=== PATIENT | female | born 1940 | race Caucasian/White ===

== ENCOUNTER 2016-09-01 15:50 | Inpatient (IN) | payer OTHER, BC ==
--- NOTE | 2016-09-01 16:21 | PDOC ---
History of Present Illness - General Stated Complaint: NAUSIA/VOMITING Time Seen by Provider: 09/01/16 16:19 - History of Present Illness Initial Comments: 09/01/16 17:33 patient is a 75 year old female with medical history significant for pancreatic ca diagnosed one year ago presenting with nausea and abdominal pain. Past History - Past Medical History Allergies/Adverse Reactions: Allergies Allergy/AdvReac Type Severity Reaction Status Date / Time shellfish derived Allergy Intermediate Verified 09/01/16 16:29 Home Medications: Ambulatory Orders Amlodipine Besylate [Norvasc -] 10 mg PO HS 11/23/15 Pantoprazole Sodium [Protonix] 40 mg PO DAILY 11/23/15 Tramadol HCl [Ultram] 50 mg PO Q8H #10 tablet MDD 3 tabs 11/24/15 Lipase/Protease/Amylase [Creon Dr 24,000 Units Capsule] 2 each PO TID 09/01/16 Anemia: No Asthma: No Cancer: No Cardiac Disorders: No CVA: No COPD: No CHF: No Dementia: No Diabetes: No GI Disorders: Yes (GERD) Disorders: No HTN: Yes Hypercholesterolemia: Yes Kidney Stones: Yes Liver Disease: No Seizures: No Thyroid Disease: No - Surgical History Abdominal Surgery: Yes (ercp) Appendectomy: No Cardiac Surgery: No Cholecystectomy: No Lung Surgery: No Neurologic Surgery: No Orthopedic Surgery: No - Immunization History Immunization Up to Date: Yes - Psycho/Social/Smoking Cessation Hx Anxiety: No Suicidal Ideation: No Smoking Status: No Smoking History: Never smoked Have you smoked in the past 12 months: No Number of Cigarettes Smoked Daily: 0 Cigars Per Day: 0 Hx Alcohol Use: No Drug/Substance Use Hx: No Hx Substance Use Treatment: No ED Treatment Course - LABORATORY CBC & Chemistry Diagram: 09/01/16 17:40 09/01/16 17:40 - RADIOLOGY Radiograph Interpretation: 09/01/16 21:15 Exam: Noncontrast CT abdomen and pelvis Images: 482 Clinical indication: Abdominal pain. A prior examination performed on November 05, 2011 was reviewed. Findings: Subsegmental dependent atelectatic changes are noted in the lung bases. Hepatic hypodensities are unchanged. There's been interval placement of a CBD stent. Pneumobilia indicates patency of the stent. The gallbladder is edematous with high attenuation material in the gallbladder lumen that may represent sludge or stones. Strandy infiltration is noted in the pericholecystic fat. The spleen and pancreas have a normal unenhanced appearance. The adrenal glands are unremarkable. The kidneys have a normal unenhanced appearance. No calculi are seen. There is no hydronephrosis or hydroureter. The gastrointestinal tract does not appear obstructed. No thickened or dilated bowel is seen. The appendix has a normal appearance. There is no mesenteric infiltration. There is no free fluid. The uterus has a lobulated contour consistent with the presence of fibroids several of which appear partially calcified. No adnexal masses are seen. The urinary bladder is unremarkable. No abdominal or pelvic adenopathy is seen. Impression: Interval placement of a CBD stent which appears patent. Edematous thickening of the gallbladder wall with stranding in the pericholecystic fat. Consider cholecystitis. Medical Decision Making - Medical Decision Making 09/01/16 17:30 patient mainly c/o nausia zofran Patient also c/o smith but concerned about taking PO ofirmir, 1000 09/01/16 18:32 patient has history of contrast induced nephritis from CT contrast. Order CT abdomen w/o contrast 09/01/16 21:09 Spoke with patients GI, Dr. Arik Marte, [phone] about patient and he asked if we could admit her and he can arrange transfer tomorrow. 09/01/16 21:[address] Pugh regarding admitting patient. She will speak with the hospitalist, Dr. Doherty, regarding any recommendations. 09/01/16 22:02 Had a long conversation with the patient and her about the plan. They were initially concerned about staying in the hospital but eventually agreed that would be the best course. 09/01/16 22:04 Patient was accepted to med/surg by Dr. Doherty. Rec Levo and Flagyl *DC/Admit/Observation/Transfer Diagnosis at time of Disposition: Cholecystitis, LFT elevation, Hyperbilirubinemia - Discharge Dispostion Admit: Yes
--- NOTE | 2016-09-01 16:21 | PDOC ---
Attending Attestation - HPI HPI: The patient is a 75 yo F with a PMHx of HTN, GERD, gallstones and recent Dx of pancreatic CA (pancreatic stent placement last September) who presents with severe abdominal pain that is worse on the R side for 1 day. Patient describes the pain was 10/10 and notes that the pain has diminished slightly since taking toradol earlier today. Patient states that she was able to eat oatmeal and coffee this morning, but later today was nauseous. Patient denies vomiting and diarrhea. Patient states her last BM was 2 days ago. Patient states she can pass gas. Patient endorses fever (taken at home to be 100.1) and chills. Patient denies dysuria. Patient notes she had an MRI 1 month ago that showed her pancreatic CA had not changed in size. PCP: Dr. Columba Zheng Oncologist: Cortez Isidro [phone] GI: Estuardo Elise [phone] (cell) [phone] (work) Radiation Claude Guojames [phone] - Physicial Exam PE: GENERAL: Awake, alert, and fully oriented, in no acute distress HEAD: No signs of trauma EYES: PERRLA, EOMI, sclera anicteric, conjunctiva clear ENT: Auricles normal inspection, hearing grossly normal, nares patent, oropharynx clear without exudates. Moist mucosa NECK: Normal ROM, supple, no lymphadenopathy, JVD, or masses LUNGS: Breath sounds equal, clear to auscultation bilaterally. No wheezes, and no crackles HEART: Regular rate and rhythm, normal S1 and S2, no murmurs, rubs or gallops ABDOMEN: Soft, Tender to palpation in epigastric region. Nonsurgical, normoactive bowel sounds. No guarding, no rebound. No masses EXTREMITIES: Normal range of motion, no edema. No clubbing or cyanosis. No cords, erythema, or tenderness NEUROLOGICAL: Cranial nerves II through XII grossly intact. Normal speech, gait not assessed SKIN: Warm, Dry, normal turgor, no rashes or lesions noted - Medical Decision Making Will obtain: Labs Abdomen and Pelvis CT Urine culture Blood cultures Lipase Will reassess Documentation prepared by Geovanna Starr, acting as medical records assistant for Srini Montoya MD/. <Geovanna Starr - Last Filed: 09/01/16 17:38> - ED Attending Attestation I have performed the following: I have examined & evaluated the patient, The case was reviewed & discussed with the resident, I agree w/resident's findings & plan, Exceptions are as noted <Srini Montoya - Last Filed: 09/05/16 16:56>
[2016-09-01 16:29] VITALS: BMI 21.9
[2016-09-01] MEDS ORDERED: SODIUM CHLORIDE 1,000 ML IV STA (17:06)
[2016-09-01] MEDS ORDERED: ONDANSETRON 4 MG/2 ML VIAL IVPB ONE (17:10)
[2016-09-01] MEDS ORDERED: ACETAMINOPHEN 1000 MG/100 ML VIAL (NON FORMULARY) IVPB ONE (17:34)
[2016-09-01 17:48] LABS: BASOPHIL 0.3 % (0-2.0); MCH 27.5 pg (25.7-33.7); MCHC 32.6 g/dl (32.0-36.0); MEAN CELL VOLUME 84.4 fl (80-96); MEAN PLT VOLUME 7.8 fl (7.5-11.1); PLATELET COUNT 186 K/MM3 (134-434); RDW 13.5 % (11.6-15.6); WHITE BLOOD COUNT 7.1 K/mm3 (4.0-10.0)
[2016-09-01] MEDS ORDERED: ONDANSETRON 4 MG/2 ML VIAL ONE (17:49)
[2016-09-01 18:00] LABS: INR 1.12 (0.82-1.09); PROTHROMBIN TIME (PATIENT) 12.3 SEC (9.98-11.88)
[2016-09-01] MEDS ORDERED: ACETAMINOPHEN INJECTION 100 ML IVPB ONE (18:08)
[2016-09-01 18:16] LABS: ALBUMIN 3.7 g/dl (3.4-5.0); ANION GAP 8 (8-16); BILIRUBIN,DIRECT 0.6 mg/dL (0.0-0.2); BILIRUBIN,TOTAL 1.3 mg/dL (0.2-1.0); CALCIUM 8.7 mg/dL (8.5-10.1); CO2 27 mmol/L (21-32); CREATININE 0.6 mg/dL (0.55-1.02); GLUCOSE,RANDOM 148 mg/dL (74-106); SGOT/AST 302 U/L (15-37); SGPT/ALT 244 U/L (12-78); TOT PROT 7.6 g/dl (6.4-8.2)
[2016-09-01 18:17] LABS: ALK PHOS 216 U/L (45-117)
--- NOTE | 2016-09-01 21:42 | HP ---
HISTORY OF PRESENT ILLNESS: Patient is a 75 year old female with a PMHx of HTN, GERD, and Pancreatic cancer (s/p CBD stent 09/2015), Cholelithiasis/Choledocholithiasis s/p ERCP who presented with severe right sided abdominal pain for the last 24 hours. Patient took Toradol with little relief but was unable to tolerate food due to associated symptom of nausea, which prompted this ED visit. Patient otherwise denies chest pain, palpitations, shortness of breath, loss of consciousness, hematuria, dysuria. HOME MEDICATIONS: Home Medications Medication Instructions Recorded Amlodipine Besylate [Norvasc -] 10 mg PO HS 11/23/15 Pantoprazole Sodium [Protonix] 40 mg PO DAILY 11/23/15 Tramadol HCl [Ultram] 50 mg PO Q8H #10 tablet MDD 3 tabs 11/24/15 Lipase/Protease/Amylase [Creon Dr 2 each PO TID 09/01/16 24,000 Units Capsule] PHYSICAL EXAMINATION Vital Signs - 24 hr 09/01/16 09/01/16 15:50 18:53 Temperature 98.8 F 98.6 F Pulse Rate 68 Pulse Rate [ 74 Right Radial] Respiratory 18 22 Rate Blood Pressure 132/60 Blood Pressure 121/56 [Right Arm] O2 Sat by Pulse 100 99 Oximetry (%) GENERAL: Awake, alert, and fully oriented, in no acute distress. EYES: Sclera anicteric, conjunctiva clear. EARS, NOSE, THROAT: Oropharynx clear without exudates. Moist mucous membranes. LUNGS: Breath sounds equal, clear to auscultation bilaterally. No wheezes, and no crackles. No accessory muscle use. HEART: Regular rate and rhythm, normal S1 and S2 without murmur, rub or gallop. ABDOMEN: Soft, nontender, not distended, normoactive bowel sounds, no guarding, no rebound, no masses. LOWER EXTREMITIES: 2+ pulses, warm, well-perfused. No calf tenderness. No peripheral edema. NEUROLOGICAL: Normal speech. No focal deficits Laboratory Results - last 24 hr 09/01/16 09/01/16 09/01/16 17:40 17:40 17:40 WBC 7.1 RBC 4.40 D Hgb 12.1 D Hct 37.1 D MCV 84.4 MCH 27.5 MCHC 32.6 RDW 13.5 Plt Count 186 MPV 7.8 Neutrophils % 91.0 H D Lymphocytes % 3.8 L D Monocytes % 4.9 Eosinophils % 0.0 D Basophils % 0.3 INR 1.12 Sodium 139 Potassium 4.0 Chloride 104 Carbon Dioxide 27 Anion Gap 8 BUN 16 D Creatinine 0.6 D Creat Clearance w eGFR > 60 Random Glucose 148 H D Calcium 8.7 Total Bilirubin 1.3 H D Direct Bilirubin 0.6 H AST 302 H D ALT 244 H D Alkaline Phosphatase 216 H D Total Protein 7.6 D Albumin 3.7 D Lipase 217 Blood Type Antibody Screen 09/01/16 17:40 WBC RBC Hgb Hct MCV MCH MCHC RDW Plt Count MPV Neutrophils % Lymphocytes % Monocytes % Eosinophils % Basophils % INR Sodium Potassium Chloride Carbon Dioxide Anion Gap BUN Creatinine Creat Clearance w eGFR Random Glucose Calcium Total Bilirubin Direct Bilirubin AST ALT Alkaline Phosphatase Total Protein Albumin Lipase Blood Type B POSITIVE Antibody Screen Negative IMAGES Non-contrast CT Abdo/Pelvis: Subsegmental dependent atelectatic changes are noted in the lung bases. Hepatic hypodensities are unchanged. There's been interval placement of a CBD stent. Pneumobilia indicates patency of the stent. The gallbladder is edematous with high attenuation material in the gallbladder lumen that may represent sludge or stones. Strandy infiltration is noted in the pericholecystic fat. The spleen and pancreas have a normal unenhanced appearance. The adrenal glands are unremarkable. The kidneys have a normal unenhanced appearance. No calculi are seen. There is no hydronephrosis or hydroureter. The gastrointestinal tract does not appear obstructed. No thickened or dilated bowel is seen. The appendix has a normal appearance. There is no mesenteric infiltration. There is no free fluid. The uterus has a lobulated contour consistent with the presence of fibroids several of which appear partially calcified. No adnexal masses are seen. The urinary bladder is unremarkable. No abdominal or pelvic adenopathy is seen. Impression: Interval placement of a CBD stent which appears patent. Edematous thickening of the gallbladder wall with stranding in the pericholecystic fat. Consider cholecystitis. ASSESSMENT/PLAN: Patient is a 75 year old female with a PMHx of HTN, GERD, and Pancreatic cancer , Choledocholithiasis s/p CBD stent 09/2015 who presented with severe right sided abdominal associated with Nausea. CT revealed Cholecystitis and admitted for further monitoring and management. Acute on Chronic Cholecystitis -CT revealed gallbladder wall thickening with stranding. -History of CBD stent and pancreatic stent -IV NS @100mls/hr -IV Abx with Levaquin and Flagyl -MRCP/ERCP -Prochlorperazine for nausea -Morphine for pain control -Blood and Urine cultures pending -GI consult -Surgical consult -NPO -Type and screen, Coagulations -PT HTN -Continue current home medications GERD -Continue home medications Pancreatic Cancer -Diagnosed February 2016 -Continue home medication Lipase/Protease/Amylase 2 each PO TID -Follow up with Dr. Cortez Isidro as outpatient -Follow up Dr. Marte as outpatient Prophylaxis -Due to history of malignancy, will give one time dose of Lovenox for DVT and hold after that for possible procedure Disposition -Full code -Admit to med/surg. GI and surgical consult placed Visit type - Emergency Visit Emergency Visit: Yes ED Registration Date: 09/01/16 Care time: The patient presented to the Emergency Department on the above date and was hospitalized for further evaluation of their emergent condition. - New Patient This patient is new to me today: Yes Date on this admission: 09/02/16 - Critical Care Critical Care patient: No
[2016-09-01 21:44] LABS: URINE APPEARANCE CLEAR; URINE BILIRUBIN NEGATIVE (NEGATIVE); URINE COLOR LTYELLOW; URINE GLUCOSE (UA) 1+ (NEGATIVE); URINE KETONE 1+ (NEGATIVE); URINE LEUK ESTERASE NEGATIVE (NEGATIVE); URINE NITRITE NEGATIVE (NEGATIVE); URINE PROTEIN NEGATIVE (NEGATIVE); URINE UROBILINOGEN NEGATIVE E.U./dl (0.2-1.0)
[2016-09-01 21:45] LABS: URINE BLOOD 1+ (NEGATIVE)
[2016-09-01 22:02] LABS: URINE MUCUS RARE; URINE RBC 1 /hpf (0-3); URINE WBC 1 /hpf (3-5)
[2016-09-01] MEDS ORDERED: METRONIDAZOLE 500 MG PREMIXED 100 ML IVPB ONE (22:10)
[2016-09-01] MEDS ORDERED: LEVOFLOXACIN 500 MG IVPB 100 ML IVPB ONE ×2 (22:10→22:23)
--- NOTE | 2016-09-01 22:15 | PN ---
Teaching Attending Note Name of Resident: Luann Yan ATTENDING PHYSICIAN STATEMENT I saw and evaluated the patient. I reviewed the resident's note and discussed the case with the resident. I agree with the resident's findings and plan as documented. SUBJECTIVE: 75 yo F with Pmhx of HTN, GERD, Gallstones, nephrolithiasis, cholelithiasis s/ p ERCP, Pancreatic CA (s/p stent CBD 10/09) who presents with abdominal pain. Pain located on right side. States she was febrile to 101. States pancreatic Ca , recently evaluated by PET with no mets. She had refused a whipple. States she follows with at [place]. No current abdominal pain, N/V/D. No fevers or chills. No chest pain or pressur. OBJECTIVE: Physical: VS: Vital Signs Period Temp Pulse Resp BP Sys/[place] Pulse Ox Last 24 Hr 98.6 F-98.8 F 68-74 18-22 121-132/56-60 99-100 GEN: NAD, Resting in bed HEENT: NCAT, PERRL, Throat without erythema or exudates CARD: RRR S1, S2 RESP: CTAB ABD: BS X4, NTD to palpation, No RuQ pain EXT: - C/C/E CBCD WBC 7.1 K/mm3 (4.0-10.0) 09/01/16 17:40 RBC 4.40 M/mm3 (3.60-5.2) D 09/01/16 17:40 Hgb 12.1 GM/dL (10.7-15.3) D 09/01/16 17:40 Hct 37.1 % (32.4-45.2) D 09/01/16 17:40 MCV 84.4 fl (80-96) 09/01/16 17:40 MCHC 32.6 g/dl (32.0-36.0) 09/01/16 17:40 RDW 13.5 % (11.6-15.6) 09/01/16 17:40 Plt Count 186 K/MM3 (134-434) 09/01/16 17:40 MPV 7.8 fl (7.5-11.1) 09/01/16 17:40 CMP Sodium 139 mmol/L (136-145) 07/09/17 17:40 Potassium 4.0 mmol/L (3.5-5.1) 09/01/16 17:40 Chloride 104 mmol/L (98-107) 09/01/16 17:40 Carbon Dioxide 27 mmol/L (21-32) 09/01/16 17:40 Anion Gap 8 (8-16) 09/01/16 17:40 BUN 16 mg/dL (7-18) D 09/01/16 17:40 Creatinine 0.6 mg/dL (0.55-1.02) D 09/01/16 17:40 Creat Clearance w eGFR > 60 (>60) 09/01/16 17:40 Random Glucose 148 mg/dL (74-106) H D 09/01/16 17:40 Calcium 8.7 mg/dL (8.5-10.1) 09/01/16 17:40 Total Bilirubin 1.3 mg/dL (0.2-1.0) H D 09/01/16 17:40 AST 302 U/L (15-37) H D 09/01/16 17:40 ALT 244 U/L (12-78) H D 09/01/16 17:40 Alkaline Phosphatase 216 U/L (45-117) H D 09/01/16 17:40 Total Protein 7.6 g/dl (6.4-8.2) D 09/01/16 17:40 Albumin 3.7 g/dl (3.4-5.0) D 09/01/16 17:40 CT ABDOMEN/PELVIS: Non-contrast CT Abdo/Pelvis: Subsegmental dependent atelectatic changes are noted in the lung bases. Hepatic hypodensities are unchanged. There's been interval placement of a CBD stent. Pneumobilia indicates patency of the stent. The gallbladder is edematous with high attenuation material in the gallbladder lumen that may represent sludge or stones. Strandy infiltration is noted in the pericholecystic fat. The spleen and pancreas have a normal unenhanced appearance. The adrenal glands are unremarkable. The kidneys have a normal unenhanced appearance. No calculi are seen. There is no hydronephrosis or hydroureter. The gastrointestinal tract does not appear obstructed. No thickened or dilated bowel is seen. The appendix has a normal appearance. There is no mesenteric infiltration. There is no free fluid. The uterus has a lobulated contour consistent with the presence of fibroids several of which appear partially calcified. No adnexal masses are seen. The urinary bladder is unremarkable. No abdominal or pelvic adenopathy is seen. Impression: Interval placement of a CBD stent which appears patent. Edematous thickening of the gallbladder wall with stranding in the pericholecystic fat. Consider cholecystitis. ASSESSMENT AND PLAN: 75 F with pmhx of HTN, GERD, Nephrolithiasis, choleycysititis s/p ERCP with CBD stent placement, pancreatic ca ( not on any tx), who presents with abdominal pain found to have acute choleycystitis. 1.) Acute Choleycystitis - NPO - IVF - GI consult - Abd us - HIDA - Coags/Type and screen - CBC - Sx. Consult 2.) HTN - C/w Home meds 3.) GERD - C/w home meds 4.) Pancreatic ca - FU outpt Oncologist 5.) Dvt Ppx - Mod-High risk - Lovenox 40 Sq daily - Stop prior to procedure Rest as per resident note Place in Med-Sx
--- NOTE | 2016-09-02 00:14 | HP ---
CHIEF COMPLAINT: abdominal pain/nausea PCP: Dr. Columba Zheng GI: Dr. Arik Marte Onco: Dr. Cortez Isidro HISTORY OF PRESENT ILLNESS: 75yo woman with a PMH of pancreatic cancer (dx Feb 2016, not on treatment, no mets), chronic cholecystitis s/p ERCP and stent (09/2015), GERD, and HTN who presents with 1day of increasing severe upper abdominal pain and nausea. In September 2015, a CBD stent was placed for stricture. A month later following the ERCP/stent placement she was hospitalized here for acute cholecystitis that was treated with Zosyn. The etiology of the CBD stricture was unknown at the time, however, in February of this year, she was found to have pancreatic cancer confirmed by biopsy. At this time, she does not want a Whipple and has opted to proceed with radiation therapy and systemic chemotherapy, which has not yet begun. She was at her baseline state health when for the past 1xweek she noticed pale colored stools. Approximately 24h ago she had stabbing non-radiating epigastric pain that has migrated to her RUQ. She stated the pain has been increasing, and was most severe this morning with a 10/10 severity. She took 1xdose Ultram at home, which she states helped relieve her pain. She had a fever , which was measured to 100.1 at home. After taking the Ultram she felt acute onset nausea, but without emesis. At baseline she reports constipation for which she takes Colace PRN. Her last BM was on . She denies melena or hematochezia. She denies any diaphoresis, SOB, chest pain, palpitation and dizziness. In the ED her VS were 98.8F oral, HR 74, 121/56, 18, 99% on RA. She received 1x Metronidazole 500mg IVPB 23:00, 1x Levofloxacin 500mg IVPB 23:00, and 1x Zofran 4mg IVPB. She was admitted to Med/Surg for acute cholecystitis. 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 with no children. Smoking: never Alcohol: none Drugs: none Family History: mother - "GB problems", had cholecystectomy in s Allergies: shellfish --> Hives HOME MEDICATIONS: Home Medications Medication Instructions Recorded Amlodipine Besylate [Norvasc -] 10 mg PO HS 11/23/15 Pantoprazole Sodium [Protonix] 40 mg PO DAILY 11/23/15 Tramadol HCl [Ultram] 50 mg PO Q8H #10 tablet MDD 3 tabs 11/24/15 Lipase/Protease/Amylase [Creon Dr 2 each PO TID 09/01/16 24,000 Units Capsule] Colace PRN REVIEW OF SYSTEMS CONSTITUTIONAL: +fever, night sweats (last several months, requires a change of clothes) Absent: diaphoresis, generalized weakness, malaise, loss of appetite, weight change HEENT: Absent: rhinorrhea, nasal congestion, throat pain, throat swelling, difficulty swallowing, mouth swelling, ear pain, eye pain, visual changes CARDIOVASCULAR: Absent: chest pain, syncope, palpitations, irregular heart rate , lightheadedness, peripheral edema RESPIRATORY: Absent: cough, shortness of breath, dyspnea with exertion, orthopnea, wheezing, stridor, hemoptysis GASTROINTESTINAL: +abdominal pain, nausea, constipation Absent: abdominal distension, vomiting, diarrhea, constipation, melena, hematochezia GENITOURINARY: Absent: dysuria, frequency, urgency, hesitancy, hematuria, flank pain, genital pain MUSCULOSKELETAL: Absent: myalgia, arthralgia, joint swelling, back pain, neck pain SKIN: Absent: rash, itching, pallor HEMATOLOGIC/IMMUNOLOGIC: Absent: easy bleeding, easy bruising, lymphadenopathy, frequent infections ENDOCRINE: Absent: unexplained weight gain, unexplained weight loss, heat intolerance, cold intolerance NEUROLOGIC: Absent: headache, focal weakness or paresthesias, dizziness, unsteady gait, seizure, mental status changes, bladder or bowel incontinence PHYSICAL EXAMINATION Vital Signs - 24 hr 09/01/16 09/01/16 23:19 23:32 Temperature 98.3 F Pulse Rate 85 Respiratory 16 Rate Blood Pressure 143/73 O2 Sat by Pulse 100 Oximetry (%) GENERAL: Awake, alert, and fully oriented, in no acute distress. HEAD: Normal with no signs of trauma. EYES: Sclera anicteric, conjunctiva clear. EARS, NOSE, THROAT: Oropharynx clear without exudates. Moist mucous membranes. No sublingual jaundice. NECK: Supple without lymphadenopathy LUNGS: Breath sounds equal, clear to auscultation bilaterally. No wheezes, and no crackles. No accessory muscle use. HEART: Regular rate and rhythm, normal S1 and S2 without murmur, rub or gallop. ABDOMEN: Soft, nontender, not distended, normoactive bowel sounds, no guarding, no rebound, no masses. No hepatomegaly or splenomegaly. Negative Villeda's sign. : no suprapubic tenderness, no CVA tenderness. LOWER EXTREMITIES: 2+ pulses, warm, well-perfused. No peripheral edema. NEUROLOGICAL: Grossly intact, not formally tested. PSYCHIATRIC: Cooperative. Good eye contact. Appropriate mood and affect. SKIN: Warm, dry, normal turgor, no rashes or lesions noted. CBC, BMP 09/01/16 17:40 09/01/16 17:40 Laboratory Tests Hepatic Panel Total Bilirubin 1.3 mg/dL (0.2-1.0) H D 09/01/16 17:40 Direct Bilirubin 0.6 mg/dL (0.0-0.2) H 09/01/16 17:40 AST 302 U/L (15-37) H D 09/01/16 17:40 ALT 244 U/L (12-78) H D 09/01/16 17:40 Alkaline Phosphatase 216 U/L (45-117) H D 09/01/16 17:40 Albumin 3.7 g/dl (3.4-5.0) D 09/01/16 17:40 Laboratory Results - last 24 hr 09/01/16 09/01/16 09/01/16 17:40 17:40 17:40 WBC 7.1 RBC 4.40 D Hgb 12.1 D Hct 37.1 D MCV 84.4 MCH 27.5 MCHC 32.6 RDW 13.5 Plt Count 186 MPV 7.8 Neutrophils % 91.0 H D Lymphocytes % 3.8 L D Monocytes % 4.9 Eosinophils % 0.0 D Basophils % 0.3 INR 1.12 Sodium 139 Potassium 4.0 Chloride 104 Carbon Dioxide 27 Anion Gap 8 BUN 16 D Creatinine 0.6 D Creat Clearance w eGFR > 60 Random Glucose 148 H D Calcium 8.7 Total Bilirubin 1.3 H D Direct Bilirubin 0.6 H AST 302 H D ALT 244 H D Alkaline Phosphatase 216 H D Total Protein 7.6 D Albumin 3.7 D Lipase 217 Urine Color Urine Appearance Urine pH Urine Protein Urine Glucose (UA) Urine Ketones Urine Blood Urine Nitrite Urine Bilirubin Urine Urobilinogen Ur Leukocyte Esterase Urine RBC Urine WBC Urine Mucus Blood Type Antibody Screen 09/01/16 09/01/16 17:40 20:35 WBC RBC Hgb Hct MCV MCH MCHC RDW Plt Count MPV Neutrophils % Lymphocytes % Monocytes % Eosinophils % Basophils % INR Sodium Potassium Chloride Carbon Dioxide Anion Gap BUN Creatinine Creat Clearance w eGFR Random Glucose Calcium Total Bilirubin Direct Bilirubin AST ALT Alkaline Phosphatase Total Protein Albumin Lipase Urine Color Ltyellow Urine Appearance Clear Urine pH 6.0 Urine Protein Negative Urine Glucose (UA) 1+ H Urine Ketones 1+ H Urine Blood 1+ H Urine Nitrite Negative Urine Bilirubin Negative Urine Urobilinogen Negative Ur Leukocyte Esterase Negative Urine RBC 1 Urine WBC 1 Urine Mucus Rare Blood Type B POSITIVE Antibody Screen Negative EKG: normal sinus rhythm, QTc 471 CT Abd/Pelvis w/o contrast (09/01/16): "Bulky soft tissue density about the head and uncinate process of the pancrease and proximal duodenum which is increased from prior CT with associated soft tissue stranding possibly representing progression of neoplasm with superimposed pancreatitis. Dilation of the pancreatic duct is stable to slightly increased from prior with a few calcifications in the pancreatic body again noted. There is a stable metallic biliary stent with pneumobilia again noted. Hepatic cysts are again noted. Thickening of the gallbladder wall with heterogenous low attentuation contents is concerning for cholecystitis although appearance is improved from prior CT. The unenhanced upper abdominal visceral organs are otherwise unremarkable." ASSESSMENT/PLAN: 75yo woman with PMH of pancreatic Ca (dx 7mo ago, treatment not initiated), chronic cholecystitis s/p ERCP and CBD stent (Sep 2015), GERD, and HTN who is here for RUQ pain likely due to acute cholecystitis. Possible cholelithiasis was detected on abdominal CT (hetergenous hypoattenuating GB contents), however , bedside RUQ U/S is still pending, which has higher sensitivity for detection of stones. Lab results are c/w with biliary obstruction, which could be 2/2 to progression of disease or obstruction of the CBD stent. #acute cholecystitis 2/2 cholelithiasis vs POD vs CBD stent obstruction -Metronidazole 500mg IVPB Q8H for anaerobic coverage -Levofloxacin 500mg IVPB Q24h for GN coverage (baseline QTc 471) -Repeat EKG for AM to monitor QTc -Prochlorperazine 2.5mg IVBP Q4H PRN for nausea -Morphine 1mg IVPB Q4H PRN for pain control -MCRP with contrast to assess biliary tree (coag studies, T&S for routine AM) -Blood Cx pending -Urine Cx pending -GI consult (Dr. Ortiz): appreciate recommendations -Surgery consult (Dr. Shell): appreciate recommendations -Bowel rest - NPO #Pancreatic Cancer -Continue home Lipase/Protease/Amylase [Rosa Sanches 24K Units Capsule] 2 each PO TID #GERD -Continue home pantoprazole 40mg PO daily #HTN -Continue home Amlodipine 10mg PO daily #F/E/N -NS @ 100cc/hr -Electrolytes wnl -NPO #DVT prophylaxis: moderate risk due to neoplasm -Enoxaparin 40mg SQ ONCE - resume if no procedure is planned -OOB as tolerated #Dispo -Admit to Med/Surg -FULL Code Visit type - Emergency Visit Emergency Visit: Yes ED Registration Date: 09/01/16 Care time: The patient presented to the Emergency Department on the above date and was hospitalized for further evaluation of their emergent condition. - New Patient This patient is new to me today: Yes Date on this admission: 09/02/16 - Critical Care Critical Care patient: No
[2016-09-02] MEDS ORDERED: ENOXAPARIN NA (PORCINE) 40 MG/0.4 ML DISP.SYRIN SQ ONE (00:29)
[2016-09-02] MEDS ORDERED: morphine CARPU-JECT 2 MG/1 ML DISP.SYRIN IVPUSH PRN (00:32)
[2016-09-02] MEDS ORDERED: PROCHLORPERAZINE INJECTION 10 MG/2 ML VIAL IVPB PRN (00:42)
[2016-09-02] MEDS: SODIUM CHLORIDE 1,000 ML IV SCH ×2 (01:27→20:00)
[2016-09-02] MEDS ORDERED: ACETAMINOPHEN 325 MG TABLET (FP) PO ONE ×2 (02:28→17:29)
[2016-09-02] MEDS ORDERED: ACETAMINOPHEN 650 MG SUPP.RECT PR ONE (04:45)
[2016-09-02] MEDS: METRONIDAZOLE 500 MG PREMIXED 100 ML IVPB SCH ×3 (05:27→18:12)
--- NOTE | 2016-09-02 08:22 | PN ---
Progress Note (short form) - Note Progress Note: surgery pt well known to me. will get HIDA to evaluate for acute cholecystitis. May have false positive with history of stent. If gb fills then not the source of fever. Billiary stent unlikely blocked without jaundice. HIDA would confirm that as well. May require perc drainage of gb if fevers dont improve on abx and hida positive.
--- NOTE | 2016-09-02 08:40 | PN ---
Physical Exam: SUBJECTIVE: Patient seen and examined at bedside. Pt complains of nausea (for which she had already received zofran), mild abdominal pain, and mild headache. Her temp went to 100.3 overnight and resolved immediately. No other complaints at this time. Pt denies CP, SOB, vomiting, diarrhea, dysuria. OBJECTIVE: Vital Signs Period Temp Pulse Resp BP Sys/Cop[place] Pulse Ox Last 24 Hr 97.5 F-100.3 F 61-85 16-18 103-143/51-73 100 GENERAL: The patient is awake, alert, and fully oriented, in no acute distress. HEAD: Normal with no signs of trauma. EYES: PERRL, extraocular movements intact, sclera anicteric, conjunctiva clear. No ptosis. ENT: Ears normal, nares patent, oropharynx clear without exudates, moist mucous membranes. NECK: Trachea midline, full range of motion, supple. LUNGS: Breath sounds equal, clear to auscultation bilaterally, no wheezes, no crackles, no accessory muscle use. HEART: Regular rate and rhythm, S1, S2 3/6 systolic murmur in the right sternal border, no rub or gallop. ABDOMEN: Soft, nontender, nondistended, normoactive bowel sounds, no guarding, no rebound, no hepatosplenomegaly, no masses. EXTREMITIES: 2+ pulses, warm, well-perfused, no edema. NEUROLOGICAL: Cranial nerves II through XII grossly intact. Normal speech, gait not observed. Sensation to touch intact in 4 limbs. Strength 5/5 in director of digital technology, shoulder abduction, elbow flexion/extension, hip flexion, plantar flexion. Reflexes 2+ b/ l at biceps, brachialis, and quadriceps. PSYCH: Normal mood, normal affect. SKIN: Warm, dry, normal turgor, no rashes or lesions noted Active Medications Generic Name Dose Route Start Last Admin Trade Name Freq PRN Reason Stop Dose Admin Amlodipine Besylate 10 mg 09/02/16 22:00 Norvasc - PO HS ALVIN Sodium Chloride 1,000 mls @ 100 mls/hr 09/02/16 00:15 09/02/16 01:27 Normal Saline - IV 100 mls/hr ASDIR ALVIN Administration Metronidazole 100 mls @ 100 mls/hr 09/02/16 06:00 09/02/16 05:27 Flagyl 500mg Premixed Ivpb - IVPB 100 mls/hr Q8H-IV ALVIN Administration Ceftriaxone Sodium 1 gm/ 50 mls @ 100 mls/hr 09/02/16 10:00 Dextrose IVPB DAILY ALVIN Morphine Sulfate 1 mg 09/02/16 00:32 Morphine Injection - IVPUSH Q4H PRN PAIN Non-Formulary Medication 2 each 09/02/16 06:00 Lipase/Protease/Amylase [Rosa Sanches 24,000 Units Capsule] PO TID ALVIN Pantoprazole Sodium 40 mg 09/02/16 10:00 Protonix - PO DAILY ALVIN ASSESSMENT/PLAN: 75yo woman with PMH of pancreatic Ca (dx 7mo ago, treatment not initiated), chronic cholecystitis s/p ERCP and CBD stent (Sep 2015), GERD, and HTN who is here for RUQ pain likely due to acute cholecystitis. #Acute cholecystitis 2/2 cholelithiasis -Zosyn 3.375gm IVPB Q8H -Metronidazole 500mg IVPB Q8H for anaerobic coverage -Blood Cx shows gram neg bacilli in anaerobic bottle. pending final report -HIDA scan today suggestive of cystic duct obstruction -Surgery consult (Dr. Shell): will f/u recommendations -GI consult (Dr. Ortiz): appreciate recommendations -Urine Cx pending -Morphine 1mg IVPB Q4H PRN for pain control #hypokalemia 2.9 -10meq KCl IVPB #GERD -Continue home pantoprazole 40mg PO daily #Pancreatic Cancer -Continue home Lipase/Protease/Amylase [Rosa Sanches 24K Units Capsule] 2 each PO TID -r/o DM: f/u A1c #HTN -Continue home Amlodipine 10mg PO daily #F/E/N -NS @ 100cc/hr -Electrolytes wnl -NPO #DVT prophylaxis: moderate risk due to neoplasm -OOB as tolerated -SCDs applied. No heparin given in anticipation of possible surgery tomorrow. #Dispo -Admit to Med/Surg -FULL Code Pharmacy was called. -Pantoparazole 40mg/Daily -Creon 24,000 units, 2 each TID -Z-pack on July 19 -Amlodipine 90mg -Nitroglycerine 0.4 -Diflanac gel 4g 4x daily -alrex eye drops 0.2% Visit type - Emergency Visit Emergency Visit: No - New Patient This patient is new to me today: No - Critical Care Critical Care patient: No
[2016-09-02] MEDS ORDERED: CEFTRIAXONE 50 ML IVPB SCH (10:00)
--- NOTE | 2016-09-02 10:29 | EKG ---
Test Reason : Blood Pressure : / mmHG Vent. Rate : 061 BPM Atrial Rate : 061 BPM P-R Int : 246 ms QRS Dur : 084 ms QT Int : 488 ms P-R-T Axes : 037 018 025 degrees QTc Int : 491 ms SINUS RHYTHM WITH 1ST DEGREE A-V BLOCK PROLONGED QT ABNORMAL ECG WHEN COMPARED WITH ECG OF 23-NOV-2015 01:10, NO SIGNIFICANT CHANGE WAS FOUND Confirmed by JESSIKA CAGLE MD ([id number]) on 09/02/2016 10:29:28 AM Referred By: TRU RILEY Confirmed By:JESSIKA CAGLE MD
[2016-09-02] MEDS ORDERED: ONDANSETRON 4 MG/2 ML VIAL IVPB ONE (11:45)
--- NOTE | 2016-09-02 13:48 | EKG ---
Test Reason : Blood Pressure : / mmHG Vent. Rate : 090 BPM Atrial Rate : 090 BPM P-R Int : 252 ms QRS Dur : 076 ms QT Int : 394 ms P-R-T Axes : 052 027 032 degrees QTc Int : 481 ms SINUS RHYTHM WITH 1ST DEGREE A-V BLOCK OTHERWISE NORMAL ECG WHEN COMPARED WITH ECG OF 23-NOV-2015 01:10, NO SIGNIFICANT CHANGE WAS FOUND Confirmed by ROSENDO ROSALES MD ([id number]) on 09/02/2016 1:48:05 PM Referred By: NIDIA Confirmed By:ROSENDO ROSALES MD
[2016-09-02] MEDS: PANTOPRAZOLE 40 MG TABLET (FP) PO SCH (14:30)
[2016-09-02] MEDS ORDERED: PIPERACILLIN/TAZOB 3.375 GM/50 ML PRE-DOCKED IVPB ONE (15:50)
[2016-09-02] MEDS ORDERED: GLYCERIN 1 RECTAL SUPPOSITORY, ADULT PR ONE (16:54)
--- NOTE | 2016-09-02 17:03 | PN ---
Progress Note (short form) - Note Progress Note: ID consult imp/reccd 75 year old female with pancreatic cancer and biliary stent admitted yesterday with acute onset of RUQ pain and nausea she was given levaquin and flagyl in the ED and rocephin and flagyl today she reports continued nausea that she attributes to the flagyl +blood culture with GNR bacteremia biliary sepsis ?acute cholycystitis zosyn/flagyl f/u HIDA surgical f/u Problem List - Problems (1) Gram-negative bacteremia Code(s): R78.81 - BACTEREMIA (2) Biliary sepsis Code(s): K83.0 - CHOLANGITIS
[2016-09-02] MEDS: PATIENT'S OWN MEDICATION (NON-FORMULARY) (Lipase/Protease/Amylase [Creon Dr 24,000 Units C PO SCH ×2 (17:16→18:12)
[2016-09-02] MEDS: amLODIPine BESYLATE 10 MG TABLET (FP) PO SCH (17:17)
[2016-09-02] MEDS: PIPERACILLIN/TAZOB 3.375 GM/50 ML PRE-DOCKED IVPB SCH (18:12)
--- NOTE | 2016-09-02 19:18 | PN ---
Teaching Attending Note Name of Resident: Marco Lopez ATTENDING PHYSICIAN STATEMENT I saw and evaluated the patient. I reviewed the resident's note and discussed the case with the resident. I agree with the resident's findings and plan as documented. SUBJECTIVE: Patient is a 75yo female presented with nausea with RUQ pain. Positive for mild fever OBJECTIVE: Vital Signs Temperature 100.5 F H 09/02/16 18:00 Pulse Rate 66 09/02/16 18:00 Respiratory Rate 18 09/02/16 18:00 Blood Pressure 144/73 09/02/16 18:00 O2 Sat by Pulse Oximetry (%) 99 09/02/16 09:00 CBCD WBC 7.1 K/mm3 (4.0-10.0) 09/01/16 17:40 RBC 4.40 M/mm3 (3.60-5.2) D 09/01/16 17:40 Hgb 12.1 GM/dL (10.7-15.3) D 09/01/16 17:40 Hct 37.1 % (32.4-45.2) D 09/01/16 17:40 MCV 84.4 fl (80-96) 09/01/16 17:40 MCHC 32.6 g/dl (32.0-36.0) 09/01/16 17:40 RDW 13.5 % (11.6-15.6) 09/01/16 17:40 Plt Count 186 K/MM3 (134-434) 09/01/16 17:40 MPV 7.8 fl (7.5-11.1) 09/01/16 17:40 CMP Sodium 139 mmol/L (136-145) 09/01/16 17:40 Potassium 4.0 mmol/L (3.5-5.1) 09/01/16 17:40 Chloride 104 mmol/L (98-107) 09/01/16 17:40 Carbon Dioxide 27 mmol/L (21-32) 09/01/16 17:40 Anion Gap 8 (8-16) 09/01/16 17:40 BUN 16 mg/dL (7-18) D 09/01/16 17:40 Creatinine 0.6 mg/dL (0.55-1.02) D 09/01/16 17:40 Creat Clearance w eGFR > 60 (>60) 09/01/16 17:40 Random Glucose 148 mg/dL (74-106) H D 09/01/16 17:40 Calcium 8.7 mg/dL (8.5-10.1) 09/01/16 17:40 Total Bilirubin 1.3 mg/dL (0.2-1.0) H D 09/01/16 17:40 AST 302 U/L (15-37) H D 09/01/16 17:40 ALT 244 U/L (12-78) H D 09/01/16 17:40 Alkaline Phosphatase 216 U/L (45-117) H D 09/01/16 17:40 Total Protein 7.6 g/dl (6.4-8.2) D 09/01/16 17:40 Albumin 3.7 g/dl (3.4-5.0) D 09/01/16 17:40 Current Medications Generic Name Dose Route Start Last Admin Trade Name Freq PRN Reason Stop Dose Admin Amlodipine Besylate 10 mg 09/02/16 17:00 09/02/16 17:17 Norvasc - PO 10 mg DAILY@1700 ALVIN Administration Sodium Chloride 1,000 mls @ 100 mls/hr 09/02/16 00:15 09/02/16 01:27 Normal Saline - IV 100 mls/hr ASDIR ALVIN Administration Metronidazole 100 mls @ 100 mls/hr 09/02/16 18:00 09/02/16 18:12 Flagyl 500mg Premixed Ivpb - IVPB Not Given Q8H-IV ALVIN Morphine Sulfate 1 mg 09/02/16 00:32 Morphine Injection - IVPUSH Q4H PRN PAIN Non-Formulary Medication 2 each 09/02/16 17:30 09/02/16 18:12 Lipase/Protease/Amylase [Rosa Sanches 24,000 Units Capsule] PO Not Given TIDCM ALVIN Pantoprazole Sodium 40 mg 09/02/16 10:00 09/02/16 14:30 Protonix - PO Not Given DAILY ALVIN Piperacillin Sod/Tazobactam Sod 3.375 gm 09/02/16 18:00 09/02/16 18:12 Zosyn 3.375gm Ivpb (Pre-Docked) IVPB Not Given Q8H-IV ALVIN Protocol Home Medications Medication Instructions Recorded Amlodipine Besylate [Norvasc -] 10 mg PO HS 11/23/15 Pantoprazole Sodium [Protonix] 40 mg PO DAILY 11/23/15 Tramadol HCl [Ultram] 50 mg PO Q8H #10 tablet MDD 3 tabs 11/24/15 Lipase/Protease/Amylase [Rosa Sanches 2 each PO TID 09/01/16 24,000 Units Capsule] PE: per resident's notes ASSESSMENT AND PLAN: Patient is a 75 year old female with a PMHx of HTN, GERD, and Pancreatic cancer , Choledocholithiasis s/p CBD stent 09/2015 who presented with severe right sided abdominal associated with Nausea. CT revealed Cholecystitis and admitted for further monitoring and management. # Acute on Chronic Cholecystitis , IVF, Hida scan ordered, Dr. Fonseca surgeon appreciated. # Hx of Pancreatic Cancer Diagnosed February 2016 # HTN Continue current home medications # GERD Continue home medications DVT px: SCds
--- NOTE | 2016-09-02 19:45 | CON.GI ---
Consult Consult Specialty:: gastroenterology Referred by:: hospitalist Reason for Consultation:: acute cholecystitis - History of Present Illness History of Present Illness: 75 /o female with PMH of pancreatic ca,s/p biliary stent insertion [address] Marte wasaditted because of worsenning epigastric pain for the past [address] Marte 3 days ago. SHe was given Creon and Nexium. Catscan was done in the ER, which revealed thickenned gallbladder wall. HIDA scan done today revealed cholecytitis and good tracer flow to the small bowel. The epigastric pain this evening is less She was offered a whipple procedure [address] Gonzalez but went for a conservative management. SHe was offered chemotherapy and radiation treatment but has not received it because she is afraid of the morbidity and being undecided. - Past Medical History ...: No - Alcohol/Substance Use Hx Alcohol Use: No - Smoking History Smoking history: Never smoked Have you smoked in the past 12 months: No Aproximately how many cigarettes per day: 0 Home Medications - Allergies Allergies/Adverse Reactions: Allergies Allergy/AdvReac Type Severity Reaction Status Date / Time shellfish derived Allergy Intermediate Verified 09/01/16 16:29 - Home Medications Home Medications: Ambulatory Orders Amlodipine Besylate [Norvasc -] 10 mg PO HS 11/23/15 Pantoprazole Sodium [Protonix] 40 mg PO DAILY 11/23/15 Tramadol HCl [Ultram] 50 mg PO Q8H #10 tablet MDD 3 tabs 11/24/15 Lipase/Protease/Amylase [Rosa Sanches 24,000 Units Capsule] 2 each PO TID 09/01/16 Review of Systems - Review of Systems Constitutional: reports: Fever Eyes: reports: No Symptoms. denies: Blurred Vision HENT: denies: Difficult Swallowing Neck: denies: Decreased ROM Cardiovascular: denies: Chest Pain Respiratory: denies: Cough Gastrointestinal: reports: Abdominal Pain. denies: Bloating, Constipation, Diarrhea, Indigestion, Melena, Nausea, Rectal Bleeding Physical Exam-GI Vital Signs: Vital Signs Temperature 100.5 F H 09/02/16 18:00 Pulse Rate 66 09/02/16 18:00 Respiratory Rate 18 09/02/16 18:00 Blood Pressure 144/73 09/02/16 18:00 O2 Sat by Pulse Oximetry (%) 99 09/02/16 09:00 Constitutional: Yes: Well Nourished Eyes: Yes: Conjunctiva Clear HENT: Yes: Atraumatic Neck: Yes: Trachea Midline Cardiovascular: Yes: Regular Rate and Rhythm Respiratory: Yes: CTA Bilaterally ...Palpate: Yes: Soft, Tenderness (-mild ruq). No: Firm/Rigid, Guarding, Hepatomegaly, Mass, Pulsatile Mass, Splenomegaly Labs: INR, PTT INR 1.12 (0.82-1.09) 09/01/16 17:40 CBCD WBC 7.1 K/mm3 (4.0-10.0) 09/01/16 17:40 RBC 4.40 M/mm3 (3.60-5.2) D 09/01/16 17:40 Hgb 12.1 GM/dL (10.7-15.3) D 09/01/16 17:40 Hct 37.1 % (32.4-45.2) D 09/01/16 17:40 MCV 84.4 fl (80-96) 09/01/16 17:40 MCHC 32.6 g/dl (32.0-36.0) 09/01/16 17:40 RDW 13.5 % (11.6-15.6) 09/01/16 17:40 Plt Count 186 K/MM3 (134-434) 09/01/16 17:40 MPV 7.8 fl (7.5-11.1) 09/01/16 17:40 CMP Sodium 139 mmol/L (136-145) 09/01/16 17:40 Potassium 4.0 mmol/L (3.5-5.1) 09/01/16 17:40 Chloride 104 mmol/L (98-107) 09/01/16 17:40 Carbon Dioxide 27 mmol/L (21-32) 09/01/16 17:40 Anion Gap 8 (8-16) 09/01/16 17:40 BUN 16 mg/dL (7-18) D 09/01/16 17:40 Creatinine 0.6 mg/dL (0.55-1.02) D 09/01/16 17:40 Creat Clearance w eGFR > 60 (>60) 09/01/16 17:40 Calcium 8.7 mg/dL (8.5-10.1) 09/01/16 17:40 Total Bilirubin 1.3 mg/dL (0.2-1.0) H D 09/01/16 17:40 AST 302 U/L (15-37) H D 09/01/16 17:40 ALT 244 U/L (12-78) H D 09/01/16 17:40 Alkaline Phosphatase 216 U/L (45-117) H D 09/01/16 17:40 Total Protein 7.6 g/dl (6.4-8.2) D 09/01/16 17:40 Albumin 3.7 g/dl (3.4-5.0) D 09/01/16 17:40 Problem List - Problems (1) Cholecystitis Assessment/Plan: doubt cholangitis as there was good flow of the tracer in the small bowel by Hida scan. This is difficult case as patient has pancreatic cancer and will be a poor surgical candidate. Shw was offered cholecystostomy but is undecided at this time R> continue IV hydraton continue antibiotics continue conservative management at this time Code(s): K81.9 - CHOLECYSTITIS, UNSPECIFIED
--- NOTE | 2016-09-02 21:11 | CONS ---
DATE OF CONSULTATION: 09/02/2016 REASON FOR CONSULTATION: Acute cholecystitis, pancreatitis. This is a consultation at the request of Dr. Dory Doherty. BRIEF HISTORY: This is a 75-year-old female, well known to me, who was previously seen for cholecystitis and biliary stricture. Since that time, she has been diagnosed with pancreatic cancer. She was offered exploratory surgery and Whipple and refused, and instead has opted for palliative chemotherapy and radiation therapy. She presents to [facility] with abdominal pain and nausea for the past 2 days. Her CAT scan showed a thickened abnormal gallbladder, and she had mildly elevated liver function tests. She denies diarrhea. Admits to weight loss. Her pain is in the right upper quadrant and epigastric area. Her past medical history is as in HPI. In addition, she has a biliary stent that was placed for obstruction. This is a metallic stent placed by Dr. Andino . She has gastroesophageal reflux disease, hypertension, left ventricular hypertrophy. She has diastolic heart dysfunction. She has reversible cardiac ischemia. She has diabetes and arthritis. Her past surgical history includes a stent placement and ERCP. Home medications include Norvasc, Protonix, Ultram, Colace, and pancreatic enzymes. Her social history is negative for alcohol, negative for tobacco. Family history is noncontributory. REVIEW OF SYSTEMS: General: Denies fatigue or malaise. Cardiac: Denies chest pain or palpitations. Respiratory: Denies shortness of breath or wheeze. Gastrointestinal: As in HPI. Genitourinary: Denies dysuria. Musculoskeletal: Denies joint pain, joint swelling. Psychiatric: Denies anxiety, depression, or hearing voices. PHYSICAL EXAMINATION: General: This is a thin 75-year-old female in no distress. Vital Signs: She has a low-grade fever of 100.3. Her vital signs are otherwise stable. HEENT: Her head is normocephalic. Her sclerae are not anicteric. Neck: Supple. Chest: Clear. Abdomen: Soft. She has a palpable mass in the right upper quadrant that is irregular in shape. She has no obvious surgical scars. She is not tender. Extremities: Her extremities have trace edema. On review of her laboratory, her white blood cell count is normal at 7.1. She has a 91% shift. Her chemistries show a mildly elevated total bilirubin of 1.3. Her direct bilirubin is mildly elevated at 0.6. Her AST is 302, which is elevated, her ALT is also elevated at 244, and her alkaline phosphatase is elevated at 216. Her lipase is normal. On review of her imaging, she has a CAT scan of her abdomen and pelvis, which shows a large mass at the pancreas and the proximal duodenum, which is increased in size, with inflammatory changes and progression. The pancreatic duct is noted to be dilated. The biliary stent is in place. Pneumobilia is expected and noted. There are cysts noted in the liver. The gallbladder is thickened with concern for cholecystitis, although the appearance is now improved compared to previous CAT scan. ASSESSMENT: This is a 75-year-old female with low-grade fever, worsening abdominal pain and nausea. She has clear progression of her pancreatic cancer on CAT scan, and she has chosen palliative treatment only. At this point, will get a HIDA scan to evaluate for acute cholecystitis. Unfortunately, this will have a high false-positive rate since her biliary stent may exclude visualization of the gallbladder. If her gallbladder fills, then obviously she does not have acute cholecystitis; however, if it does not, then she can be treated for acute cholecystitis. If she does not respond to medical management, can consider percutaneous drainage but currently she looks well and does not appear toxic, and since her concern is for palliative care, may wish to treat this problem with pain medication and antibiotics. There is no indication for exploratory surgery in a patient with pancreatic cancer at a [facility] for possible cholecystitis. She either has conservative management or percutaneous drainage. Will make further recommendations based on HIDA findings. The patient may also be a candidate for palliative care. DO MARIBETH [id number]
[2016-09-02] MEDS ORDERED: LEVOFLOXACIN 500 MG IVPB 100 ML IVPB SCH (22:00)
[2016-09-02] MEDS ORDERED: amLODIPine BESYLATE 10 MG TABLET (FP) PO SCH (22:00)
--- NOTE | 2016-09-02 22:34 | CONS ---
DATE OF CONSULTATION: DATE OF DICTATION: 09/02/2016 REQUESTED BY: Hospitalist service. This is a 75-year-old woman with a history of pancreatic cancer diagnosed in February of 2016. A year ago she had a biliary stent placed. She presents with a 1-day history of severe right upper quadrant pain and nausea. She had subjective fever at home, which was 100.1. She continued to have nausea at home, despite taking an Ultram, and she presented to the emergency room. In the ER, she had no fever. She was noted to have abnormal LFTs and she had cultures drawn and was given a dose of Levaquin and Flagyl. I am asked to see her today because 1 blood culture bottle was growing gram-negative bacilli. She is awake and alert. She reports less pain and continued nausea. She has been evaluated by Surgery and is awaiting the results of the HIDA scan. She is being followed by Dr. Shell. She is resting more comfortably. She had some fever overnight, as high as 100.3. Currently she is afebrile. Her past medical history is notable for pancreatic cancer diagnosed in 2017 after biopsy. Plans are for RT and chemotherapy. Number 2, she has a history of prior cholecystitis that was managed medically a year ago. Number 3, she has a history of hypertension. Number 4, history of GERD. She is status post ERCP with stent placement roughly 1 year ago. Surgical history is notable for stent placement for CBD stricture approximately a year ago. Family history is unremarkable. She is allergic to SHELLFISH, which gives her hives. Her medications at home include Norvasc, Protonix, Ultram, Creon, and Colace. SOCIAL HISTORY: She is retired. She is originally from the [facility]. She worked in the [employer]. 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 There is no history of cigarettes, alcohol, or substance use. She is and has no children. Review of systems is notable for subjective fever at home and the low-grade fever here. She has no cough. She has no dysuria. Abdominal pain is improved. She continues to have some nausea. PHYSICAL EXAMINATION: Vital Signs: A T-max is 100.3, current temperature is 98. Pulse of 74. Blood pressure 146/77. Respiratory rate is 18. She is saturating 99% on room air. HEENT: She is normocephalic. Eyes are anicteric. Neck: Supple. Lungs: Clear to auscultation. Heart: Regular rate and rhythm. Abdomen: Soft. She has some mild right upper quadrant discomfort to palpation. There is no distention. Extremities: Without edema. White count is 7.1, hemoglobin 12.1, platelets 186, INR is 1.1. BUN 16, creatinine 0.6, AST 302, ALT 244, alkaline phosphatase 216, with a total bilirubin of 1.3. Urinalysis is negative for leukocyte esterase. Blood culture, 1 of 4 bottles, is growing a gram-negative bacillus: ID and sensitivities are pending. She had a CAT scan of her abdomen and pelvis done in the emergency room that was notable for bulky soft tissue density around the head and uncinate process of the pancreas and proximal duodenum, which is increased from prior CT. She has dilatation of the pancreatic duct. She has a stable metallic biliary stent and she has thickening of the gallbladder wall with heterogeneous contents. She has a HIDA scan, the results of which are pending. In summary, this is a 75-year-old woman with bacteremia, gram-negative, most likely on the bases of biliary sepsis, possible acute cholecystitis. We will treat her with Zosyn and Flagyl, follow up her HIDA scan, and with surgical followup. Further recommendations to follow based on her clinical course. JENI JOSEPH M.D. [id number]
[2016-09-03] MEDS: METRONIDAZOLE 500 MG PREMIXED 100 ML IVPB SCH ×3 (01:14→17:19)
[2016-09-03] MEDS: SODIUM CHLORIDE 1,000 ML IV SCH ×3 (01:15→23:21)
[2016-09-03] MEDS: PIPERACILLIN/TAZOB 3.375 GM/50 ML PRE-DOCKED IVPB SCH ×3 (02:50→17:26)
[2016-09-03 06:47] LABS: MCH 27.9 pg (25.7-33.7); MCHC 33.1 g/dl (32.0-36.0); MEAN CELL VOLUME 84.4 fl (80-96); MEAN PLT VOLUME 7.3 fl (7.5-11.1); PLATELET COUNT 152 K/MM3 (134-434); RDW 13.7 % (11.6-15.6); WHITE BLOOD COUNT 4.8 K/mm3 (4.0-10.0)
[2016-09-03 07:00] LABS: INR 1.2 (0.82-1.09); PROTHROMBIN TIME (PATIENT) 13.2 SEC (9.98-11.88)
[2016-09-03 07:37] LABS: ALBUMIN 2.9 g/dl (3.4-5.0); ANION GAP 10 (8-16); CALCIUM 7.9 mg/dL (8.5-10.1); CO2 25 mmol/L (21-32); CREATININE 0.5 mg/dL (0.55-1.02); GLUCOSE,RANDOM 110 mg/dL (74-106); SGOT/AST 44 U/L (15-37); SGPT/ALT 96 U/L (12-78)
[2016-09-03 07:39] LABS: ALK PHOS 139 U/L (45-117); BILIRUBIN,TOTAL 0.5 mg/dL (0.2-1.0); TOT PROT 6.1 g/dl (6.4-8.2)
[2016-09-03] MEDS: PANTOPRAZOLE 40 MG TABLET (FP) PO SCH ×2 (09:06→12:39)
[2016-09-03] MEDS: PATIENT'S OWN MEDICATION (NON-FORMULARY) (Lipase/Protease/Amylase [Creon Dr 24,000 Units C PO SCH ×3 (09:06→17:19)
[2016-09-03] MEDS ORDERED: CEFTRIAXONE 100 ML IVPB SCH (10:00)
[2016-09-03 11:14] LABS: MAGNESIUM 2.1 mg/dL (1.8-2.4); PHOSPHOROUS 1.8 mg/dL (2.5-4.9)
[2016-09-03] MEDS: KCL 10 MEQ IVPB 100 ML IVPB SCH ×2 (12:39→14:24)
[2016-09-03] MEDS ORDERED: POTASSIUM CHLORIDE TABS 20 MEQ TABLET.ER (FP) PO ONE (13:00)
--- NOTE | 2016-09-03 14:37 | PN ---
Progress Note (short form) - Note Progress Note: awake and alert less abdominal pain having fever Vital Signs Period Temp Pulse Resp BP Sys/Copeland Pulse Ox Last 24 Hr 98.2 F-101.2 F 66-79 18-18 136-144/66-73 99 cor-rrr lungs clear abd soft,mild RUQ discomfort ext no edema CBC, BMP 09/03/16 05:50 09/03/16 05:50 lfts improved HIDA scan-acute cholyeystitis a/p gram negative bacteremia acute cholecystitis pancreatic cancer zosyn/flagyl f/u blood cultures d/w hospitalist service, they will speak with surgery Problem List - Problems (1) Gram-negative bacteremia Code(s): R78.81 - BACTEREMIA (2) Biliary sepsis Code(s): K83.0 - CHOLANGITIS
[2016-09-03] MEDS ORDERED: POTASSIUM CHLORIDE ORAL LIQUID 20 MEQ/15 ML PO ONE (14:44)
--- NOTE | 2016-09-03 15:19 | PN ---
Physical Exam: SUBJECTIVE: Patient seen and examined at bedside. Pt was febrile overnight. No complaints at this time. Pt denies headache, cp, sob, abd pain, nausea, vomiting , diarrhea, dysuria, fever. OBJECTIVE: Vital Signs Period Temp Pulse Resp BP Sys/Copeland Pulse Ox Last 24 Hr 98.2 F-101.2 F 66-79 18-18 136-144/66-73 99 GENERAL: The patient is awake, alert, and fully oriented, in no acute distress. HEAD: Normal with no signs of trauma. EYES: PERRL, extraocular movements intact, sclera anicteric, conjunctiva clear. No ptosis. ENT: Ears normal, nares patent, oropharynx clear without exudates, moist mucous membranes. NECK: Trachea midline, full range of motion, supple. LUNGS: Breath sounds equal, clear to auscultation bilaterally, no wheezes, no crackles, no accessory muscle use. HEART: Regular rate and rhythm, S1, S2 without murmur, rub or gallop. ABDOMEN: Soft, nontender, nondistended, normoactive bowel sounds, no guarding, no rebound, firm RUQ mass detected on deep palpation. EXTREMITIES: 2+ pulses, warm, well-perfused, no edema. NEUROLOGICAL: Cranial nerves II through XII grossly intact. Normal speech, gait not observed. PSYCH: Normal mood, normal affect. SKIN: Warm, dry, normal turgor, no rashes or lesions noted Laboratory Results - last 24 hr 09/03/16 09/03/16 09/03/16 05:50 05:50 05:50 WBC 4.8 D RBC 4.09 Hgb 11.4 Hct 34.5 MCV 84.4 MCH 27.9 MCHC 33.1 RDW 13.7 Plt Count 152 MPV 7.3 L INR 1.20 H Sodium 140 Potassium 2.9 L* D Chloride 105 Carbon Dioxide 25 Anion Gap 10 BUN 9 D Creatinine 0.5 L Creat Clearance w eGFR > 60 Random Glucose 110 H D Hemoglobin A1c % Calcium 7.9 L Phosphorus 1.8 L Magnesium 2.1 Total Bilirubin 0.5 D AST 44 H D ALT 96 H D Alkaline Phosphatase 139 H D Total Protein 6.1 L Albumin 2.9 L D 09/03/16 09/03/16 05:50 05:50 WBC RBC Hgb Hct MCV MCH MCHC RDW Plt Count MPV INR Sodium Potassium Chloride Carbon Dioxide Anion Gap BUN Creatinine Creat Clearance w eGFR Random Glucose Hemoglobin A1c % 6.9 H Calcium Phosphorus Cancelled Magnesium Cancelled Total Bilirubin AST ALT Alkaline Phosphatase Total Protein Albumin Active Medications Generic Name Dose Route Start Last Admin Trade Name Freq PRN Reason Stop Dose Admin Amlodipine Besylate 10 mg 09/02/16 17:00 09/02/16 17:17 Norvasc - PO 10 mg DAILY@1700 ALVIN Administration Sodium Chloride 1,000 mls @ 100 mls/hr 09/02/16 00:15 09/03/16 06:21 Normal Saline - IV 100 mls/hr ASDIR ALVIN Administration Metronidazole 100 mls @ 100 mls/hr 09/02/16 18:00 09/03/16 09:06 Flagyl 500mg Premixed Ivpb - IVPB 100 mls/hr Q8H-IV ALVIN Administration Morphine Sulfate 1 mg 09/02/16 00:32 Morphine Injection - IVPUSH Q4H PRN PAIN Non-Formulary Medication 2 each 09/02/16 17:30 09/03/16 12:41 Lipase/Protease/Amylase [Rosa Sanches 24,000 Units Capsule] PO 2 each TIDCM ALVIN Administration Pantoprazole Sodium 40 mg 09/02/16 10:00 09/03/16 12:39 Protonix - PO 40 mg DAILY ALVIN Administration Piperacillin Sod/Tazobactam Sod 3.375 gm 09/02/16 18:00 09/03/16 09:04 Zosyn 3.375gm Ivpb (Pre-Docked) IVPB 3.375 gm Q8H-IV ALVIN Administration Protocol Potassium Chloride 40 meq 09/03/16 14:44 Potassium Chloride Oral Liquid PO 09/03/16 14:45 ONCE ONE ASSESSMENT/PLAN: 75yo woman with PMH of pancreatic Ca (dx 7mo ago, treatment not initiated), chronic cholecystitis s/p ERCP and CBD stent (Sep 2015), GERD, and HTN who is here for RUQ pain likely due to acute cholecystitis. #Acute cholecystitis 2/2 cholelithiasis -Blood Cx shows E. coli in anaerobic bottle -Urine Cx pending -HIDA scan today suggestive of cystic duct obstruction -Surgery consult (Dr. Shell): will f/u recommendations -GI consult (Dr. Ortiz): appreciate recommendations -Zosyn 3.375gm IVPB Q8H -Metronidazole 500mg IVPB Q8H for anaerobic coverage -Morphine 1mg IVPB Q4H PRN for pain control #hypokalemia: resolved -Dur PO 20meq BID x 2 days. -was 2.9, now 3.4 #GERD -Continue home pantoprazole 40mg PO daily #Pancreatic Cancer -Continue home Lipase/Protease/Amylase [Creon Dr 24K Units Capsule] 2 each PO TID #DM -A1c 6.9% -Pt on soft foods #HTN -Continue home Amlodipine 10mg PO daily #F/E/N -NS @ 100cc/hr -Electrolytes wnl #DVT prophylaxis: moderate risk due to neoplasm -OOB as tolerated -SCDs applied. No heparin given in anticipation of possible surgery #Dispo -Admit to Med/Surg -FULL Code Pharmacy was called. -Pantoparazole 40mg/Daily -Creon 24,000 units, 2 each TID -Z-pack on July 19 -Amlodipine 90mg -Nitroglycerine 0.4 -Diflanac gel 4g 4x daily -alrex eye drops 0.2% Visit type - Emergency Visit Emergency Visit: No - New Patient This patient is new to me today: No - Critical Care Critical Care patient: No
[2016-09-03] MEDS: amLODIPine BESYLATE 10 MG TABLET (FP) PO SCH (17:19)
--- NOTE | 2016-09-03 20:05 | PN ---
Teaching Attending Note Name of Resident: Marco Lopez ATTENDING PHYSICIAN STATEMENT I saw and evaluated the patient. I reviewed the resident's note and discussed the case with the resident. I agree with the resident's findings and plan as documented. SUBJECTIVE: patient is feeling better, no longer nauseas OBJECTIVE: Vital Signs Temperature 98.5 F 09/03/16 19:32 Pulse Rate 69 09/03/16 19:32 Respiratory Rate 20 09/03/16 19:32 Blood Pressure 136/65 09/03/16 19:32 O2 Sat by Pulse Oximetry (%) 99 09/02/16 21:00 CBCD WBC 4.8 K/mm3 (4.0-10.0) D 09/03/16 05:50 RBC 4.09 M/mm3 (3.60-5.2) 09/03/16 05:50 Hgb 11.4 GM/dL (10.7-15.3) 09/03/16 05:50 Hct 34.5 % (32.4-45.2) 09/03/16 05:50 MCV 84.4 fl (80-96) 09/03/16 05:50 MCHC 33.1 g/dl (32.0-36.0) 09/03/16 05:50 RDW 13.7 % (11.6-15.6) 09/03/16 05:50 Plt Count 152 K/MM3 (134-434) 09/03/16 05:50 MPV 7.3 fl (7.5-11.1) L 09/03/16 05:50 CMP Sodium 140 mmol/L (136-145) 09/03/16 05:50 Potassium 2.9 mmol/L (3.5-5.1) L* D 09/03/16 05:50 Chloride 105 mmol/L (98-107) 09/03/16 05:50 Carbon Dioxide 25 mmol/L (21-32) 09/03/16 05:50 Anion Gap 10 (8-16) 09/03/16 05:50 BUN 9 mg/dL (7-18) D 09/03/16 05:50 Creatinine 0.5 mg/dL (0.55-1.02) L 09/03/16 05:50 Creat Clearance w eGFR > 60 (>60) 09/03/16 05:50 Random Glucose 110 mg/dL (74-106) H D 09/03/16 05:50 Calcium 7.9 mg/dL (8.5-10.1) L 09/03/16 05:50 Total Bilirubin 0.5 mg/dL (0.2-1.0) D 09/03/16 05:50 AST 44 U/L (15-37) H D 09/03/16 05:50 ALT 96 U/L (12-78) H D 09/03/16 05:50 Alkaline Phosphatase 139 U/L (45-117) H D 09/03/16 05:50 Total Protein 6.1 g/dl (6.4-8.2) L 09/03/16 05:50 Albumin 2.9 g/dl (3.4-5.0) L D 09/03/16 05:50 Current Medications Generic Name Dose Route Start Last Admin Trade Name Freq PRN Reason Stop Dose Admin Amlodipine Besylate 10 mg 09/02/16 17:00 09/03/16 17:19 Norvasc - PO 10 mg DAILY@1700 ALVIN Administration Sodium Chloride 1,000 mls @ 100 mls/hr 09/02/16 00:15 09/03/16 06:21 Normal Saline - IV 100 mls/hr ASDIR ALVIN Administration Metronidazole 100 mls @ 100 mls/hr 09/02/16 18:00 09/03/16 17:19 Flagyl 500mg Premixed Ivpb - IVPB 100 mls/hr Q8H-IV ALVIN Administration Morphine Sulfate 1 mg 09/02/16 00:32 Morphine Injection - IVPUSH Q4H PRN PAIN Non-Formulary Medication 2 each 09/02/16 17:30 09/03/16 17:19 Lipase/Protease/Amylase [Rosa Sanches 24,000 Units Capsule] PO 2 each TIDCM ALVIN Administration Pantoprazole Sodium 40 mg 09/02/16 10:00 09/03/16 12:39 Protonix - PO 40 mg DAILY ALVIN Administration Piperacillin Sod/Tazobactam Sod 3.375 gm 09/02/16 18:00 09/03/16 17:26 Zosyn 3.375gm Ivpb (Pre-Docked) IVPB 3.375 gm Q8H-IV ALVIN Administration Protocol Potassium Chloride 20 meq 09/03/16 22:00 K-Dur - PO 09/04/16 22:00 BID [facility] Home Medications Medication Instructions Recorded Amlodipine Besylate [Norvasc -] 10 mg PO HS 11/23/15 Pantoprazole Sodium [Protonix] 40 mg PO DAILY 11/23/15 Tramadol HCl [Ultram] 50 mg PO Q8H #10 tablet MDD 3 tabs 11/24/15 Lipase/Protease/Amylase [Rosa Sanches 2 each PO TID 09/01/16 24,000 Units Capsule] PE: per resident's note ASSESSMENT AND PLAN: Patient is a 75 year old female with a PMHx of HTN, GERD, and Pancreatic cancer , Choledocholithiasis s/p CBD stent 09/2015 who presented with severe right sided upper quadrant pain associated with Nausea. CT revealed Cholecystitis and admitted for further monitoring and management. #Acute on Chronic Cholecystitis seen By GI and by Surgeon Hida scan was ordered , positive for cholecystitic with open stent, patient was offered surgery but wants to think for now. Getting IV Zosyn and was added Flagyl as per ID As per surgeon Dr. Fonseca may require perc drainage of gb if fevers do not improve on abx. As per , she was offered cholecystostomy but is undecided at this time # Acute hypokalemia repleted, will repeat the level. #Pancreatic Cancer Diagnosed February 2016 #HTN Continue current home medications #GERD Continue home medications DVT Px: SCds
[2016-09-03] MEDS: POTASSIUM CHLORIDE TABS 20 MEQ TABLET.ER (FP) PO SCH (21:15)
[2016-09-04] MEDS: METRONIDAZOLE 500 MG PREMIXED 100 ML IVPB SCH ×3 (01:12→17:34)
[2016-09-04] MEDS: PIPERACILLIN/TAZOB 3.375 GM/50 ML PRE-DOCKED IVPB SCH ×2 (02:50→09:27)
[2016-09-04 07:29] LABS: BASOPHIL 0.3 % (0-2.0); EOSINOPHIL 1.1 % (0-4.5); MCH 28.2 pg (25.7-33.7); MCHC 33.5 g/dl (32.0-36.0); MEAN CELL VOLUME 84.2 fl (80-96); MEAN PLT VOLUME 7.7 fl (7.5-11.1); NEUTROPHILS 68.2 % (42.8-82.8); PLATELET COUNT 179 K/MM3 (134-434); RDW 13.6 % (11.6-15.6); WHITE BLOOD COUNT 4.4 K/mm3 (4.0-10.0)
[2016-09-04 08:11] LABS: ANION GAP 10 (8-16); CALCIUM 7.9 mg/dL (8.5-10.1); CO2 28 mmol/L (21-32); CREATININE 0.5 mg/dL (0.55-1.02); GLUCOSE,RANDOM 113 mg/dL (74-106)
[2016-09-04] MEDS ORDERED: GLYCERIN 1 RECTAL SUPPOSITORY, ADULT RC ONE (08:45)
[2016-09-04] MEDS: PATIENT'S OWN MEDICATION (NON-FORMULARY) (Lipase/Protease/Amylase [Creon Dr 24,000 Units C PO SCH ×3 (09:16→16:31)
[2016-09-04] MEDS: SODIUM CHLORIDE 1,000 ML IV SCH (09:24)
[2016-09-04] MEDS: POTASSIUM CHLORIDE TABS 20 MEQ TABLET.ER (FP) PO SCH ×2 (09:25→22:12)
[2016-09-04] MEDS: HEPARIN NA (PORCINE) 5,000 UNITS/ML 1ML VIAL SQ SCH ×2 (09:26→22:11)
[2016-09-04 09:41] LABS: ALBUMIN 2.9 g/dl (3.4-5.0); ALK PHOS 122 U/L (45-117); ANION GAP 11 (8-16); BILIRUBIN,TOTAL 0.7 mg/dL (0.2-1.0); CALCIUM 7.9 mg/dL (8.5-10.1); CO2 26 mmol/L (21-32); CREATININE 0.5 mg/dL (0.55-1.02); GLUCOSE,RANDOM 110 mg/dL (74-106); SGOT/AST 26 U/L (15-37); SGPT/ALT 69 U/L (12-78); TOT PROT 6.2 g/dl (6.4-8.2)
[2016-09-04] MEDS ORDERED: PANTOPRAZOLE SODIUM 100 ML IVPB SCH (10:00)
[2016-09-04] MEDS ORDERED: POTASSIUM CHLORIDE TABS 20 MEQ TABLET.ER (FP) PO SCH (10:00)
--- NOTE | 2016-09-04 12:01 | EKG ---
Test Reason : Blood Pressure : / mmHG Vent. Rate : 067 BPM Atrial Rate : 067 BPM P-R Int : 230 ms QRS Dur : 076 ms QT Int : 544 ms P-R-T Axes : 039 016 028 degrees QTc Int : 574 ms SINUS RHYTHM WITH 1ST DEGREE A-V BLOCK NONSPECIFIC T WAVE ABNORMALITY ABNORMAL ECG WHEN COMPARED WITH ECG OF 23-NOV-2015 01:10, NONSPECIFIC T WAVE ABNORMALITY, WORSE IN INFERIOR LEADS NONSPECIFIC T WAVE ABNORMALITY, WORSE IN ANTEROLATERAL LEADS QT HAS LENGTHENED Confirmed by EDGARDO HATCH, SHIRLEY ([id number]) on 09/04/2016 12:01:39 PM Referred By: Confirmed By:SHIRLEY REYNOSO MD
[2016-09-04] MEDS: DOCUSATE SODIUM 100 MG CAPSULE (FP) PO SCH ×2 (13:46→22:12)
--- NOTE | 2016-09-04 14:03 | PN ---
Progress Note (short form) - Note Progress Note: awake and alert no abdominal pain hungry and wants to eat! she is upset about her diet lfts improved HIDA scan-acute cholyeystitis Vital Signs Period Temp Pulse Resp BP Sys/Copeland Pulse Ox Last 24 Hr 98.5 F-99.5 F 69-97 20-20 120-136/64-67 99-99 cor-rrr lungs clear abd soft,nt ext no edema CBC, BMP 09/04/16 06:20 09/04/16 06:20 lfts improved Microbiology 09/01/16 17:40 Blood - Peripheral Venous Blood Culture - Final Escherichia Coli 09/01/16 17:40 Blood - Peripheral Venous Blood Culture - Preliminary NO GROWTH OBTAINED AFTER 48 HOURS, INCUBATION TO CONTINUE FOR 3 DAYS. 09/01/16 20:35 Urine - Urine Clean Catch Urine Culture - Final NO GROWTH OBTAINED Current Medications Amlodipine Besylate (Norvasc -) 10 mg PO DAILY@1700 [facility] Last Admin: 09/03/16 17:19 Dose: 10 mg Docusate Sodium (Colace -) 100 mg PO BID [facility] Last Admin: 09/04/16 13:46 Dose: 100 mg Heparin Sodium (Porcine) (Heparin -) 5,000 unit SQ BID [facility] Last Admin: 09/04/16 09:26 Dose: Not Given Sodium Chloride (Normal Saline -) 1,000 mls @ 100 mls/hr IV ASDIR [facility] Last Admin: 09/04/16 09:24 Dose: 100 mls/hr Metronidazole (Flagyl 500mg Premixed Ivpb -) 100 mls @ 100 mls/hr IVPB Q8H-IV [facility] Last Admin: 09/04/16 10:59 Dose: 100 mls/hr Pantoprazole Sodium (Protonix 40mg Ivpb (Pre-Docked)) 100 mls @ 200 mls/hr IVPB DAILY [facility] Last Admin: 09/04/16 11:47 Dose: 200 mls/hr Morphine Sulfate (Morphine Injection -) 1 mg IVPUSH Q4H PRN PRN Reason: PAIN Non-Formulary Medication (Lipase/Protease/Amylase [Rosa Dr 24,000 Units Capsule ]) 2 each PO TIDCM [facility] Last Admin: 09/04/16 11:48 Dose: Not Given Piperacillin Sod/Tazobactam Sod (Zosyn 3.375gm Ivpb (Pre-Docked)) 3.375 gm IVPB Q8H-IV ALVIN PRN Reason: Protocol Last Admin: 09/04/16 09:27 Dose: 3.375 gm Potassium Chloride (K-Dur -) 40 meq PO BID ALVIN a/p E coli bacteremia acute cholecystitis pancreatic cancer will de-escalate antibiotics to rocephin/flagyl needs surgical f/u Problem List - Problems (1) Gram-negative bacteremia Code(s): R78.81 - BACTEREMIA (2) Biliary sepsis Code(s): K83.0 - CHOLANGITIS
[2016-09-04] MEDS ORDERED: CEFTRIAXONE 1 GM in DEXTROSE 5%-WATER - 100 ML IVPB SCH (14:15)
--- NOTE | 2016-09-04 16:05 | MSN ---
Progress Note (short form) - Note Progress Note: Subjective: Patient was seen by me at the bedside. patient was alert and oriented and able to answer questions. when question patient complained of new onset of pain that started last night. the pain is described as sharp dias that comes and goes. the pain is located in the right upper quadrant lateral to the region of gallbladder. The patient describes the pain as 10/10 over night but the pain is currently a 3/10. the patient believes the pain started after ingesting "acidic" fluids the previous day. The patient also complains of constipation and has not had a bowel moment in the last two days. The patient denies any other chest pain, SOB, nausea, vomiting, fever chills, or headache. Vital Signs Period Temp Pulse Resp BP Sys/Copeland Pulse Ox Last 24 Hr 97.9 F-99.5 F 67-97 20-20 120-136/64-67 99-99 Exam: Gen- alert and oriented in no acute distress Eyes- PEARLA, EOM intact, sclera anicteric and conjunctiva clear Neck- supple, no JVD, lymphadenopathy, or tracheal deviation Heart- RRR normal S1 and S1 with no murmurs rubs or gallops Lungs- clear to auscultation bilaterally in all lung bang with no wheezes, rales, or rhonchi Abdomen- no guarding, distention, or rebounding, nomroactive bowel sounds with tenderness to palpation only in the RUQ lateral to the gallbladder. Patient has a negative Villeda sign. SKin- [place] warm and dry with no jaundice Laboratory Results - last 24 hr 09/04/16 09/04/16 09/04/16 06:20 06:20 06:20 WBC 4.4 RBC 4.14 Hgb 11.7 Hct 34.8 MCV 84.2 MCH 28.2 MCHC 33.5 RDW 13.6 Plt Count 179 MPV 7.7 Neutrophils % 68.2 D Lymphocytes % 14.0 D Monocytes % 16.4 H D Eosinophils % 1.1 D Basophils % 0.3 Sodium 142 141 Potassium 3.0 L 2.9 L* Chloride 104 104 Carbon Dioxide 28 26 Anion Gap 10 11 BUN 8 7 Creatinine 0.5 L 0.5 L Creat Clearance w eGFR > 60 Random Glucose 113 H 110 H Calcium 7.9 L 7.9 L Total Bilirubin 0.7 D AST 26 D ALT 69 D Alkaline Phosphatase 122 H Total Protein 6.2 L Albumin 2.9 L 09/04/16 14:00 WBC RBC Hgb Hct MCV MCH MCHC RDW Plt Count MPV Neutrophils % Lymphocytes % Monocytes % Eosinophils % Basophils % Sodium Potassium 3.4 L Chloride Carbon Dioxide Anion Gap BUN Creatinine Creat Clearance w eGFR Random Glucose Calcium Total Bilirubin AST ALT Alkaline Phosphatase Total Protein Albumin Home Medications Medication Instructions Recorded Amlodipine Besylate [Norvasc -] 10 mg PO HS 11/23/15 Pantoprazole Sodium [Protonix] 40 mg PO DAILY 11/23/15 Tramadol HCl [Ultram] 50 mg PO Q8H #10 tablet MDD 3 tabs 11/24/15 Lipase/Protease/Amylase [Rosa Dr 2 each PO TID 09/01/16 24,000 Units Capsule] Imaging: Abdominal and Pelvic CT (09/02/16)- showed bulky soft tissue denstiy around pancreas and thickening of the gallbladder wall HIDA scan (09/03/16) - decreased perfusion to gallbladder consistanct with cystic duct obstruction Assessment and Plan: Patient is a 75 year old female with a past medical history of pancreatic cnacer , chronic cholecystitis, GERD, HTN who present to the ER with RUQ who was found to have an obstruction of the cystic duct. # cholecystitis secondary to cystic duct obstruction - blood cultures show growth of gram negative lactose fermenting alexandra. - as per DR. Hanna, antibiotics switched to ceftriaxone 1gm 50 mls @ 200 mls /hr IVB after 2 days of zosyn. Day 3 total of antibiotics. -will continue flagyl 500 mg at 100mls @ 100 mls/hr IVPB q8hr for anaerobic coverage. - conitue morphine 1mg IVPB q4hr PRN for pain - GI consulted, thought not to be candidate for surgery, will continue with cholecystostomy if patient desires. #Hypokalemia - improving - patient will not tolerate IV or fluid KCl - will increase K-Dur pills to 40 meq BID. Current value of 3.4 #GERD - continue protonix 40 mg PO daily #HTN - conitnue amlodipine 10mg PO daily F/E/N -Started on soft diet - NS @ 100 cc/hr DVT prophylaxis -SCD's applied
[2016-09-04] MEDS ORDERED: MAGNESIUM HYDROX 2400MG/30ML ORAL SUSPENSION 30 ML CUP PO PRN (16:55)
[2016-09-04] MEDS: amLODIPine BESYLATE 10 MG TABLET (FP) PO SCH (17:28)
[2016-09-04] MEDS ORDERED: MAG HYDROX/AL HYDROX/SIMETH 30 ML UNIT-DOSE CUP PO ONE ×2 (19:53→20:15)
--- NOTE | 2016-09-04 21:02 | PN ---
Teaching Attending Note Name of Resident: Marco Lopez ATTENDING PHYSICIAN STATEMENT I saw and evaluated the patient. I reviewed the resident's note and discussed the case with the resident. I agree with the resident's findings and plan as documented. SUBJECTIVE: abd pain has imporved , wants regular diet OBJECTIVE: NAD CV : RRR Lungs : CTAB ext : no edcema ABd: soft, minimal TTP in RUQ . edge of liver palpated in RUQ under costal margin. no rebound tenderness or guarding A/P 75 y/o lady with h/o pancreatic cancer , HTN , GERD , Choledocholithiasis s/p CBD stent 09/2015 who presneted with abd pain, was found to have acute cholecytitis 1- acute cholecystits with bacteremia : clinically improved . - repeat blood cx - cont Abx ( CTX and flagyl) - d/w her , declined percutaneous drainage - knows her prognosis and only wants Abx for this issue - advance diet , and decreae IVF iun AM 2-Hypokalemia , replete aggressively today. repeat tomorrow 3- pancreatic cancer , withincreased size of tumor on CT scan . f/u with her Oncologist 4- HTN , cont meds 5- GERD : PPI , switch to po
[2016-09-04] MEDS: SENNOSIDES 8.6MG TABLET (FP) PO SCH (22:13)
[2016-09-05] MEDS: METRONIDAZOLE 500 MG PREMIXED 100 ML IVPB SCH ×3 (01:12→17:44)
[2016-09-05] MEDS: SODIUM CHLORIDE 1,000 ML IV SCH (01:17)
--- NOTE | 2016-09-05 06:30 | PN ---
Physical Exam: SUBJECTIVE: Patient seen and examined at bedside. no acute events overnight. Pt has no complaints at this time. Pt denies headache, cp, sob, abd pain, nausea, vomiting, diarrhea, dysuria, fever. OBJECTIVE: Vital Signs Period Temp Pulse Resp BP Sys/Copeland Pulse Ox Last 24 Hr 97.9 F-99.1 F 67-97 20-20 109-128/55-67 99-99 GENERAL: The patient is awake, alert, and fully oriented, in no acute distress. HEAD: Normal with no signs of trauma. EYES: PERRL, extraocular movements intact, sclera anicteric, conjunctiva clear. No ptosis. ENT: Ears normal, nares patent, oropharynx clear without exudates, moist mucous membranes. NECK: Trachea midline, full range of motion, supple. LUNGS: Breath sounds equal, clear to auscultation bilaterally, no wheezes, no crackles, no accessory muscle use. HEART: Regular rate and rhythm, S1, S2 without murmur, rub or gallop. ABDOMEN: Soft, nontender, nondistended, normoactive bowel sounds, no guarding, no rebound, hepatomegally, no masses. EXTREMITIES: 2+ pulses, warm, well-perfused, no edema. NEUROLOGICAL: Cranial nerves II through XII grossly intact. Normal speech, gait not observed. PSYCH: Normal mood, normal affect. SKIN: Warm, dry, normal turgor, no rashes or lesions noted Laboratory Results - last 24 hr 09/04/16 09/04/16 09/04/16 06:20 06:20 06:20 WBC 4.4 RBC 4.14 Hgb 11.7 Hct 34.8 MCV 84.2 MCH 28.2 MCHC 33.5 RDW 13.6 Plt Count 179 MPV 7.7 Neutrophils % 68.2 D Lymphocytes % 14.0 D Monocytes % 16.4 H D Eosinophils % 1.1 D Basophils % 0.3 Sodium 142 141 Potassium 3.0 L 2.9 L* Chloride 104 104 Carbon Dioxide 28 26 Anion Gap 10 11 BUN 8 7 Creatinine 0.5 L 0.5 L Creat Clearance w eGFR > 60 Random Glucose 113 H 110 H Calcium 7.9 L 7.9 L Total Bilirubin 0.7 D AST 26 D ALT 69 D Alkaline Phosphatase 122 H Total Protein 6.2 L Albumin 2.9 L 09/04/16 14:00 WBC RBC Hgb Hct MCV MCH MCHC RDW Plt Count MPV Neutrophils % Lymphocytes % Monocytes % Eosinophils % Basophils % Sodium Potassium 3.4 L Chloride Carbon Dioxide Anion Gap BUN Creatinine Creat Clearance w eGFR Random Glucose Calcium Total Bilirubin AST ALT Alkaline Phosphatase Total Protein Albumin Active Medications Generic Name Dose Route Start Last Admin Trade Name Freq PRN Reason Stop Dose Admin Amlodipine Besylate 10 mg 09/02/16 17:00 09/04/16 17:28 Norvasc - PO 10 mg DAILY@1700 ALVIN Administration Docusate Sodium 100 mg 09/04/16 12:45 09/04/16 22:12 Colace - PO Not Given BID ALVIN Heparin Sodium (Porcine) 5,000 unit 09/04/16 10:00 09/04/16 22:11 Heparin - SQ Not Given BID ALVIN Sodium Chloride 1,000 mls @ 100 mls/hr 09/02/16 00:15 09/05/16 01:17 Normal Saline - IV 100 mls/hr ASDIR ALVIN Administration Metronidazole 100 mls @ 100 mls/hr 09/02/16 18:00 09/05/16 01:12 Flagyl 500mg Premixed Ivpb - IVPB 100 mls/hr Q8H-IV ALVIN Administration Ceftriaxone Sodium 50 mls @ 200 mls/hr 09/04/16 14:15 Rocephin 1gm Ivpb (Pre-Docked) IVPB DAILY ALVIN Magnesium Hydroxide 30 ml 09/04/16 16:55 09/04/16 17:27 Milk Of Magnesia - PO 30 ml DAILY PRN Administration CONSTIPATION Morphine Sulfate 1 mg 09/02/16 00:32 Morphine Injection - IVPUSH Q4H PRN PAIN Non-Formulary Medication 2 each 09/02/16 17:30 09/04/16 16:31 Lipase/Protease/Amylase [Creon Dr 24,000 Units Capsule] PO Not Given TIDCM ALVIN Pantoprazole Sodium 40 mg 09/05/16 10:00 Protonix - PO DAILY ALVIN Potassium Chloride 40 meq 09/04/16 22:00 09/04/16 22:12 K-Dur - PO 09/05/16 23:59 40 meq BID ALVIN Administration Senna 2 tab 09/04/16 22:00 09/04/16 22:13 Senna - PO Not Given HS ALVIN ASSESSMENT/PLAN: 75yo woman with PMH of pancreatic Ca (dx 7mo ago, treatment not initiated), chronic cholecystitis s/p ERCP and CBD stent (Sep 2015), GERD, and HTN who is here for RUQ pain likely due to acute cholecystitis. #Acute cholecystitis 2/2 cholelithiasis -Blood Cx shows E. coli in anaerobic bottle -Urine Cx shows no growth. -Repeat Blood Cx show no growth day 4 -HIDA scan today suggestive of cystic duct obstruction -Surgery consult (Dr. Shell): will f/u recommendations -GI consult (Dr. Ortiz): appreciate recommendations -patient refused to have any procedure done -decreased IVF -ID on board (Dr. Hanna), will likely switch to PO abx -Zosyn 3.375gm IVPB Q8H -Metronidazole 500mg IVPB Q8H for anaerobic coverage -Morphine 1mg IVPB Q4H PRN for pain control #hypokalemia -K-dur 40meq PO #GERD -Continue home pantoprazole 40mg PO daily #Pancreatic Cancer -pt refusing pancreatic enzymes #DM -A1c 6.9% -Pt on soft foods #HTN -Continue home Amlodipine 10mg PO daily #F/E/N -NS @ 100cc/hr -Electrolytes wnl #DVT prophylaxis: moderate risk due to neoplasm -OOB as tolerated -SCDs applied. No heparin given in anticipation of possible surgery #Dispo -Admit to Med/Surg -FULL Code Visit type - Emergency Visit Emergency Visit: No - New Patient This patient is new to me today: No - Critical Care Critical Care patient: No
[2016-09-05 07:28] LABS: BASOPHIL 0.3 % (0-2.0); EOSINOPHIL 2.5 % (0-4.5); MCH 28.1 pg (25.7-33.7); MCHC 33.7 g/dl (32.0-36.0); MEAN CELL VOLUME 83.3 fl (80-96); MEAN PLT VOLUME 7.7 fl (7.5-11.1); NEUTROPHILS 69.1 % (42.8-82.8); PLATELET COUNT 189 K/MM3 (134-434); RDW 13.6 % (11.6-15.6); WHITE BLOOD COUNT 4.1 K/mm3 (4.0-10.0)
[2016-09-05 07:47] LABS: ANION GAP 8 (8-16); CALCIUM 8.2 mg/dL (8.5-10.1); CO2 27 mmol/L (21-32); CREATININE 0.5 mg/dL (0.55-1.02); GLUCOSE,RANDOM 127 mg/dL (74-106)
[2016-09-05] MEDS: PATIENT'S OWN MEDICATION (NON-FORMULARY) (Lipase/Protease/Amylase [Creon Dr 24,000 Units C PO SCH ×3 (08:21→16:46)
[2016-09-05] MEDS: PANTOPRAZOLE 40 MG TABLET (FP) PO SCH ×2 (08:36→10:07)
[2016-09-05] MEDS: DOCUSATE SODIUM 100 MG CAPSULE (FP) PO SCH ×2 (10:02→21:03)
[2016-09-05] MEDS: HEPARIN NA (PORCINE) 5,000 UNITS/ML 1ML VIAL SQ SCH ×2 (10:07→21:03)
[2016-09-05] MEDS: CEFTRIAXONE 50 ML IVPB SCH (10:16)
[2016-09-05] MEDS: POTASSIUM CHLORIDE TABS 20 MEQ TABLET.ER (FP) PO SCH (10:17)
[2016-09-05 11:06] LABS: ALK PHOS 110 U/L (45-117); BILIRUBIN,DIRECT 0.1 mg/dL (0.0-0.2); BILIRUBIN,TOTAL 0.7 mg/dL (0.2-1.0); SGOT/AST 31 U/L (15-37); SGPT/ALT 59 U/L (12-78); TOT PROT 6.1 g/dl (6.4-8.2)
[2016-09-05] MEDS ORDERED: POTASSIUM CHLORIDE TABS 20 MEQ TABLET.ER (FP) PO STA (14:50)
--- NOTE | 2016-09-05 15:27 | MSN ---
Progress Note (short form) - Note Progress Note: Subjective: Patient was seen by me at the bedside. Patient stated feeling "much better" today. Patient feels as though she is having complete resolution of of her previous RUQ pain. Patient stated that she had a firm bowel moment earlier in the day and that she is no longer feeling constipated. Patient is also urinating regularly. Patient also denies any chest pain, SOB, fever, chills, headache, numbness, tingling, weakness, dizziness, abdominal pain, or diarrhea. Vital Signs Period Temp Pulse Resp BP Sys/Copeland Pulse Ox Last 24 Hr 98.3 F-98.9 F 70-81 18-20 109-128/55-71 98-99 Exam: General: Patient is a middle aged female sitting comfortable in the bed, she is alert and oriented in no distress, appears stated age. Eyes: PEARLA, EOM intact, sclera anecteric, and conjunctiva clear Heart: RRR, normal S1 and S2, no murmurs, rubs, or gallops Lungs: Clear to auscultation bilaterally in all lung bang with no wheezes , rales or rhonchi Abdomen: no guarding, distention, or rebounding, hard liver mass palpated in the RUQ that is not painful, normoactive bowel sounds, and no tenderness to palpation in any of the four quadrants. Extremities: 5/5 muscle strength and 2/4 pulses with intact sensation in all extremities with no swelling noted in the lower extremities Skin- Warm, [place], and dry Laboratory Results - last 24 hr 09/05/16 09/05/16 09/05/16 06:20 06:20 08:29 WBC 4.1 RBC 4.09 Hgb 11.5 Hct 34.0 MCV 83.3 MCH 28.1 MCHC 33.7 RDW 13.6 Plt Count 189 MPV 7.7 Neutrophils % 69.1 Lymphocytes % 13.4 Monocytes % 14.7 H Eosinophils % 2.5 D Basophils % 0.3 Sodium 143 Potassium 3.4 L Chloride 108 H Carbon Dioxide 27 Anion Gap 8 BUN 8 Creatinine 0.5 L Random Glucose 127 H Calcium 8.2 L Total Bilirubin 0.7 Cancelled Direct Bilirubin 0.1 D Cancelled AST 31 Cancelled ALT 59 Cancelled Alkaline Phosphatase 110 Cancelled Total Protein 6.1 L Cancelled Albumin 3.0 L Cancelled Current Medications Generic Name Dose Route Start Last Admin Trade Name Freq PRN Reason Stop Dose Admin Amlodipine Besylate 10 mg 09/02/16 17:00 09/04/16 17:28 Norvasc - PO 10 mg DAILY@1700 ALVIN Administration Docusate Sodium 100 mg 09/04/16 12:45 09/05/16 10:02 Colace - PO Not Given BID ALVIN Heparin Sodium (Porcine) 5,000 unit 09/04/16 10:00 09/05/16 10:07 Heparin - SQ Not Given BID ALVIN Sodium Chloride 1,000 mls @ 100 mls/hr 09/02/16 00:15 09/05/16 01:17 Normal Saline - IV 100 mls/hr ASDIR ALVIN Administration Metronidazole 100 mls @ 100 mls/hr 09/02/16 18:00 09/05/16 11:47 Flagyl 500mg Premixed Ivpb - IVPB 100 mls/hr Q8H-IV ALVIN Administration Ceftriaxone Sodium 50 mls @ 200 mls/hr 09/04/16 14:15 09/05/16 10:16 Rocephin 1gm Ivpb (Pre-Docked) IVPB 200 mls/hr DAILY ALVIN Administration Magnesium Hydroxide 30 ml 09/04/16 16:55 09/04/16 17:27 Milk Of Magnesia - PO 30 ml DAILY PRN Administration CONSTIPATION Morphine Sulfate 1 mg 09/02/16 00:32 Morphine Injection - IVPUSH Q4H PRN PAIN Non-Formulary Medication 2 each 09/02/16 17:30 09/05/16 11:47 Lipase/Protease/Amylase [Rosa Sanches 24,000 Units Capsule] PO Not Given TIDCM ALVIN Pantoprazole Sodium 40 mg 09/05/16 10:00 09/05/16 10:07 Protonix - PO Not Given DAILY ALVIN Potassium Chloride 40 meq 09/05/16 14:50 K-Dur - PO 09/05/16 14:51 ONCE STA Senna 2 tab 09/04/16 22:00 09/04/16 22:13 Senna - PO Not Given HS ALVIN Imaging: Abdominal and Pelvic CT (09/02/16)- showed bulky soft tissue density around pancreas and thickening of the gallbladder wall HIDA scan (09/03/16) - decreased perfusion to gallbladder consistent with cystic duct obstruction Assessment and Plan: Patient is a 75 year old female with a past medical history of pancreatic cancer , chronic cholecystitis, GERD, HTN who present to the ER with RUQ who was found to have an obstruction of the cystic duct. # cholecystitis secondary to cystic duct obstruction - blood cultures show growth of gram negative lactose fermenting alexandra second blood culture still pending - awaiting blood culture result to adjust antibiotic accordingly for D/C - as per DR. Hanna, antibiotics switched to ceftriaxone 1gm 50 mls @ 200 mls /hr IVB after 2 days of zosyn. Day 4 of total of antibiotics. - will continue flagyl 500 mg at 100mls @ 100 mls/hr IVPB q8hr for anaerobic coverage. - continue morphine 1mg IVPB q4hr PRN for pain - GI consulted, thought not to be candidate for surgery, will not continue with cholecystostomy. #Hypokalemia - improving at a level of 3.4 - patient will not tolerate IV or fluid KCl - will give K-Dur pill 40 meq one time today and then discontinue. - will continue to monitor tomorrow #GERD - continue protonix 40 mg PO daily #HTN - continue amlodipine 10mg PO daily F/E/N -Started on soft diet - NS @ 100 cc/hr DVT prophylaxis -SCD's applied Disp: -Discharge on oral antibiotics once results of second blood culture comeback
--- NOTE | 2016-09-05 17:09 | PN ---
Progress Note (short form) - Note Progress Note: awake and alert Vital Signs Period Temp Pulse Resp BP Sys/Copeland Pulse Ox Last 24 Hr 98.3 F-98.9 F 70-81 18-20 109-128/55-71 98-99 cor-rrr lungs clear abd soft,mild RUQ discomfort on deep palpation ext no edema \ CBC, BMP 09/05/16 06:20 09/05/16 06:20 Microbiology 09/04/16 13:40 Blood - Peripheral Venous Blood Culture - Preliminary NO GROWTH OBTAINED AFTER 24 HOURS, INCUBATION TO CONTINUE FOR 4 DAYS. 09/04/16 13:40 Blood - Peripheral Venous Blood Culture - Preliminary NO GROWTH OBTAINED AFTER 24 HOURS, INCUBATION TO CONTINUE FOR 4 DAYS. 09/01/16 17:40 Blood - Peripheral Venous Blood Culture - Preliminary NO GROWTH OBTAINED AFTER 72 HOURS, INCUBATION TO CONTINUE FOR 2 DAYS. 09/01/16 17:40 Blood - Peripheral Venous Blood Culture - Final Escherichia Coli 09/01/16 20:35 Urine - Urine Clean Catch Urine Culture - Final NO GROWTH OBTAINED Current Medications Amlodipine Besylate (Norvasc -) 10 mg PO DAILY@1700 [facility] Last Admin: 09/04/16 17:28 Dose: 10 mg Docusate Sodium (Colace -) 100 mg PO BID [facility] Last Admin: 09/05/16 10:02 Dose: Not Given Heparin Sodium (Porcine) (Heparin -) 5,000 unit SQ BID [facility] Last Admin: 09/05/16 10:07 Dose: Not Given Sodium Chloride (Normal Saline -) 1,000 mls @ 100 mls/hr IV ASDIR [facility] Last Admin: 09/05/16 01:17 Dose: 100 mls/hr Metronidazole (Flagyl 500mg Premixed Ivpb -) 100 mls @ 100 mls/hr IVPB Q8H-IV [facility] Last Admin: 09/05/16 11:47 Dose: 100 mls/hr Ceftriaxone Sodium (Rocephin 1gm Ivpb (Pre-Docked)) 50 mls @ 200 mls/hr IVPB DAILY [facility] Last Admin: 09/05/16 10:16 Dose: 200 mls/hr Magnesium Hydroxide (Milk Of Magnesia -) 30 ml PO DAILY PRN PRN Reason: CONSTIPATION Last Admin: 09/04/16 17:27 Dose: 30 ml Morphine Sulfate (Morphine Injection -) 1 mg IVPUSH Q4H PRN PRN Reason: PAIN Non-Formulary Medication (Lipase/Protease/Amylase [Rosa Sanches 24,000 Units Capsule ]) 2 each PO TIDCM [facility] Last Admin: 09/05/16 16:46 Dose: Not Given Pantoprazole Sodium (Protonix -) 40 mg PO DAILY [facility] Last Admin: 09/05/16 10:07 Dose: Not Given Senna (Senna -) 2 tab PO HS [facility] Last Admin: 09/04/16 22:13 Dose: Not Given a/p E coli bacteremia acute cholecystitis pancreatic cancer refusing surgery and cholycystotomy tube at this time d/w patient and risk for recurrent sepsis as the source of infection has not been removed or drained she wishes to discuss further management with her doctors at [facility] would treat for total 14 days from 09/04- can switch to po levaquin/flagyl at discharge d/w Dr Richards at length- the medical team will speak with her community arts worker at [place] please call back if needed Problem List - Problems (1) Gram-negative bacteremia Code(s): R78.81 - BACTEREMIA (2) Biliary sepsis Code(s): K83.0 - CHOLANGITIS
[2016-09-05] MEDS: amLODIPine BESYLATE 10 MG TABLET (FP) PO SCH (17:44)
--- NOTE | 2016-09-05 18:14 | PN ---
Teaching Attending Note Name of Resident: Marco Lopez ATTENDING PHYSICIAN STATEMENT I saw and evaluated the patient. I reviewed the resident's note and discussed the case with the resident. I agree with the resident's findings and plan as documented. SUBJECTIVE: no fever or chills. has no abd pain . has no diarrhea . denies any N/V OBJECTIVE: AD CV : RRR Lungs : CTAB ext : no edcema ABd: soft, No TTP in RUQ . edge of liver palpated in RUQ under costal margin. no rebound tenderness or guarding A/P 75 y/o lady with h/o pancreatic cancer , HTN , GERD , Choledocholithiasis s/p CBD stent 09/2015 who presneted with abd pain, was found to have acute cholecytitis 1- Acute cholecystits with bacteremia : clinically much improved. discussed with her again that without treating the source of infection ( CCY or percutaneous drainage ) , she will be at risk of recurrent sepsis. She understands that , and only wants abx and to follow with her GI at [facility] - cont CTX and flagyl - d/W Dr. Hanna, will probably do oral abx tomorrow for a total of 14 days form last fever ( 09/03 ) - will try to reach out to her GI tomorrow for update on her case - decrease IVF . can stop tomorrow 2-Hypokalemia , replete 3- pancreatic cancer , with increased size of tumor on CT scan . f/u with her Oncologist poor prognosis declines pancreatic enzymes 4- HTN , cont meds 5- GERD : PPI possible dc tomorrow
--- NOTE | 2016-09-05 19:30 | PN ---
GI Progress Note Subjective: patient clinically improved. Patient with pancreatic cancer who opted for conservative management resulting in biliary stent insertion. LFTS near normal - Objective Vital Signs: Vital Signs Temperature 98.3 F 09/05/16 14:27 Pulse Rate 78 09/05/16 14:27 Respiratory Rate 18 09/05/16 14:27 Blood Pressure 126/71 09/05/16 14:27 O2 Sat by Pulse Oximetry (%) 98 09/05/16 09:00 Constitutional: Well Nourished Eyes: Yes: Conjunctiva Clear HENT: Yes: Atraumatic Neck: Yes: Supple Cardiovascular: Yes: Regular Rate and Rhythm Respiratory: Yes: CTA Bilaterally ...Palpate: Yes: Soft, Tenderness (--mild markedly improved since admission). No: Firm/Rigid, Guarding, Hepatomegaly, Mass, Pulsatile Mass, Splenomegaly Labs: CBC, BMP 09/05/16 06:20 09/05/16 06:20 INR, PTT INR 1.20 (0.82-1.09) H 09/03/16 05:50 Problem List - Problems (1) Cholecystitis Assessment/Plan: Acute cholecystitis is resolving as evidenced by continued clinical improvement , being afebrile and near normal labs. Patient has poor prognosis because of pancreartic cancer that has not undergone resection nor palliative treatment. Because of this conservative management might be her best option. I agree with oral antibiotics as an outpaient. If same symptoms recurs then she would consider percutaneous drainage. Code(s): K81.9 - CHOLECYSTITIS, UNSPECIFIED
[2016-09-05] MEDS ORDERED: POTASSIUM CHLORIDE TABS 20 MEQ TABLET.ER (FP) PO ONE (20:16)
[2016-09-05] MEDS: SENNOSIDES 8.6MG TABLET (FP) PO SCH (21:04)
[2016-09-06] MEDS: METRONIDAZOLE 500 MG PREMIXED 100 ML IVPB SCH ×2 (01:57→09:42)
[2016-09-06] MEDS ORDERED: PANTOPRAZOLE 40 MG TABLET (FP) PO SCH (07:00)
[2016-09-06] MEDS: PATIENT'S OWN MEDICATION (NON-FORMULARY) (Lipase/Protease/Amylase [Creon Dr 24,000 Units C PO SCH ×2 (08:00→11:32)
[2016-09-06 08:03] LABS: BASOPHIL 0.3 % (0-2.0); EOSINOPHIL 1.6 % (0-4.5); MCH 28.3 pg (25.7-33.7); MCHC 33.6 g/dl (32.0-36.0); MEAN CELL VOLUME 84.1 fl (80-96); MEAN PLT VOLUME 7.8 fl (7.5-11.1); NEUTROPHILS 74.9 % (42.8-82.8); PLATELET COUNT 225 K/MM3 (134-434); RDW 13.8 % (11.6-15.6); WHITE BLOOD COUNT 4.6 K/mm3 (4.0-10.0)
[2016-09-06 08:35] LABS: ANION GAP 6 (8-16); CALCIUM 8.8 mg/dL (8.5-10.1); CO2 28 mmol/L (21-32); CREATININE 0.6 mg/dL (0.55-1.02); GLUCOSE,RANDOM 137 mg/dL (74-106)
[2016-09-06] MEDS: DOCUSATE SODIUM 100 MG CAPSULE (FP) PO SCH (09:41)
[2016-09-06] MEDS: HEPARIN NA (PORCINE) 5,000 UNITS/ML 1ML VIAL SQ SCH (09:41)
[2016-09-06] MEDS: CEFTRIAXONE 50 ML IVPB SCH (09:42)
[2016-09-06] MEDS: amLODIPine BESYLATE 10 MG TABLET (FP) PO SCH (13:17)
[2016-09-06 14:43] VITALS: BP 143/87; PULSE 90; TEMP 98.2
--- NOTE | 2016-09-06 15:34 | DS ---
Physical Exam: SUBJECTIVE: Patient seen and examined at bedside. No acute events overnight. Pt has no new complaints at this time. Pt denies headache, chest pain, sob, abd pain, nausea, vomiting, dysuria, fever, chills. OBJECTIVE: Vital Signs Period Temp Pulse Resp BP Sys/Copeland Pulse Ox Last 24 Hr 98.1 F-99.9 F 75-90 18-20 134-150/66-96 96-97 PHYSICAL EXAM GENERAL: The patient is awake, alert, and fully oriented, in no acute distress. HEAD: Normal with no signs of trauma. EYES: extraocular movements intact, sclera anicteric, conjunctiva clear. ENT: oropharynx clear without exudates, moist mucous membranes. NECK: Trachea midline, full range of motion, supple. LUNGS: Breath sounds equal, clear to auscultation bilaterally, no wheezes, no crackles, no accessory muscle use. HEART: Regular rate and rhythm, normal S1, S2 without murmur, rub or gallop. ABDOMEN: hepatomegally. Soft, nontender, nondistended, normoactive bowel sounds , no guarding, no rebound, no masses. EXTREMITIES: 2+ pulses, warm, well-perfused, no edema. NEUROLOGICAL: Cranial nerves II through XII grossly intact. Normal speech, gait not observed. PSYCH: Normal mood, normal affect. SKIN: Warm, dry, normal turgor, no rashes or lesions noted. LABS Laboratory Results - last 24 hr 09/06/16 09/06/16 06:38 06:38 WBC 4.6 RBC 4.30 Hgb 12.1 Hct 36.2 MCV 84.1 MCH 28.3 MCHC 33.6 RDW 13.8 Plt Count 225 MPV 7.8 Neutrophils % 74.9 Lymphocytes % 11.0 Monocytes % 12.2 H Eosinophils % 1.6 Basophils % 0.3 Sodium 137 Potassium 3.7 Chloride 103 Carbon Dioxide 28 Anion Gap 6 L BUN 10 D Creatinine 0.6 Random Glucose 137 H Calcium 8.8 HOSPITAL COURSE: Date of Admission:09/01/16 Date of Discharge: 09/06/16 75yo woman with PMH of pancreatic Ca (dx 7mo ago, treatment not initiated), chronic cholecystitis s/p ERCP and CBD stent (Sep 2015), GERD, and HTN who is here for RUQ pain likely due to acute cholecystitis. The patient was admitted and treated for acute cholecystitis secondary to cholelithiasis. Blood cultures were positive for E. coli, initially. Infectious diseases was consulted, and the patient was given IV antibiotics (Zosyn, Metronidazole). Repeat cultures revealed no growth. Urine cultures were negative. Surgery and GI were consulted. A HIDA scan was performed, which suggested cystic duct obstruction, though there was a possibility of false positive (per surgery note). The patient refused cholecystectomy and cholecystostomy. During her stay, the patient developed hypokalemia, which was corrected with K-dur. Her GERD was treated with pantoprazole. A new diagnosis of diabetes mellitus was made by a HbA1c of 6.9%. The patient's diabetes was controlled with diet. Her hypertention was managed with home medications (Amlodipine). At this time the patient is stable for discharge home. Minutes to complete discharge: 45 Discharge Summary Reason For Visit: CHOLECYSTITIS/ELEVATED LIVER FUNCTION/HYPERBILIRUB Current Active Problems Biliary sepsis (Acute) Cholecystitis (Acute) Gram-negative bacteremia (Acute) Hyperbilirubinemia (Acute) LFT elevation (Acute) - Instructions Referrals: Tisha Hanna MD [Staff Physician] - Jeb Shell MD [Staff Physician] - - Home Medications Comprehensive Discharge Medication List: Ambulatory Orders Amlodipine Besylate [Norvasc -] 10 mg PO HS 11/23/15 Pantoprazole Sodium [Protonix] 40 mg PO DAILY 11/23/15 Tramadol HCl [Ultram] 50 mg PO Q8H #10 tablet MDD 3 tabs 11/24/15 Lipase/Protease/Amylase [Rosa Sanches 24,000 Units Capsule] 2 each PO TID 09/01/16
--- NOTE | 2016-09-06 16:09 | DS ---
Physical Exam: SUBJECTIVE: Patient seen and examined at bedside. No acute events overnight. Pt has no new complaints at this time. Pt denies headache, chest pain, sob, abd pain, nausea, vomiting, dysuria, fever, chills. OBJECTIVE: Vital Signs Period Temp Pulse Resp BP Sys/[place] Pulse Ox Last 24 Hr 98.1 F-99.9 F 75-90 18-20 134-150/66-96 96-97 PHYSICAL EXAM GENERAL: The patient is awake, alert, and fully oriented, in no acute distress. HEAD: Normal with no signs of trauma. EYES: extraocular movements intact, sclera anicteric, conjunctiva clear. ENT: oropharynx clear without exudates, moist mucous membranes. NECK: Trachea midline, full range of motion, supple. LUNGS: Breath sounds equal, clear to auscultation bilaterally, no wheezes, no crackles, no accessory muscle use. HEART: Regular rate and rhythm, normal S1, S2 without murmur, rub or gallop. ABDOMEN: hepatomegally. Soft, nontender, nondistended, normoactive bowel sounds , no guarding, no rebound, no masses. EXTREMITIES: 2+ pulses, warm, well-perfused, no edema. NEUROLOGICAL: Cranial nerves II through XII grossly intact. Normal speech, gait not observed. PSYCH: Normal mood, normal affect. SKIN: Warm, dry, normal turgor, no rashes or lesions noted. LABS Laboratory Results - last 24 hr 09/06/16 09/06/16 06:38 06:38 WBC 4.6 RBC 4.30 Hgb 12.1 Hct 36.2 MCV 84.1 MCH 28.3 MCHC 33.6 RDW 13.8 Plt Count 225 MPV 7.8 Neutrophils % 74.9 Lymphocytes % 11.0 Monocytes % 12.2 H Eosinophils % 1.6 Basophils % 0.3 Sodium 137 Potassium 3.7 Chloride 103 Carbon Dioxide 28 Anion Gap 6 L BUN 10 D Creatinine 0.6 Random Glucose 137 H Calcium 8.8 Microbiology 09/04/16 13:40 Blood - Peripheral Venous Blood Culture - Preliminary NO GROWTH OBTAINED AFTER 48 HOURS, INCUBATION TO CONTINUE FOR 3 DAYS. 09/04/16 13:40 Blood - Peripheral Venous Blood Culture - Preliminary NO GROWTH OBTAINED AFTER 48 HOURS, INCUBATION TO CONTINUE FOR 3 DAYS. 09/01/16 17:40 Blood - Peripheral Venous Blood Culture - Preliminary NO GROWTH OBTAINED AFTER 96 HOURS, INCUBATION TO CONTINUE FOR 1 DAYS. 09/01/16 17:40 Blood - Peripheral Venous Blood Culture - Final Escherichia Coli 09/01/16 20:35 Urine - Urine Clean Catch Urine Culture - Final NO GROWTH OBTAINED HOSPITAL COURSE: Date of Admission:09/01/16 Date of Discharge: 09/06/16 75yo woman with PMH of pancreatic Ca (dx 7mo ago, treatment not initiated), chronic cholecystitis s/p ERCP and CBD stent (Sep 2015), GERD, and HTN who is here for RUQ pain due to acute cholecystitis. The patient was admitted and treated for acute cholecystitis secondary to cholelithiasis. Blood cultures were positive for E. coli, initially. Infectious diseases was consulted, and the patient was given IV antibiotics (Zosyn, Metronidazole). Repeat cultures revealed no growth. Urine cultures were negative. Surgery and GI were consulted. A HIDA scan was performed, which suggested cystic duct obstruction, though there was a possibility of false positive (per surgery note). The patient refused cholecystectomy and cholecystostomy. During her stay, the patient developed hypokalemia, which was corrected with K-dur. Her GERD was treated with pantoprazole. A new diagnosis of diabetes mellitus was made by a HbA1c of 6.9%. The patient's diabetes was controlled with diet. Her hypertention was managed with home medications (Amlodipine). At this time the patient is stable for discharge home. Amlodipine Besylate [Norvasc -] 10 mg PO HS 11/23/15 Pantoprazole Sodium [Protonix] 40 mg PO DAILY 11/23/15 Tramadol HCl [Ultram] 50 mg PO Q8H #10 tablet MDD 3 tabs 11/24/15 Lipase/Protease/Amylase [Creon Dr 24,000 Units Capsule] 2 each PO TID 09/01/16 Levofloxacin [Levaquin] 500 mg PO DAILY #12 tablet 09/06/16 Metronidazole [Flagyl -] 500 mg PO TID #36 tablet 09/06/16 Minutes to complete discharge: 45 Discharge Summary Reason For Visit: CHOLECYSTITIS/ELEVATED LIVER FUNCTION/HYPERBILIRUB Current Active Problems Biliary sepsis (Acute) Cholecystitis (Acute) Gram-negative bacteremia (Acute) Hyperbilirubinemia (Acute) LFT elevation (Acute) Condition: Good - Instructions Diet, Activity, Other Instructions: You were admitted to the hospital for the treatment of acute cholecystits, which is the inflammation of the gall bladder. You were seen be the infectious diseases team, the surgical team, and the GI team, in addition to your internal medicine doctors. You had a HIDA scan, which is a nuclear gall bladder scan. It showed that you may have an obstruction of the gall bladder. This may be a source for infection. You stated that you were not interested in pursuing surgical treatment options. You were treated with antibiotics and fluids, and your current infection improved greatly. There is a possibility that you will develop another similar infection since your gallbladder was not removed. You are being sent home with: Levaquin 500mg by mouth every day Flagyl 500mg by mouth in the morning, at noon, and at night Your prescriptions were sent to [facility]. You have an appointment with Dr. Hanna in 1 week You have an appointment with Dr. Shell in 1 week It is very important that you take your medications as directed and that you follow up with your outpatient doctors. Please return to the Emergency Department if your symptoms worsen or if you experience new symptoms. Referrals: Tisha Hanna MD [Staff Physician] - 1 Week Jeb Shell MD [Staff Physician] - 1 Week Disposition: HOME - Home Medications Comprehensive Discharge Medication List: Ambulatory Orders Amlodipine Besylate [Norvasc -] 10 mg PO HS 11/23/15 Pantoprazole Sodium [Protonix] 40 mg PO DAILY 11/23/15 Tramadol HCl [Ultram] 50 mg PO Q8H #10 tablet MDD 3 tabs 11/24/15 Lipase/Protease/Amylase [Rosa Sanches 24,000 Units Capsule] 2 each PO TID 09/01/16 Levofloxacin [Levaquin] 500 mg PO DAILY #12 tablet 09/06/16 Metronidazole [Flagyl -] 500 mg PO TID #36 tablet 09/06/16 This patient is new to me today: No Emergency Visit: No Critical Care patient: No - Discharge Referral Referred to [facility] No
--- NOTE | 2016-09-06 19:03 | PN ---
Teaching Attending Note Name of Resident: Marco Lopez ATTENDING PHYSICIAN STATEMENT I saw and evaluated the patient. I reviewed the resident's note and discussed the case with the resident. I agree with the resident's findings and plan as documented. SUBJECTIVE: no pain, no fever or chills, no abd pain. OBJECtive NAD CV : RRR Lungs : CTAB ext : no edcema ABd: soft, No TTP in RUQ . edge of liver palpated in RUQ under costal margin. no rebound tenderness or guarding A/P 75 y/o lady with h/o pancreatic cancer , HTN , GERD , Choledocholithiasis s/p CBD stent 09/2015 who presneted with abd pain, was found to have acute cholecytitis 1- Acute cholecystits with bacteremia : clinically much improved. repeat cx neg to date ( 48 hrs ) change Abx to levaquin and flagyl for total of 14 days form last fever 09/03 f/u with her GI ,f/u with Sx she understand the risk of recurrent sepsis without surgical intervention 2- pancreatic cancer , with increased size of tumor on CT scan . f/u with her Oncologist poor prognosis 3- HTN , cont meds dc home today
== END 2016-09-06 16:34 | disposition home or self-care (01) | DRG 445 ==
LOC: JER 15:50 → JERBED 21:43 → UNDOADMIN 21:58 → J6S 23:38
PROVIDERS: ADMIT Internal Medicine; ATTEND Internal Medicine
DX: K80.12 Calculus of gallbladder with acute and chronic cholecystitis without obstruction (principal); C25.9 Malignant neoplasm of pancreas, unspecified; R78.81 Bacteremia; K21.9 Gastro-esophageal reflux disease without esophagitis; I10 Essential (primary) hypertension; E87.6 Hypokalemia; B96.20 Unspecified Escherichia coli [E. coli] as the cause of diseases classified elsewhere; E11.9 Type 2 diabetes mellitus without complications
CPT/HCPCS: 36415; 72192-TC; 74150-TC; 78226-TC; 80048; 80053; 80076; 81003; 81015; 83036; 83690; 83735; 84100; 84132; 85025; 85027; 85610; 86850; 86900; 86901; 87040; 87086; 87186; 93005; 93010; 97116-GP; 97161-GP; 99282-25; A9537

== ENCOUNTER 2017-04-22 15:03 | Observation (INO) | payer OTHER, BC ==
--- NOTE | 2017-04-22 15:59 | PDOC ---
History of Present Illness - General History Source: Patient Exam Limitations: No Limitations - History of Present Illness Initial Comments: 04/22/17 17:38 The patient is a 76-year-old female with a significant past medical history of HTN, GERD, choledocholithiasis, recent Dx of pancreatic CA (s/p ERCP x2 and CBD stent placement; s/p radiation and chemo), who presents to the emergency department with fever, weakness, abdominal pain, nausea, and vomiting for 2 days. She states she had a Tmax of 102 F. She reports 2 episodes of bilious non- bloody vomiting today, although there is not a lot of vomit. She states she usually has mild intermittent right abdominal pain, but complains of worsening right abdominal pain for the last two days especially when she is lying on her right side althought she notes she has this frequently. She states eating does not worsen the pain. She states she called her PCP who prescribed Tamiflu and a Z-pack a few days ago. The patient denies chest pain, shortness of breath, headache and dizziness. The patient denies chills, cough, and diarrhea. The patient denies dysuria, frequency, urgency and hematuria. PCP: Dr. Columba Zheng GI: [facility] El[facility] ([place]) <Polly Faulkner - Last Filed: 04/22/17 17:40> <Wilbert Paulson - Last Filed: 04/22/17 19:28> - General Chief Complaint: SIRS, Suspected/Possible Stated Complaint: FEVER Time Seen by Provider: 04/22/17 15:37 Past History <Polly Faulkner - Last Filed: 04/22/17 17:40> - Past Medical History Anemia: No Asthma: No Cancer: No Cardiac Disorders: No CVA: No COPD: No CHF: No Dementia: No Diabetes: No GI Disorders: Yes (GERD) Disorders: No HTN: Yes Hypercholesterolemia: Yes Kidney Stones: Yes Liver Disease: No Seizures: No Thyroid Disease: No - Surgical History Abdominal Surgery: Yes (ercp) Appendectomy: No Cardiac Surgery: No Cholecystectomy: No Lung Surgery: No Neurologic Surgery: No Orthopedic Surgery: No - Immunization History Immunization Up to Date: Yes - Suicide/Smoking/Psychosocial Hx Smoking Status: No Smoking History: Unknown if ever smoked Have you smoked in the past 12 months: No Number of Cigarettes Smoked Daily: 0 Cigars Per Day: 0 Information on smoking cessation initiated: No Hx Alcohol Use: No Drug/Substance Use Hx: No Substance Use Type: None Hx Substance Use Treatment: No <Wilbert Paulson - Last Filed: 04/22/17 19:28> - Past Medical History Allergies/Adverse Reactions: Allergies Allergy/AdvReac Type Severity Reaction Status Date / Time shellfish derived Allergy Intermediate Verified 09/01/16 16:29 Home Medications: Ambulatory Orders Amlodipine Besylate [Norvasc -] 10 mg PO HS 11/23/15 Pantoprazole Sodium [Protonix] 40 mg PO DAILY 11/23/15 traMADol HCL [Ultram] 50 mg PO Q8H #10 tablet MDD 3 tabs 11/24/15 Lipase/Protease/Amylase [Rosa Sanches 24,000 Units Capsule] 2 each PO TID 09/01/16 Levofloxacin [Levaquin] 500 mg PO DAILY #12 tablet 09/06/16 metroNIDAZOLE [Flagyl -] 500 mg PO TID #36 tablet 09/06/16 Review of Systems - Review of Systems Able to Perform ROS?: Yes Comments:: 04/22/17 17:39 All other systems reviewed and are negative except noted in HPI <KaushikPolly - Last Filed: 04/22/17 17:40> *Physical Exam - Vital Signs Last Vital Signs Temp Pulse Resp BP Pulse Ox 103.4 F H 92 H 16 145/74 95 04/22/17 15:03 04/22/17 15:03 04/22/17 15:03 04/22/17 15:03 04/22/17 15:03 - Physical Exam Comments: 04/22/17 17:39 GENERAL: The patient is awake, alert, and fully oriented, Nontoxic - in no acute distress. HEAD: Normocephalic, atraumatic. EYES: extraocular movements intact, sclera anicteric, conjunctiva clear. ENT: Normal voice, Moist mucous membranes. NECK: Normal range of motion, supple LUNGS: Breath sounds equal, clear to auscultation bilaterally. No wheezes, no rhonchi, (+) rales at left base. HEART: Regular rate and rhythm, without murmur, rub or gallop. ABDOMEN: Soft, (+) Mild RUQ ttp, normoactive bowel sounds. No guarding, no rebound.No CVA tenderness EXTREMITIES: Normal range of motion, no edema. No clubbing or cyanosis. No cords, erythema, or tenderness. NEUROLOGICAL: No facial assymetry, Normal speech, PSYCH: Normal mood, normal affect. SKIN: Warm, Dry, normal turgor <Polly Faulkner - Last Filed: 04/22/17 17:40> - Vital Signs Last Vital Signs Temp Pulse Resp BP Pulse Ox 103.4 F H 92 H 16 145/74 95 04/22/17 15:03 04/22/17 15:03 04/22/17 15:03 04/22/17 15:03 04/22/17 15:03 <Wilbert Paulson - Last Filed: 04/22/17 19:28> Heart Score/ECG Review - ECG Impressions Comment:: 04/22/17 17:01 Twelve-lead EKG was performed and reviewed by me. There is normal sinus rhythm with a normal rate. Rate of 91 The axis is normal. First degree AV block <Wilbert Paulson - Last Filed: 04/22/17 19:28> ED Treatment Course - LABORATORY CBC & Chemistry Diagram: 04/22/17 16:31 04/22/17 16:31 - ADDITIONAL ORDERS Additional order review: Laboratory Results 04/22/17 04/22/17 04/22/17 16:31 16:31 16:31 PT with INR INR PTT (Actin FS) VBG pH 7.48 H POC VBG pCO2 33.1 L POC VBG pO2 70.2 H Mixed VBG HCO3 24.9 Sodium Cancelled Potassium Cancelled Chloride Cancelled Carbon Dioxide Cancelled Anion Gap Cancelled BUN Cancelled Creatinine Cancelled Creat Clearance w eGFR Cancelled Random Glucose Cancelled Lactic Acid Calcium Cancelled Total Bilirubin Cancelled AST Cancelled ALT Cancelled Alkaline Phosphatase Cancelled Creatine Kinase Cancelled Troponin I Cancelled Total Protein Cancelled Albumin Cancelled Blood Type Cancelled Antibody Screen Cancelled 04/22/17 04/22/17 16:31 16:14 PT with INR 12.50 H INR 1.11 PTT (Actin FS) 28.1 VBG pH POC VBG pCO2 POC VBG pO2 Mixed VBG HCO3 Sodium Potassium Chloride Carbon Dioxide Anion Gap BUN Creatinine Creat Clearance w eGFR Random Glucose Lactic Acid 0.9 Calcium Total Bilirubin AST ALT Alkaline Phosphatase Creatine Kinase Troponin I Total Protein Albumin Blood Type Antibody Screen 04/22/17 16:31 RBC 3.46 L MCV 87.0 MCHC 33.2 RDW 17.9 H D MPV 8.0 Neutrophils % 91.0 H D Lymphocytes % 2.6 L D Monocytes % 6.1 Eosinophils % 0.1 D Basophils % 0.2 - Medications Given in the ED: ED Medications Discontinued Medications Generic Name Dose Route Start Last Admin Trade Name Larry PRN Reason Stop Dose Admin Acetaminophen 1,000 mg 04/22/17 16:01 04/22/17 16:36 Ofirmev Injection - IVPB 04/22/17 16:02 1,000 mg ONCE ONE Administration <Polly Faulkner - Last Filed: 04/22/17 17:40> - LABORATORY CBC & Chemistry Diagram: 04/22/17 16:31 04/22/17 17:18 <Wilbert Paulson - Last Filed: 04/22/17 19:28> Medical Decision Making - Medical Decision Making 04/22/17 15:57 76y F hx of pancreatic ca last chemo late february, htn, choledocholithiariss sp ERCP x 2 (sp CBD stent, last was in late 2016), had fever to 103, started on tamiflu and zpack by PMD. Pt endorses n/v associated with the fever, vomiting was bilious, but notes not much vomit. Pt endoress R sided abodminal pain worse when she lies on that side. No worsening of pain with eating. Pt endorses feeling generalized weakness denies urinary symptoms, diarrhea, pale stools, cp, sob. on exam the pt has mild tenderness in the RUQ she also has rales in her L lung vitals noted for fever to103, however hr is suprisingly normal. ddx cholecystitis/cholangitis vs. pna sepsis orderset initiated will give tylenol for pain fluids will reassess 04/22/17 18:35 labs reviewed noted for mild leukocytosis with left shift pts cxr noted for some haziness in the L lower chest with loss of cardiac border US noted for thickened GB wall with stones, with normal LFTs, suspect possible pna, will great with abx anticipate admission for further management <Wilbert Paulson - Last Filed: 04/22/17 19:28> *DC/Admit/Observation/Transfer - Attestations Scribe Attestion: 04/22/17 17:39 Documentation prepared by Polly Faulkner, acting as medical billing clerk for Wilbert Paulson MD, /DO. <Polly Faulkner - Last Filed: 04/22/17 17:40> - Discharge Dispostion Admit: Yes <Wilbert Paulson - Last Filed: 04/22/17 19:28> Diagnosis at time of Disposition: Pneumonia Qualifiers: Pneumonia type: due to unspecified organism Laterality: left Lung location: lower lobe of lung Qualified Code(s): J18.1 - Lobar pneumonia, unspecified organism Sepsis Qualifiers: Sepsis type: sepsis due to unspecified organism Qualified Code(s): A41.9 - Sepsis, unspecified organism - Discharge Dispostion Condition at time of disposition: Stable
[2017-04-22] MEDS ORDERED: ACETAMINOPHEN 1000 MG/100 ML VIAL (NON FORMULARY) IVPB ONE (16:01)
[2017-04-22] MEDS ORDERED: ACETAMINOPHEN INJECTION 100 ML IVPB ONE (16:34)
[2017-04-22 16:36] LABS: BASO % 0.2 % (0-2.0); EOS % 0.1 % (0-4.5); HEMATOCRIT 30.1 % (32.4-45.2); LYMPH % 2.6 % (8-40); MCH 28.9 pg (25.7-33.7); MCHC 33.2 g/dl (32.0-36.0); MONO % 6.1 % (3.8-10.2); PLATELET COUNT 189 K/MM3 (134-434); RBC 3.46 M/mm3 (3.60-5.2); RDW 17.9 % (11.6-15.6); WHITE BLOOD COUNT 10.1 K/mm3 (4.0-10.0)
[2017-04-22 16:41] LABS: VENOUS PC02 33.1 mmHg (38-52); VENOUS PH 7.48 (7.32-7.42)
[2017-04-22 16:42] LABS: VENOUS PO2 70.2 mmHg (28-48)
[2017-04-22 16:59] LABS: INR 1.11 (0.82-1.09); PROTHROMBIN TIME (PATIENT) 12.5 SEC (9.98-11.88)
[2017-04-22 17:01] LABS: ACTIVATED PTT 28.1 SECONDS (26.9-34.4)
[2017-04-22 18:02] LABS: ALBUMIN 2.7 g/dl (3.4-5.0); ANION GAP 9 (8-16); BILIRUBIN,TOTAL 0.4 mg/dL (0.2-1.0); BLOOD UREA NITROGEN 13 mg/dL (7-18); CALCIUM 7.5 mg/dL (8.5-10.1); CHLORIDE 102 mmol/L (98-107); CO2 25 mmol/L (21-32); CREATININE 0.5 mg/dL (0.55-1.02); GLUCOSE,RANDOM 219 mg/dL (74-106); SGPT/ALT 15 U/L (12-78); SODIUM 136 mmol/L (136-145); TOT PROT 6.2 g/dl (6.4-8.2)
[2017-04-22 18:05] LABS: ALK PHOS 97 U/L (45-117)
[2017-04-22 18:10] LABS: POTASSIUM 3.4 mmol/L (3.5-5.1); SGOT/AST 22 U/L (15-37)
[2017-04-22] MEDS ORDERED: CEFTRIAXONE 1 GM in DEXTROSE 5%-WATER - 50 ML IVPB ONE (18:37)
[2017-04-22] MEDS ORDERED: PIPERACILLIN/TAZOB 4.5 GM/100 ML PREMIX BAG IVPB ONE (18:38)
[2017-04-22] MEDS ORDERED: PIPERACILLIN/TAZOB 4.5 GM 4.5 GM in DEXTROSE 5%-WATER - 100 ML IVPB ONE (18:45)
[2017-04-22] MEDS ORDERED: VANCOMYCIN 1,000 MG in DEXTROSE 5%-WATER - 250 ML IVPB ONE (18:45)
[2017-04-22] MEDS ORDERED: PIPERACILLIN/TAZOB 4.5 GM 4.5 GM/100 ML BAG IVPB ONE (18:47)
[2017-04-22] MEDS ORDERED: VANCOMYCIN 1 GRAM (PRE-DOCKED) 1,000 MG/250 ML BAG IVPB ONE (18:47)
[2017-04-22 19:28] LABS: URINE APPEARANCE CLEAR; URINE BILIRUBIN NEGATIVE (NEGATIVE); URINE BLOOD NEGATIVE (NEGATIVE); URINE COLOR LTYELLOW; URINE GLUCOSE (UA) 1+ (NEGATIVE); URINE KETONE TRACE (NEGATIVE); URINE LEUK ESTERASE NEGATIVE (NEGATIVE); URINE NITRITE NEGATIVE (NEGATIVE); URINE PROTEIN NEGATIVE (NEGATIVE); URINE UROBILINOGEN NEGATIVE mg/dL (0.2-1.0)
[2017-04-22] MEDS ORDERED: ONDANSETRON 4 MG/2 ML VIAL IVPUSH PRN (21:34)
--- NOTE | 2017-04-22 21:34 | HP ---
CHIEF COMPLAINT: fever, abd pain, N/V PCP: Marce; GI and oncologist at [facility] HISTORY OF PRESENT ILLNESS: This is a 76 year old female with a past medical history significant for pancreatic CA s/p radiation and chemo and duodenum stent, choledocholithiasis s/ p CBD stent presented to the ED with persistent fever x 2 days. She called her doctor who started her on tamiflu and azithromycin on Friday. She reports sore throat and headache at that time but stes she only had minimal cough and no runny nose or other respiratory symptoms. She started vomiting/wretching and was unable to keep down her tamiflu, thus she presented to the ED. Pt also reports slight increase in her usual RUQ/right flank pain. ER course was notable for: (1) WBC 10.1 (2) abd US with thickened GB wall and stones Recent Travel: none PAST MEDICAL HISTORY: HTN, HLD, GERD, DM, choledocholithiasis s/p ERCP x 2 and CBD stent, pancreatic CA s/p radiation and oral chemo (completed 02/2017) and duodenal stent PAST SURGICAL HISTORY: CBD stent duodenum stent Social History: Smoking: pt denies Alcohol: pt denies Drugs: pt denies Family History: mother with cholecystectomy, HTN; father , accidental; no siblings Allergies shellfish derived Allergy (Intermediate, Verified 09/01/16 16:29) HOME MEDICATIONS: 3 Medication Instructions Recorded Amlodipine Besylate [Norvasc -] 10 mg PO HS 11/23/15 Lipase/Protease/Amylase [Creon Dr 2 each PO TID 09/01/16 24,000 Units Capsule] Esomeprazole Magnesium [Nexium 40 mg PO DAILY 04/22/17 24Hr] Insulin Glargine,Hum.rec.anlog 10 unit SQ HS 04/22/17 [Lantus] REVIEW OF SYSTEMS CONSTITUTIONAL: Present: fever, chills Absent: diaphoresis, generalized weakness, malaise, loss of appetite, weight change HEENT: Absent: rhinorrhea, nasal congestion, throat pain, throat swelling, difficulty swallowing, mouth swelling, ear pain, eye pain, visual changes CARDIOVASCULAR: Absent: chest pain, syncope, palpitations, irregular heart rate, lightheadedness , peripheral edema RESPIRATORY: Absent: cough, shortness of breath, dyspnea with exertion, orthopnea, wheezing, stridor, hemoptysis GASTROINTESTINAL: Present: abdominal pain, nausea, vomiting Absent: abdominal distension, diarrhea, constipation, melena, hematochezia GENITOURINARY: Absent: dysuria, frequency, urgency, hesitancy, hematuria, flank pain, genital pain MUSCULOSKELETAL: Absent: myalgia, arthralgia, joint swelling, back pain, neck pain SKIN: Absent: rash, itching, pallor HEMATOLOGIC/IMMUNOLOGIC: Absent: easy bleeding, easy bruising, lymphadenopathy, frequent infections ENDOCRINE: Absent: unexplained weight gain, unexplained weight loss, heat intolerance, cold intolerance NEUROLOGIC: Absent: headache, focal weakness or paresthesias, dizziness, unsteady gait, seizure, mental status changes, bladder or bowel incontinence PSYCHIATRIC: Absent: anxiety, depression, suicidal or homicidal ideation, hallucinations. PHYSICAL EXAMINATION Vital Signs - 24 hr 3 04/22/17 04/22/17 04/22/17 15:03 15:59 18:45 Temperature 103.4 F H 103.5 F H 98.0 F Pulse Rate 92 H 91 H Respiratory 16 16 Rate Blood Pressure 145/74 O2 Sat by Pulse 95 100 Oximetry (%) GENERAL: Awake, alert, and fully oriented, in no acute distress. HEAD: Normal with no signs of trauma. EYES: Pupils equal, round and reactive to light, extraocular movements intact, sclera anicteric, conjunctiva clear. No lid lag. EARS, NOSE, THROAT: Ears normal, nares patent, oropharynx clear without exudates. Moist mucous membranes. NECK: Normal range of motion, supple without lymphadenopathy, JVD, or masses. LUNGS: Breath sounds equal, clear to auscultation bilaterally. No wheezes, and no crackles. No accessory muscle use. HEART: Regular rate and rhythm, normal S1 and S2 without murmur, rub or gallop. ABDOMEN: Soft, mildly tender to palpation right flank, not distended, normoactive bowel sounds, no guarding, no rebound, no masses. No hepatomegaly or splenomegaly. MUSCULOSKELETAL: Normal range of motion at all joints. No bony deformities or tenderness. No CVA tenderness. UPPER EXTREMITIES: 2+ pulses, warm, well-perfused. No cyanosis. No clubbing. No peripheral edema. LOWER EXTREMITIES: 2+ pulses, warm, well-perfused. No calf tenderness. No peripheral edema. NEUROLOGICAL: Cranial nerves II-XII intact. Normal speech. Normal gait. PSYCHIATRIC: Cooperative. Good eye contact. Appropriate mood and affect. SKIN: Warm, dry, normal turgor, no rashes or lesions noted, normal capillary refill. Laboratory Results - last 24 hr 3 04/22/17 04/22/17 04/22/17 16:14 16:31 16:31 WBC 10.1 H D RBC 3.46 L Hgb 10.0 L D Hct 30.1 L D MCV 87.0 MCH 28.9 MCHC 33.2 RDW 17.9 H D Plt Count 189 MPV 8.0 Neutrophils % 91.0 H D Lymphocytes % 2.6 L D Monocytes % 6.1 Eosinophils % 0.1 D Basophils % 0.2 PT with INR 12.50 H INR 1.11 PTT (Actin FS) 28.1 VBG pH 7.48 H POC VBG pCO2 33.1 L POC VBG pO2 70.2 H Mixed VBG HCO3 24.9 Sodium Potassium Chloride Carbon Dioxide Anion Gap BUN Creatinine Creat Clearance w eGFR Random Glucose Lactic Acid 0.9 Calcium Total Bilirubin AST ALT Alkaline Phosphatase Creatine Kinase Troponin I Total Protein Albumin Urine Color Urine Appearance Urine pH Ur Specific [place] Urine Protein Urine Glucose (UA) Urine Ketones Urine Blood Urine Nitrite Urine Bilirubin Urine Urobilinogen Ur Leukocyte Esterase Blood Type Antibody Screen 3 04/22/17 04/22/17 17:18 19:09 WBC RBC Hgb Hct MCV MCH MCHC RDW Plt Count MPV Neutrophils % Lymphocytes % Monocytes % Eosinophils % Basophils % PT with INR INR PTT (Actin FS) VBG pH POC VBG pCO2 POC VBG pO2 Mixed VBG HCO3 Sodium 136 Potassium 3.4 L Chloride 102 Carbon Dioxide 25 Anion Gap 9 BUN 13 Creatinine 0.5 L Creat Clearance w eGFR > 60 Random Glucose 219 H Lactic Acid Calcium 7.5 L Total Bilirubin 0.4 D AST 22 ALT 15 Alkaline Phosphatase 97 Creatine Kinase 40 Troponin I < 0.02 Total Protein 6.2 L Albumin 2.7 L Urine Color Ltyellow Urine Appearance Clear Urine pH 6.0 Ur Specific [place] 1.014 Urine Protein Negative Urine Glucose (UA) 1+ H Urine Ketones Trace H Urine Blood Negative Urine Nitrite Negative Urine Bilirubin Negative Urine Urobilinogen Negative Ur Leukocyte Esterase Negative Blood Type Antibody Screen ECG Sinus rhythm with first degree av block HR 91, QTC [address]/T changes Radiology Reports Chest xray IMPRESSION: No acute disease. Reported By: Ko Singh MD 04/22/17 1825 RUQ US IMPRESSION: 1. Thick-walled gallbladder with cholelithiasis. 2. S/P biliary stent. 3. Enlarged pancreatic head consistent with the patient's known malignancy. Limited study as described above. Reported By: Ko Singh MD 04/22/17 1831 ASSESSMENT/PLAN: 76yF with PMH HTN, HLD, GERD, DM, choledocholithiasis s/p ERCP x 2 and CBD stent , pancreatic CA s/p radiation and oral chemo (completed 02/2017) and duodenal stent presented to the ED with fever, N/V, abdominal pain Fever, PNA vs cholecystitis in setting of pancreatic CA - cont zosyn, ID consult - CXR read as negative, but when c/w old cxr, noted with haziness left base and blunting of costophrenic angle, will treat for PNA - cont tx for influenza, testing for same unavailable - US with thick walled GB and cholelithiasis in presence of fever and increased abd pain could be cholecystitis, will obtain GI consult, tx with zosyn - clear liquids HTN - pt unsure of home amlodipine dosing. she thinks it may have been decreased to 5mg. Will order 5mg and pt will check with her GERD - home nexium changed to formulary protonix pancreatic CA - will hold creon while on clear liquids - f/u with private GI and oncology as outpatient DVT PPX - heparin 5000u TID FEN - NS @83cc/hr - CMP in am - Clear liquids Dispo: pt admitted for further observation. Visit type - Emergency Visit Emergency Visit: Yes ED Registration Date: 04/22/17 Care time: The patient presented to the Emergency Department on the above date and was hospitalized for further evaluation of their emergent condition. - New Patient This patient is new to me today: Yes Date on this admission: 04/22/17 - Critical Care Critical Care patient: No Hospitalist Screening - Colonoscopy Questionnaire Colonoscopy Questionnaire: Colonoscopy Questionnaire - Patient: 50 - 75 years old and never had a screening colonoscopy: No History of colon or rectal polyps, or CA: No History of IBD, Crohn's disease or UC: No History of abdominal radiation therapy as a child: No - Relative: 1 with colon or rectal CA, or polyps at age 60 or younger: No Colon or rectal CA diagnosed at age 45 or younger: No Multiple relatives with colon or rectal CA: No - Outcome: Screening Result: Negative Screen
[2017-04-22] MEDS: SODIUM CHLORIDE 1,000 ML IV SCH (21:55)
[2017-04-22] MEDS ORDERED: VANCOMYCIN 1,000 MG in DEXTROSE 5%-WATER - 250 ML IVPB SCH (22:00)
[2017-04-22] MEDS ORDERED: PATIENT'S OWN MEDICATION (NON-FORMULARY) (Lipase/Protease/Amylase [Creon Dr 24,000 Units C PO SCH (22:00)
[2017-04-22] MEDS ORDERED: amLODIPine BESYLATE 10 MG TABLET (FP) PO SCH (22:00)
[2017-04-22] MEDS ORDERED: OSELTAMIVIR PHOSPHATE 75 MG CAPSULE ONE (23:17)
[2017-04-22] MEDS ORDERED: amLODIPine BESYLATE 5 MG TABLET (FP) ONE (23:17)
[2017-04-22] MEDS ORDERED: INSULIN DETEMIR 100 UNITS/ML MDV SQ ONE (23:18)
[2017-04-23] MEDS: INSULIN DETEMIR 100 UNITS/ML MDV SQ SCH ×2 (00:06→21:35)
[2017-04-23] MEDS: OSELTAMIVIR PHOSPHATE 75 MG CAPSULE PO SCH ×3 (00:06→21:35)
[2017-04-23] MEDS: amLODIPine BESYLATE 5 MG TABLET (FP) PO SCH ×2 (00:07→21:34)
[2017-04-23] MEDS: INSULIN SLIDING SCALE (NOVOLOG) 1 VIAL SQ SCH ×5 (00:07→21:36)
[2017-04-23] MEDS: SODIUM CHLORIDE 1,000 ML IV SCH (02:00)
[2017-04-23 02:47] VITALS: BMI 19.3
[2017-04-23] MEDS ORDERED: PIPERACILLIN/TAZOB 4.5 GM 4.5 GM in DEXTROSE 5%-WATER - 100 ML IVPB ONE (03:00)
[2017-04-23] MEDS ORDERED: PIPERACILLIN/TAZOB 4.5 GM/100 ML PREMIX BAG IVPB ONE (03:00)
[2017-04-23] MEDS: HEPARIN NA (PORCINE) 5,000 UNITS/ML 1ML VIAL SQ SCH ×4 (05:49→21:37)
[2017-04-23] MEDS ORDERED: ACETAMINOPHEN 650 MG SUPP.RECT PR ONE (06:04)
[2017-04-23 07:36] LABS: BASO % 0.3 % (0-2.0); EOS % 0.4 % (0-4.5); HEMATOCRIT 28.3 % (32.4-45.2); HEMOGLOBIN 9.4 GM/dL (10.7-15.3); LYMPH % 5.9 % (8-40); MCH 28.5 pg (25.7-33.7); MCHC 33.1 g/dl (32.0-36.0); MEAN CELL VOLUME 86.2 fl (80-96); MEAN PLT VOLUME 7.3 fl (7.5-11.1); NEUT % 83.4 % (42.8-82.8); PLATELET COUNT 177 K/MM3 (134-434); RBC 3.29 M/mm3 (3.60-5.2); RDW 17.3 % (11.6-15.6); WHITE BLOOD COUNT 7.3 K/mm3 (4.0-10.0)
[2017-04-23 08:10] LABS: ALBUMIN 2.5 g/dl (3.4-5.0); ALK PHOS 91 U/L (45-117); ANION GAP 11 (8-16); BILIRUBIN,TOTAL 0.6 mg/dL (0.2-1.0); BLOOD UREA NITROGEN 9 mg/dL (7-18); CALCIUM 8.2 mg/dL (8.5-10.1); CHLORIDE 102 mmol/L (98-107); CO2 26 mmol/L (21-32); CREATININE 0.4 mg/dL (0.55-1.02); GLUCOSE,RANDOM 109 mg/dL (74-106); MAGNESIUM 2.2 mg/dL (1.8-2.4); PHOSPHOROUS 2.6 mg/dL (2.5-4.9); SGOT/AST 14 U/L (15-37); SGPT/ALT 12 U/L (12-78); SODIUM 139 mmol/L (136-145); TOT PROT 6.4 g/dl (6.4-8.2)
--- NOTE | 2017-04-23 08:22 | PN ---
Progress Note (short form) - Note Progress Note: ID Known pancreatic cancer duodenal stent and biliary stent Post chemotherapy and radiation Fever chills dry couph 4 days Selected Entries 04/23/17 04/23/17 05:00 05:35 Temperature 101.5 F H Pulse Rate 81 Respiratory 18 Rate Blood Pressure 124/54 Oxygen Delivery Room Air Method Lung Few rales LLL Cor S1 S2 Abd Soft notender Laboratory Tests 04/22/17 04/22/17 04/23/17 17:18 19:09 07:05 WBC 7.3 Hgb 9.4 L Hct 28.3 L Plt Count 177 Total Bilirubin 0.4 D AST 22 Ur Leukocyte Esterase Negative Assessment Fever ? Viral illness early PNA Doubt cholangitis cholecysitits no abd pain and normal LFTS Plan Ceftriaxone Azithro Oseltamavir CT chest Tram HATCH Problem List - Problems (1) Fever Code(s): R50.9 - FEVER, UNSPECIFIED (2) Pancreatic cancer Code(s): C25.9 - MALIGNANT NEOPLASM OF PANCREAS, UNSPECIFIED
--- NOTE | 2017-04-23 09:18 | CONS ---
DATE OF CONSULTATION: DATE OF DICTATION: 04/23/2017 This is a 76-year-old female with known pancreatic cancer who I am asked to see for evaluation of fever and chills with nonproductive cough over the last 3-4 days. She has a history of pancreatic cancer, and apparently in the past had had placement of both a duodenal stent as well as a biliary stent. She has known cholelithiasis by history. In January into February she received oral chemotherapy along with radiation therapy. Four days ago she developed onset of fever at home to 102 with chills and some nonproductive cough and retching. She denied any abdominal pain, jaundice, or urinary complaints. She was given a prescription 3 days ago for azithromycin and Tamiflu, which she took, but because of persistent fever and her inability to keep her medications down, she is admitted for further evaluation. Here her chest x-ray was noted to be negative. She lives at home with her , who is not ill. She has no history of recent travel, unusual hobbies, or exposure to any pets. She has been immunized with influenza vaccine this season. Blood cultures have been drawn, and she was given Tamiflu as well as ceftriaxone. The patient is a known diabetic. PAST MEDICAL HISTORY: As noted above. MEDICATIONS: Include pancreatic enzymes, Nexium, and insulin. FAMILY HISTORY: Reviewed, noncontributory. SOCIAL HISTORY: Nonsmoker, no alcohol or substance abuse. REVIEW OF SYSTEMS: Respiratory: Nonproductive cough. No shortness of breath, chest pain, hemoptysis. Cardiac: No palpitations, syncope, murmur. Gastrointestinal: No abdominal pain, nausea. No vomiting. Genitourinary: No dysuria or hematuria. PHYSICAL EXAMINATION: Vital Signs: She was a thin-appearing woman weighing 160 pounds with a temperature of 101.5, pulse 81, blood pressure 124/54, respirations 18, 96% oxygen saturation on room air. HEENT: The oropharynx was benign without exudate or thrush. Neck: Supple, without adenopathy. Lungs: Clear to percussion with few crackles noted, left base. Heart: S1, S2, regular rhythm without audible murmur. Abdomen: Soft, nontender. No guarding, no rebound. No palpable mass. Extremities: No clubbing, cyanosis, edema. LABORATORY: White count 10.1, hemoglobin 10, platelets 189. Liver enzymes within normal limits. BUN 13, creatinine 0.5. Urinalysis screening negative leukocyte esterase. ASSESSMENT: A 76-year-old female with history of pancreatic cancer status post duodenal and common bile duct stents, history of Escherichia coli bacteremia secondary to cholangitis, known diabetic presents with 4-day history of respiratory complaints with cough, fever, and chills consistent with possible viral upper respiratory tract infection and/or early pneumonia. While she is at risk for recurrent cholangitis and bacteremia, her liver enzymes are normal and she has absolutely no abdominal pain on examination, making cholangitis and cholecystitis much less likely. Would treat her for the possibility of influenza. PLAN: Blood cultures, urine culture, ceftriaxone, azithromycin, and Tamiflu. For completeness a CAT scan of the chest will be ordered to determine whether or not she has a left lower lobe infiltrate, but in any case she is being treated for pneumonia. DIANE ADAMS M.D. [id number]
[2017-04-23 09:41] LABS: POTASSIUM 2.9 mmol/L (3.5-5.1)
[2017-04-23] MEDS ORDERED: CEFTRIAXONE 1 GM in DEXTROSE 5%-WATER - 50 ML IVPB SCH (10:00)
[2017-04-23] MEDS ORDERED: PT OWN MED DRAWER 7, Y5N ONE (10:37)
[2017-04-23] MEDS: CEFTRIAXONE 1 G/50 ML PREMIX 50 ML IVPB SCH (10:38)
[2017-04-23] MEDS: PANTOPRAZOLE 40 MG TABLET (FP) PO SCH (10:38)
[2017-04-23] MEDS: AZITHROMYCIN IVPB 500 MG in DEXTROSE 5%-WATER - 250 ML IVPB SCH (10:40)
--- NOTE | 2017-04-23 11:40 | EKG ---
Test Reason : Blood Pressure : / mmHG Vent. Rate : 091 BPM Atrial Rate : 091 BPM P-R Int : 254 ms QRS Dur : 074 ms QT Int : 352 ms P-R-T Axes : 048 020 015 degrees QTc Int : 432 ms SINUS RHYTHM WITH 1ST DEGREE A-V BLOCK CANNOT RULE OUT ANTERIOR INFARCT , AGE UNDETERMINED ABNORMAL ECG WHEN COMPARED WITH ECG OF 02-SEP-2016 08:58, VENT. RATE HAS INCREASED BY 30 BPM NONSPECIFIC T WAVE ABNORMALITY NOW EVIDENT IN ANTEROLATERAL LEADS QT HAS SHORTENED Confirmed by EDGARDO HATCH, SHIRLEY ([id number]) on 04/23/2017 11:40:03 AM Referred By: Confirmed By:SHIRLEY REYNOSO MD
[2017-04-23] MEDS ORDERED: ACETAMINOPHEN 650 MG/20.3 ML ORAL SOLUTION (CUPS) PO PRN (12:13)
--- NOTE | 2017-04-23 12:39 | PN ---
Progress Note, Physician Chief Complaint: Nausea, Vomiting, Fever History of Present Illness: NAD, sitting at the edge of the bed -no nausea at the moment -on PPI -seen by ID-On IV abx and Tamiflu -states Tamiflu upsets her stomach - Current Medication List Current Medications: Active Medications Acetaminophen (Tylenol Oral Solution -) 650 mg PO Q6H PRN PRN Reason: FEVER Amlodipine Besylate (Norvasc -) 5 mg PO HS [facility] Last Admin: 04/23/17 00:07 Dose: 5 mg Heparin Sodium (Porcine) (Heparin -) 5,000 unit SQ TID [facility] Last Admin: 04/23/17 05:49 Dose: 5,000 unit Azithromycin 500 mg/ Dextrose 250 mls @ 250 mls/hr IVPB DAILY [facility] Last Admin: 04/23/17 10:40 Dose: 250 mls/hr CEFTRIAXONE 1 G/50 ML PREMIX (Ceftriaxone 1 Gm-D5w Bag) 50 mls @ 100 mls/hr IVPB DAILY [facility] Last Admin: 04/23/17 10:38 Dose: 100 mls/hr Potassium Chloride/Sodium Chloride (Ns+20 Meq Kcl -) 20 meq in 1,000 mls @ 83 mls/hr IV ASDIR [facility] Potassium Chloride (Potassium Chloride 10 Meq Premix Ivpb -) 10 meq in 100 mls @ 100 mls/hr IVPB Q60M [facility] Stop: 04/23/17 15:14 Insulin Aspart (Novolog Vial Sliding Scale -) 1 vial SQ HS [facility] PRN Reason: Protocol Last Admin: 04/23/17 00:07 Dose: Not Given Insulin Aspart (Novolog Vial Sliding Scale -) 1 vial SQ TIDAC [facility] PRN Reason: Protocol Last Admin: 04/23/17 11:48 Dose: Not Given Insulin Detemir (Levemir Vial) 5 units SQ HS [facility] Last Admin: 04/23/17 00:06 Dose: 5 units Non-Formulary Medication (Lipase/Protease/Amylase [Rosa Sanches 24,000 Units Capsule ]) 2 each PO TID [facility] Ondansetron HCl (Zofran Injection) 4 mg IVPUSH Q6H PRN PRN Reason: NAUSEA Oseltamivir Phosphate (Tamiflu -) 75 mg PO BID [facility] Stop: 04/25/17 22:01 Last Admin: 04/23/17 10:38 Dose: 75 mg Pantoprazole Sodium (Protonix -) 40 mg PO DAILY [facility] Last Admin: 04/23/17 10:38 Dose: 40 mg - Objective Vital Signs: Vital Signs Temperature 97.9 F 04/23/17 09:00 Pulse Rate 66 04/23/17 09:00 Respiratory Rate 18 04/23/17 09:00 Blood Pressure 101/53 04/23/17 09:00 O2 Sat by Pulse Oximetry (%) 96 04/23/17 02:25 Constitutional: Yes: Well Nourished, No Distress, Calm Cardiovascular: Yes: Regular Rate and Rhythm, Murmur (Grade III/) Respiratory: Yes: Regular Gastrointestinal: Yes: Normal Bowel Sounds, Soft Musculoskeletal: Yes: WNL Extremities: Yes: WNL Edema: No Peripheral Pulses WNL: Yes Neurological: Yes: Alert, Oriented Psychiatric: Yes: Alert, Oriented Labs: CBC, BMP 04/23/17 07:05 04/23/17 07:05 INR, PTT INR 1.11 (0.82-1.09) 04/22/17 16:31 Problem List - Problems (1) Fever Assessment/Plan: -Febrile earlier in AM -Acetaminophen -IV abx -Tamiflu -CT chest report pending Code(s): R50.9 - FEVER, UNSPECIFIED (2) Pancreatic cancer Code(s): C25.9 - MALIGNANT NEOPLASM OF PANCREAS, UNSPECIFIED (3) Hypokalemia Assessment/Plan: -replenish via IV KCl -Change IVF to N/S 20 meq KCL Code(s): E87.6 - HYPOKALEMIA (4) Nausea & vomiting Assessment/Plan: -advance diet gradually -IVF -KCl -Offered Zofran-refused, makes her constipated. Code(s): R11.2 - NAUSEA WITH VOMITING, UNSPECIFIED Assessment/Plan see problem list
[2017-04-23] MEDS: POTASSIUM CHLORIDE 10 MEQ in SODIUM CHLORIDE 100 ML IVPB SCH ×2 (13:58→16:07)
[2017-04-23] MEDS: SODIUM CHLORIDE 0.9%/KCL 20 MEQ/1,000 ML INFUS.BAG IV SCH (14:00)
[2017-04-23] MEDS ORDERED: POTASSIUM CHLORIDE TABS 20 MEQ TABLET.ER (FP) PO ONE (16:15)
[2017-04-23] MEDS ORDERED: PANTOPRAZOLE SODIUM 40 MG in SODIUM CHLORIDE 100 ML IVPB ONE (19:18)
--- NOTE | 2017-04-23 19:22 | CON.GI ---
Consult Consult Specialty:: GI - History of Present Illness History of Present Illness: The pationt was admitted with FLU. She has PMH of pancreatic cancer s/p chetherapy and radiation treatment. She has nausea but denies abdomial pain and fever. - History Source History Provided By: Patient - Alcohol/Substance Use Hx Alcohol Use: No - Smoking History Smoking history: Unknown if ever smoked Have you smoked in the past 12 months: No Aproximately how many cigarettes per day: 0 Home Medications - Allergies Allergies/Adverse Reactions: Allergies Allergy/AdvReac Type Severity Reaction Status Date / Time shellfish derived Allergy Intermediate Verified 09/01/16 16:29 - Home Medications Home Medications: Ambulatory Orders Amlodipine Besylate [Norvasc -] 10 mg PO HS 11/23/15 Lipase/Protease/Amylase [Rosa Sanches 24,000 Units Capsule] 2 each PO TID 09/01/16 Esomeprazole Magnesium [Nexium 24Hr] 40 mg PO DAILY 04/22/17 Insulin Glargine,Hum.rec.anlog [Lantus] 10 unit SQ HS 04/22/17 Physical Exam-GI Vital Signs: Vital Signs Temperature 99.3 F 04/23/17 17:58 Pulse Rate 82 04/23/17 17:58 Respiratory Rate 20 04/23/17 17:58 Blood Pressure 149/67 04/23/17 17:58 O2 Sat by Pulse Oximetry (%) 96 04/23/17 02:25 Constitutional: Yes: Well Nourished Eyes: Yes: Conjunctiva Clear HENT: Yes: Atraumatic Neck: Yes: Supple Cardiovascular: Yes: Regular Rate and Rhythm Respiratory: Yes: CTA Bilaterally ...Palpate: Yes: Soft. No: Firm/Rigid, Guarding, Hepatomegaly, Mass, Pulsatile Mass, Splenomegaly, Tenderness Labs: CBC, BMP 04/23/17 07:05 04/23/17 07:05 INR, PTT INR 1.11 (0.82-1.09) 04/22/17 16:31 Problem List - Problems (1) Nausea & vomiting Assessment/Plan: secondary to transient gastroparesis due to viral infection R> IV Reglan and Protonix advance diet Code(s): R11.2 - NAUSEA WITH VOMITING, UNSPECIFIED (2) Pancreatic cancer Code(s): C25.9 - MALIGNANT NEOPLASM OF PANCREAS, UNSPECIFIED
[2017-04-23] MEDS ORDERED: PANTOPRAZOLE SODIUM 40 MG VIAL IVPUSH ONE (19:45)
[2017-04-23] MEDS ORDERED: ACETAMINOPHEN 650 MG SUPP.RECT PR PRN (20:45)
[2017-04-23] MEDS: METOCLOPRAMIDE HCL INJECTION 10 MG/2 ML VIAL IVPB SCH (21:26)
[2017-04-24] MEDS: METOCLOPRAMIDE HCL INJECTION 10 MG/2 ML VIAL IVPB SCH ×2 (04:17→11:30)
[2017-04-24] MEDS: HEPARIN NA (PORCINE) 5,000 UNITS/ML 1ML VIAL SQ SCH (05:39)
[2017-04-24] MEDS: INSULIN SLIDING SCALE (NOVOLOG) 1 VIAL SQ SCH ×2 (06:11→11:33)
[2017-04-24] MEDS: SODIUM CHLORIDE 0.9%/KCL 20 MEQ/1,000 ML INFUS.BAG IV SCH (06:13)
[2017-04-24 07:00] LABS: BASO % 0.3 % (0-2.0); EOS % 2.3 % (0-4.5); HEMATOCRIT 33.6 % (32.4-45.2); HEMOGLOBIN 11.3 GM/dL (10.7-15.3); LYMPH % 14.7 % (8-40); MCH 29.4 pg (25.7-33.7); MCHC 33.5 g/dl (32.0-36.0); MEAN CELL VOLUME 87.6 fl (80-96); MEAN PLT VOLUME 7.5 fl (7.5-11.1); MONO % 13.3 % (3.8-10.2); NEUT % 69.4 % (42.8-82.8); PLATELET COUNT 244 K/MM3 (134-434); RBC 3.84 M/mm3 (3.60-5.2); RDW 17.4 % (11.6-15.6); WHITE BLOOD COUNT 6.4 K/mm3 (4.0-10.0)
[2017-04-24 07:11] VITALS: BP 126/66; PULSE 67; TEMP 98.5
[2017-04-24 07:18] LABS: CALCIUM 8.9 mg/dL (8.5-10.1); CHLORIDE 103 mmol/L (98-107); POTASSIUM 3.5 mmol/L (3.5-5.1); SODIUM 141 mmol/L (136-145)
[2017-04-24 07:25] LABS: ALBUMIN 3.1 g/dl (3.4-5.0); ALK PHOS 105 U/L (45-117); ANION GAP 10 (8-16); BILIRUBIN,TOTAL 0.4 mg/dL (0.2-1.0); BLOOD UREA NITROGEN 8 mg/dL (7-18); CO2 28 mmol/L (21-32); CREATININE 0.5 mg/dL (0.55-1.02); GLUCOSE,RANDOM 104 mg/dL (74-106); SGOT/AST 16 U/L (15-37); SGPT/ALT 15 U/L (12-78); TOT PROT 7.4 g/dl (6.4-8.2)
[2017-04-24] MEDS: PANTOPRAZOLE 40 MG TABLET (FP) PO SCH ×2 (08:25→10:29)
[2017-04-24] MEDS ORDERED: PT OWN MED DRAWER 7, Y5N ONE (10:27)
[2017-04-24] MEDS: CEFTRIAXONE 1 G/50 ML PREMIX 50 ML IVPB SCH (10:30)
[2017-04-24] MEDS: OSELTAMIVIR PHOSPHATE 75 MG CAPSULE PO SCH (10:30)
--- NOTE | 2017-04-24 10:33 | PN ---
Progress Note, Physician Chief Complaint: Nausea, Vomiting, Fever History of Present Illness: NAD, sitting at the edge of the bed -no nausea at the moment -on PPI -seen by ID -On IV abx and Tamiflu -Hypokalemia resolved -tolerating po intake - Current Medication List Current Medications: Active Medications Acetaminophen (Tylenol Suppository -) 650 mg [place] Q6H PRN PRN Reason: FEVER Last Admin: 04/23/17 21:40 Dose: 650 mg Amlodipine Besylate (Norvasc -) 5 mg PO HS [facility] Last Admin: 04/23/17 21:34 Dose: 5 mg Heparin Sodium (Porcine) (Heparin -) 5,000 unit SQ TID [facility] Last Admin: 04/24/17 05:39 Dose: Not Given Azithromycin 500 mg/ Dextrose 250 mls @ 250 mls/hr IVPB DAILY [facility] Last Admin: 04/23/17 10:40 Dose: 250 mls/hr CEFTRIAXONE 1 G/50 ML PREMIX (Ceftriaxone 1 Gm-D5w Bag) 50 mls @ 100 mls/hr IVPB DAILY [facility] Last Admin: 04/23/17 10:38 Dose: 100 mls/hr Potassium Chloride/Sodium Chloride (Ns+20 Meq Kcl -) 20 meq in 1,000 mls @ 83 mls/hr IV ASDIR [facility] Last Admin: 04/24/17 06:13 Dose: 83 mls/hr Insulin Aspart (Novolog Vial Sliding Scale -) 1 vial SQ HS [facility] PRN Reason: Protocol Last Admin: 04/23/17 21:36 Dose: Not Given Insulin Aspart (Novolog Vial Sliding Scale -) 1 vial SQ TIDAC [facility] PRN Reason: Protocol Last Admin: 04/24/17 06:11 Dose: Not Given Insulin Detemir (Levemir Vial) 5 units SQ HS [facility] Last Admin: 04/23/17 21:35 Dose: 5 units Metoclopramide HCl (Reglan Injection -) 10 mg IVPB Q8H [facility] Last Admin: 04/24/17 04:17 Dose: Not Given Non-Formulary Medication (Lipase/Protease/Amylase [[place] Dr 24,000 Units Capsule ]) 2 each PO TID [facility] Ondansetron HCl (Zofran Injection) 4 mg IVPUSH Q6H PRN PRN Reason: NAUSEA Oseltamivir Phosphate (Tamiflu -) 75 mg PO BID [facility] Stop: 04/25/17 22:01 Last Admin: 04/23/17 21:35 Dose: 75 mg Pantoprazole Sodium (Protonix -) 40 mg PO DAILY [facility] Last Admin: 04/24/17 08:25 Dose: 40 mg - Objective Vital Signs: Vital Signs Temperature 98.5 F 04/24/17 06:00 Pulse Rate 67 04/24/17 06:00 Respiratory Rate 20 04/24/17 05:00 Blood Pressure 126/66 04/24/17 06:00 O2 Sat by Pulse Oximetry (%) 96 04/23/17 02:25 Constitutional: Yes: Well Nourished, No Distress, Calm Cardiovascular: Yes: Regular Rate and Rhythm Respiratory: Yes: Regular Gastrointestinal: Yes: Normal Bowel Sounds, Soft Musculoskeletal: Yes: WNL Extremities: Yes: WNL Edema: No Peripheral Pulses WNL: Yes Neurological: Yes: Alert, Oriented Psychiatric: Yes: Alert, Oriented Labs: CBC, BMP 04/24/17 06:35 04/24/17 06:35 INR, PTT INR 1.11 (0.82-1.09) 04/22/17 16:31 Problem List - Problems (1) Fever Assessment/Plan: -afebrile -Acetaminophen -IV abx -Tamiflu -CT chest report reviewed, follow up with pulmonary outpatient for repeat CT chest in 3 months Code(s): R50.9 - FEVER, UNSPECIFIED (2) Pancreatic cancer Assessment/Plan: seen by GI -tolerating PO intake Code(s): C25.9 - MALIGNANT NEOPLASM OF PANCREAS, UNSPECIFIED (3) Hypokalemia Assessment/Plan: -resolved Code(s): E87.6 - HYPOKALEMIA (4) Nausea & vomiting Assessment/Plan: -resolved. Code(s): R11.2 - NAUSEA WITH VOMITING, UNSPECIFIED Assessment/Plan see problem list D/C home on Tamiflu 75 mg po BID and Ceftin 500 mg po BID x 5 days F/U with PCP, GI and pulmonary outpatient
--- NOTE | 2017-04-24 10:46 | PN ---
Progress Note, Physician Chief Complaint: ID Looks and feels well Ceftriaxone and Azithromycin - Current Medication List Current Medications: Active Medications Acetaminophen (Tylenol Suppository -) 650 mg [place] Q6H PRN PRN Reason: FEVER Last Admin: 04/23/17 21:40 Dose: 650 mg Amlodipine Besylate (Norvasc -) 5 mg PO HS [facility] Last Admin: 04/23/17 21:34 Dose: 5 mg Heparin Sodium (Porcine) (Heparin -) 5,000 unit SQ TID [facility] Last Admin: 04/24/17 05:39 Dose: Not Given Azithromycin 500 mg/ Dextrose 250 mls @ 250 mls/hr IVPB DAILY [facility] Last Admin: 04/23/17 10:40 Dose: 250 mls/hr CEFTRIAXONE 1 G/50 ML PREMIX (Ceftriaxone 1 Gm-D5w Bag) 50 mls @ 100 mls/hr IVPB DAILY [facility] Last Admin: 04/24/17 10:30 Dose: 100 mls/hr Potassium Chloride/Sodium Chloride (Ns+20 Meq Kcl -) 20 meq in 1,000 mls @ 83 mls/hr IV ASDIR [facility] Last Admin: 04/24/17 06:13 Dose: 83 mls/hr Insulin Aspart (Novolog Vial Sliding Scale -) 1 vial SQ HS [facility] PRN Reason: Protocol Last Admin: 04/23/17 21:36 Dose: Not Given Insulin Aspart (Novolog Vial Sliding Scale -) 1 vial SQ TIDAC [facility] PRN Reason: Protocol Last Admin: 04/24/17 06:11 Dose: Not Given Insulin Detemir (Levemir Vial) 5 units SQ HS [facility] Last Admin: 04/23/17 21:35 Dose: 5 units Metoclopramide HCl (Reglan Injection -) 10 mg IVPB Q8H [facility] Last Admin: 04/24/17 04:17 Dose: Not Given Non-Formulary Medication (Lipase/Protease/Amylase [Creon Dr 24,000 Units Capsule ]) 2 each PO TID [facility] Ondansetron HCl (Zofran Injection) 4 mg IVPUSH Q6H PRN PRN Reason: NAUSEA Oseltamivir Phosphate (Tamiflu -) 75 mg PO BID [facility] Stop: 04/25/17 22:01 Last Admin: 04/24/17 10:30 Dose: 75 mg Pantoprazole Sodium (Protonix -) 40 mg PO DAILY [facility] Last Admin: 04/24/17 10:29 Dose: Not Given - Objective Vital Signs: Vital Signs Temperature 98.5 F 04/24/17 06:00 Pulse Rate 67 04/24/17 06:00 Respiratory Rate 20 04/24/17 05:00 Blood Pressure 126/66 04/24/17 06:00 O2 Sat by Pulse Oximetry (%) 96 04/23/17 02:25 Constitutional: Yes: No Distress Cardiovascular: Yes: Regular Rate and Rhythm, S1, S2 Respiratory: Yes: WNL, Regular, CTA Bilaterally. No: Rales, Rhonchi Gastrointestinal: Yes: Soft. No: Tenderness, Tenderness, Rebound Edema: No Labs: CBC, BMP 04/24/17 06:35 04/24/17 06:35 INR, PTT INR 1.11 (0.82-1.09) 04/22/17 16:31 Problem List - Problems (1) Fever Code(s): R50.9 - FEVER, UNSPECIFIED (2) Pancreatic cancer Code(s): C25.9 - MALIGNANT NEOPLASM OF PANCREAS, UNSPECIFIED Assessment/Plan Laboratory Tests 04/24/17 04/24/17 06:35 06:35 WBC 6.4 Hgb 11.3 D Plt Count 244 D BUN 8 Creatinine 0.5 L Assessment Respiratory tract infection Plan Discharge on tamiflu and Ceftin for 5 days Tram HATCH
[2017-04-24] MEDS ORDERED: INSULIN (NOVOLOG) ASPART 100 UNITS/ML 10ML VIAL ONE (11:24)
[2017-04-24] MEDS: AZITHROMYCIN IVPB 500 MG in DEXTROSE 5%-WATER - 250 ML IVPB SCH (11:33)
== END 2017-04-24 14:22 | disposition home or self-care (01) ==
LOC: JER 15:03 → JERBED 20:31 → J5S 04-23 01:37 → J6S 04-23 19:41
PROVIDERS: ADMIT Internal Medicine; ATTEND Family Medicine
PROC: 3E03329 Introduction of Other Anti-infective into Peripheral Vein, Percutaneous Approach (ICD-10-PCS; principal; 2017-04-22)
PROC: 3E033GC Introduction of Other Therapeutic Substance into Peripheral Vein, Percutaneous Approach (ICD-10-PCS; 2017-04-22)
PROC: 3E0337Z Introduction of Electrolytic and Water Balance Substance into Peripheral Vein, Percutaneous Approach (ICD-10-PCS; 2017-04-22)
PROC: 3E013VG Introduction of Insulin into Subcutaneous Tissue, Percutaneous Approach (ICD-10-PCS; 2017-04-22)
DX: R50.9 Fever, unspecified (principal); R11.2 Nausea with vomiting, unspecified; K80.80 Other cholelithiasis without obstruction; I10 Essential (primary) hypertension; K21.9 Gastro-esophageal reflux disease without esophagitis; E87.6 Hypokalemia; E78.00 Pure hypercholesterolemia, unspecified; C25.9 Malignant neoplasm of pancreas, unspecified; Z92.21 Personal history of antineoplastic chemotherapy; Z92.3 Personal history of irradiation; Z87.442 Personal history of urinary calculi; Z91.013 Allergy to seafood
CPT/HCPCS: 36415; 71046-TC-FY; 71250-TC; 76705-TC; 80053; 81003; 82550; 82803; 82962; 83605; 83690; 83735; 84100; 84484; 85025; 85610; 85730; 87040; 87086; 87804; 93005; 93010; 96365; 96367; 96368; 96372; 96375; 99285-25; G0378; J1644

== ENCOUNTER 2017-06-16 20:42 | Inpatient (IN) | payer OTHER, BC ==
[2017-06-16 22:18] LABS: URINE APPEARANCE SLCLOUDY; URINE BILIRUBIN NEGATIVE (<2.0 mg/dL); URINE COLOR LTYELLOW; URINE GLUCOSE (UA) NEGATIVE (NEGATIVE); URINE KETONE NEGATIVE (NEGATIVE); URINE LEUK ESTERASE NEGATIVE (NEGATIVE); URINE NITRITE NEGATIVE (NEGATIVE); URINE PROTEIN NEGATIVE (NEGATIVE); URINE UROBILINOGEN NEGATIVE mg/dL (0.2-1.0)
--- NOTE | 2017-06-16 22:31 | PDOC ---
History of Present Illness - General History Source: Patient Exam Limitations: No Limitations - History of Present Illness Initial Comments: 06/17/17 02:38 The patient is a 76 year old female, with a significant past medical history of HTN, HLD, GERD, DM, choledocholithiasis s/p ERCP x 2 and CBD stent, pancreatic CA s/p radiation and oral chemo (completed 02/2017) and duodenal stent who presents to the emergency department with upper back pain and generalized weakness for the past week. Patient reports pain is localized to the scapula, 9/ 10 in severity with no associated symptoms. Patient notes that the pain worsens when she lifts her R arm. Patient reports taking Tramadol for pain however denies any relief. Patient recently completed oral chemotherapy and radiation. Patient was also hospitalized at [facility] recently for workup of anemia and ptosis. No associated numbness/tingling/weakness. Patient denies chest pain, palpitations, diaphoresis, headache or dizziness. Patient denies fever, chills, abdominal pain, nausea, vomit, diarrhea or constipation. Patient denies dysuria, frequency, urgency or hematuria. Patient denies sick contacts or recent travel. Allergies: shellfish Past surgical history:CBD stent, duodenum stent Social history: None PCP: Columba Zheng GI: Estuardo Elise ([place]) <Gilda Walters - Last Filed: 06/17/17 02:52> <Wilbert Paulson - Last Filed: 06/17/17 02:53> - General Chief Complaint: Back Pain Stated Complaint: BACK PAIN Time Seen by Provider: 06/16/17 21:44 Past History <Gilda Walters - Last Filed: 06/17/17 02:52> - Past Medical History Anemia: No Asthma: No Cancer: No Cardiac Disorders: No CVA: No COPD: No CHF: No Dementia: No Diabetes: Yes GI Disorders: Yes (pancreatic CA with RT, po chemo.) Disorders: No HTN: Yes Hypercholesterolemia: Yes Kidney Stones: Yes Liver Disease: No Seizures: No Thyroid Disease: No - Surgical History Abdominal Surgery: Yes (ercp) Appendectomy: No Cardiac Surgery: No Cholecystectomy: No (cbd stent) Lung Surgery: No Neurologic Surgery: No Orthopedic Surgery: No - Immunization History Immunization Up to Date: Yes - Suicide/Smoking/Psychosocial Hx Smoking Status: No Smoking History: Unknown if ever smoked Have you smoked in the past 12 months: No Number of Cigarettes Smoked Daily: 0 Cigars Per Day: 0 Hx Alcohol Use: No Drug/Substance Use Hx: No Substance Use Type: None Hx Substance Use Treatment: No <LoreneWilbert - Last Filed: 06/17/17 02:53> - Past Medical History Allergies/Adverse Reactions: Allergies Allergy/AdvReac Type Severity Reaction Status Date / Time shellfish derived Allergy Intermediate Verified 06/17/17 02:34 Iodinated Contrast- Oral and Allergy Verified 06/17/17 02:29 IV Dye Home Medications: Ambulatory Orders Amlodipine Besylate [Norvasc -] 10 mg PO HS 11/23/15 Lipase/Protease/Amylase [Rosa Sanches 24,000 Units Capsule] 2 each PO TID 09/01/16 Esomeprazole Magnesium [Nexium 24Hr] 40 mg PO DAILY 04/22/17 Insulin Glargine,Hum.rec.anlog [Lantus] 10 unit SQ HS 04/22/17 Acetaminophen [Tylenol] 650 mg PO QID PRN 06/16/17 Tramadol HCl [Ultram] 50 mg PO ASDIR PRN 06/16/17 Review of Systems - Review of Systems Able to Perform ROS?: Yes Comments:: 06/17/17 02:38 All other systems reviewed and are negative except noted in HPI <Gilda Walters - Last Filed: 06/17/17 02:52> *Physical Exam - Vital Signs Last Vital Signs Temp Pulse Resp BP Pulse Ox 98.1 F 90 18 129/54 96 06/17/17 02:35 06/17/17 02:35 06/17/17 02:35 06/17/17 02:35 06/17/17 02:35 - Physical Exam Comments: 06/17/17 02:39 GENERAL: The patient is awake, alert, and fully oriented, Nontoxic - in no acute distress. HEAD: Normocephalic, atraumatic. EYES: extraocular movements intact, sclera anicteric, conjunctiva clear, L ptosis ENT: Normal voice, Moist mucous membranes. NECK: Normal range of motion, supple no midline cervical/thoracic/lumbar tenderness LUNGS: Mild crackles at the L base. No respiratory distress. HEART: Regular rate and rhythm, normal S1 and S2 without murmur, rub or gallop. ABDOMEN: Soft, nontender, No guarding, no rebound. No CVA tenderness BACK: mild diffuse tenderness to the R scapula, EXTREMITIES: Normal range of motion, no edema. No clubbing or cyanosis. No cords, erythema, or tenderness. NEUROLOGICAL: No facial assymetry, Normal speech, strength symmetric in upper/ lower extrmities, sensation intact symmetrically <RomeoGilda magana - Last Filed: 06/17/17 02:52> - Vital Signs Last Vital Signs Temp Pulse Resp BP Pulse Ox 98 F 98 H 20 151/47 99 06/16/17 20:53 06/16/17 20:53 06/16/17 20:53 06/16/17 20:53 06/16/17 20:53 <LoreneWilbert - Last Filed: 06/17/17 02:53> ED Treatment Course - LABORATORY CBC & Chemistry Diagram: 06/16/17 23:40 06/16/17 23:40 - ADDITIONAL ORDERS Additional order review: Laboratory Results 06/17/17 06/17/17 06/16/17 00:08 00:08 23:45 PT with INR 11.50 INR 1.02 PTT (Actin FS) 24.4 L Sodium Potassium Chloride Carbon Dioxide Anion Gap BUN Creatinine Creat Clearance w eGFR Random Glucose Calcium Total Bilirubin AST ALT Alkaline Phosphatase Creatine Kinase 20 L Troponin I 0.03 Total Protein Albumin Urine Color Urine Appearance Urine pH Ur Specific [place] Urine Protein Urine Glucose (UA) Urine Ketones Urine Blood Urine Nitrite Urine Bilirubin Urine Urobilinogen Ur Leukocyte Esterase Blood Type B POSITIVE Antibody Screen Negative Crossmatch See Detail 06/16/17 06/16/17 23:40 21:55 PT with INR INR PTT (Actin FS) Sodium 140 Potassium 3.9 Chloride 103 Carbon Dioxide 26 Anion Gap 11 BUN 16 Creatinine 0.5 L Creat Clearance w eGFR > 60 Random Glucose 155 H Calcium 8.2 L Total Bilirubin 0.3 D AST 14 L ALT 11 L Alkaline Phosphatase 145 H Creatine Kinase Troponin I Total Protein 6.2 L Albumin 2.9 L Urine Color Ltyellow Urine Appearance Slcloudy Urine pH 6.0 Ur Specific [place] 1.013 Urine Protein Negative Urine Glucose (UA) Negative Urine Ketones Negative Urine Blood Negative Urine Nitrite Negative Urine Bilirubin Negative Urine Urobilinogen Negative Ur Leukocyte Esterase Negative Blood Type Antibody Screen Crossmatch 06/16/17 23:40 RBC 1.85 L D MCV 89.6 MCHC 32.5 RDW 15.1 D MPV 7.1 L Neutrophils % 85.8 H D Lymphocytes % 5.1 L D Monocytes % 7.9 Eosinophils % 1.0 Basophils % 0.2 - Medications Given in the ED: ED Medications Discontinued Medications Generic Name Dose Route Start Last Admin Trade Name Larry PRN Reason Stop Dose Admin Ibuprofen 400 mg 06/16/17 22:47 06/16/17 22:57 Motrin - PO 06/16/17 22:48 400 mg ONCE ONE Administration Oxycodone/Acetaminophen 1 combo 06/16/17 22:47 06/16/17 22:57 Percocet 5/325 - PO 06/16/17 22:48 1 combo ONCE ONE Administration <Gilda Walters - Last Filed: 06/17/17 02:52> - LABORATORY CBC & Chemistry Diagram: 06/16/17 23:40 06/16/17 23:40 <Wilbert Paulson - Last Filed: 06/17/17 02:53> Medical Decision Making - Medical Decision Making 06/16/17 22:46 76y F HTN, GERD, choledocholithiasis, recent dx of pancreatic ca (s/p ERCP x2 and CBD stent placement; s/p radiation and chemo) presents with complaint of atraumatic R upper back pain w/o associate cp, sob, diaphoresis, f,c, abd pain, cough, hemoptysis numbness/tingling/weakness, neck pain, pt taking tramdol x 1 dose without improvement. pain worsens with abduction of her R arm. pt also complaining of generally weakness since her last hospitalization at [facility] without acute changes. on exam pt with focal tendernses to the R scapula/muscular, no focal bony tenderness suspect msk pain will ck labs to r/o anemia, metabolic dernagement xray to r/o mets will give motrin, percocet will reassess A portion of this note was documented by scribe services under my direction. I have reviewed the details of the note, within reason, and agree with the documentation with the following case summary and management plan written by me 06/17/17 01:04 The patient's blood work was reviewed The patient's hemoglobin is noted for severe anemia, to 5.8 --> no history of GI bleeds, diarrhea, melena, rectal. We'll transfuse 2 units of packed blood cells pts cxr noted for atelectic changes in the L base, but pt denies any symtoms suggestive of pna Will admit for further management 06/17/17 01:[address] mccrary agreed with admission for further workup Case discussed in detail with admitting physician including history, physical exam and ancillary studies. Admitting physician has assumed care for the patient, will follow all pending diagnostics and will complete the evaluation and treatment. <Wilbert Paulson - Last Filed: 06/17/17 02:53> *DC/Admit/Observation/Transfer - Attestations Scribe Attestion: 06/17/17 02:39 Documentation prepared by Gilda Walters, acting as medical record librarian for Wilbert Paulson MD <Gilda Walters - Last Filed: 06/17/17 02:52> - Discharge Dispostion Admit: Yes <Wilbert Paulson - Last Filed: 06/17/17 02:53> Diagnosis at time of Disposition: Anemia Qualifiers: Anemia type: unspecified type Qualified Code(s): D64.9 - Anemia, unspecified Back pain Qualifiers: Back pain location: thoracic back pain Chronicity: unspecified Back pain laterality: right Qualified Code(s): M54.6 - Pain in thoracic spine - Discharge Dispostion Condition at time of disposition: Stable
[2017-06-16] MEDS ORDERED: IBUPROFEN 400 MG TABLET (FP) PO ONE ×2 (22:47→22:48)
[2017-06-16 23:50] LABS: BASO % 0.2 % (0-2.0); LYMPH % 5.1 % (8-40); MCH 29.1 pg (25.7-33.7); MCHC 32.5 g/dl (32.0-36.0); MEAN CELL VOLUME 89.6 fl (80-96); MEAN PLT VOLUME 7.1 fl (7.5-11.1); MONO % 7.9 % (3.8-10.2); NEUT % 85.8 % (42.8-82.8); PLATELET COUNT 217 K/MM3 (134-434); RBC 1.85 M/mm3 (3.60-5.2); RDW 15.1 % (11.6-15.6)
[2017-06-16 23:54] LABS: HEMATOCRIT 16.6 % (32.4-45.2); HEMOGLOBIN 5.4 GM/dL (10.7-15.3)
[2017-06-17 00:54] LABS: ALBUMIN 2.9 g/dl (3.4-5.0); ALK PHOS 145 U/L (45-117); ANION GAP 11 (8-16); BILIRUBIN,TOTAL 0.3 mg/dL (0.2-1.0); BLOOD UREA NITROGEN 16 mg/dL (7-18); CALCIUM 8.2 mg/dL (8.5-10.1); CHLORIDE 103 mmol/L (98-107); CO2 26 mmol/L (21-32); CREATININE 0.5 mg/dL (0.55-1.02); GLUCOSE,RANDOM 155 mg/dL (74-106); POTASSIUM 3.9 mmol/L (3.5-5.1); SGOT/AST 14 U/L (15-37); SGPT/ALT 11 U/L (12-78); SODIUM 140 mmol/L (136-145); TOT PROT 6.2 g/dl (6.4-8.2)
[2017-06-17 01:00] LABS: INR 1.02 (0.82-1.09); PROTHROMBIN TIME (PATIENT) 11.5 SEC (9.7-13.0)
[2017-06-17 01:02] LABS: ACTIVATED PTT 24.4 SECONDS (26.9-34.4)
--- NOTE | 2017-06-17 01:35 | PN ---
Teaching Attending Note Name of Resident: Mey Daley ATTENDING PHYSICIAN STATEMENT I saw and evaluated the patient. I reviewed the resident's note and discussed the case with the resident. I agree with the resident's findings and plan as documented. SUBJECTIVE:76 F with Pmhx. of pancreatic ca, s/p RT/CHEMO with duodenal stent, choledocholithiasis s/p CBD stent, who presents with R. upper back pain. NO chest pain or pressure. No shortness of breath. Worse when R. arm is abducted. States she was recently hospitlized at [place], and told she had a low hemoglobin there. No hemetemsis, No black or bloody stools. No hematouria, No recent chemo. OBJECTIVE: Physical: VS: Vital Signs Period Temp Pulse Resp BP Sys/[place] Pulse Ox Last 24 Hr 98 F 98 20 151/47 99 GEN: NAD, Resting in bed, AA0X3 HEENT: NCAT, PERRL, L. EYE ptosis, Throat without erythema or exudates CARD: RRR S1, S2 RESP: CTAB ABD: BSx4, NTD to Palpation EXT: - C/C/E RECTAL: Deferred, see resident note CBCD WBC 9.0 K/mm3 (4.0-10.0) D 06/16/17 23:40 RBC 1.85 M/mm3 (3.60-5.2) L D 06/16/17 23:40 Hgb 5.4 GM/dL (10.7-15.3) L* D 06/16/17 23:40 Hct 16.6 % (32.4-45.2) L D 06/16/17 23:40 MCV 89.6 fl (80-96) 06/16/17 23:40 MCHC 32.5 g/dl (32.0-36.0) 06/16/17 23:40 RDW 15.1 % (11.6-15.6) D 06/16/17 23:40 Plt Count 217 K/MM3 (134-434) 06/16/17 23:40 MPV 7.1 fl (7.5-11.1) L 06/16/17 23:40 CMP Sodium 140 mmol/L (136-145) 06/16/17 23:40 Potassium 3.9 mmol/L (3.5-5.1) 06/16/17 23:40 Chloride 103 mmol/L (98-107) 06/16/17 23:40 Carbon Dioxide 26 mmol/L (21-32) 06/16/17 23:40 Anion Gap 11 (8-16) 06/16/17 23:40 BUN 16 mg/dL (7-18) 06/16/17 23:40 Creatinine 0.5 mg/dL (0.55-1.02) L 06/16/17 23:40 Creat Clearance w eGFR > 60 (>60) 06/16/17 23:40 Calcium 8.2 mg/dL (8.5-10.1) L 06/16/17 23:40 Total Bilirubin 0.3 mg/dL (0.2-1.0) D 06/16/17 23:40 AST 14 U/L (15-37) L 06/16/17 23:40 ALT 11 U/L (12-78) L 06/16/17 23:40 Alkaline Phosphatase 145 U/L (45-117) H 06/16/17 23:40 Total Protein 6.2 g/dl (6.4-8.2) L 06/16/17 23:40 Albumin 2.9 g/dl (3.4-5.0) L 06/16/17 23:40 EKG: STOOL OCCULT: CXR: Mild Cardiomegaly, Atelectesis L. Lung base, ? pnuemonic infilterates, FU CXR ASSESSMENT AND PLAN: 76 F with Pmhx. of pancreatic ca, s/p RT/CHEMO with duodenal stent, choledocholithiasis s/p CBD stent, who presents with R. upper back pain, being admitted for Anemia 1.) Anemia, Normocytic/LGIB - GI consult - NPO - Fe Studies, B12, Folate - Stool Occult - Transfuse KEEP HgG>7 - Tpe & Screen - Coags 2.) R. Scapular pain - XRAY - FU outpt. PET ro mets 3.) Hx. of Pancreatic Ca - FU Heme onc 4.) Ptosis - Had outpt. LEE- Obtain Records - States she would like second opinion by Neuro here 5.) Dvt Ppx - SCDs Place in Twist
[2017-06-17] MEDS ORDERED: ACETAMINOPHEN 1000 MG/100 ML VIAL (NON FORMULARY) IVPB ONE (02:19)
--- NOTE | 2017-06-17 02:25 | MSN ---
Admitting History and Physical - Admission Chief Complaint: R upper back pain History of Present Illness: Geovanna Patricio is a 76 year old female with a PMHx of HTN, DM, GERD, HLD, choledocholithiasis, pancreatic CA (with ERCP x2 and CBD stent placement, completed chemo/radio in early April) who presented with R upper back pain and weakness. Patient stated that she had been having weakness and non-radiating pain for last 4-5 days and stated that the pain had gotten as bad as 10/10. She took tramadol and tylenol with no relief of symptoms. Patient denied trauma to the shoulder. Patient stated that she has migratory joint pains, sciatica-like pain in the R leg. Patient stated that she has ptosis of the left eye that started 4-5 days ago which is being worked up by an outpatient neurologist but wants a second opinion. Patient had previously received blood transfusion 2 weeks prior when it was discovered that her H/H was low. Currently endorses R shoulder pain 3/10, weakness. Patient denied chest pain, shortness of breath, abd pain, melena, changes in stool, headache, n/v/c/d. History Source: Patient Limitations to Obtaining History: No Limitations - Past Medical History Cardiovascular: Yes: HTN, Hyperlipdemia Gastrointestinal: Yes: Cancer (pancreatic CA (s/p chemo and radiation finished in April)), GERD Hepatobiliary: Yes: Choledocholithiasis Endocrine: Yes: Diabetes Mellitus - Past Surgical History Additional Past Surgical History: ERCP - Smoking History Smoking history: Unknown if ever smoked Have you smoked in the past 12 months: No Aproximately how many cigarettes per day: 0 - Alcohol/Substance Use Hx Alcohol Use: No Home Medications - Allergies Allergies/Adverse Reactions: Allergies Allergy/AdvReac Type Severity Reaction Status Date / Time shellfish derived Allergy Intermediate Verified 06/17/17 02:34 Iodinated Contrast- Oral and Allergy Verified 06/17/17 02:29 IV Dye - Home Medications Home Medications: Ambulatory Orders Amlodipine Besylate [Norvasc -] 10 mg PO HS 11/23/15 Lipase/Protease/Amylase [Rosa Sanches 24,000 Units Capsule] 2 each PO TID 09/01/16 Esomeprazole Magnesium [Nexium 24Hr] 40 mg PO DAILY 04/22/17 Insulin Glargine,Hum.rec.anlog [Lantus] 10 unit SQ HS 04/22/17 Acetaminophen [Tylenol] 650 mg PO QID PRN 06/16/17 Tramadol HCl [Ultram] 50 mg PO ASDIR PRN 06/16/17 Review of Systems - Review of Systems Constitutional: reports: Lethargy, Weakness Eyes: reports: Other (ptosis) HENT: reports: No Symptoms Neck: reports: Pain on Movement Cardiovascular: reports: No Symptoms Respiratory: reports: No Symptoms Gastrointestinal: reports: No Symptoms Genitourinary: reports: No Symptoms Breasts: reports: No Symptoms Reported Musculoskeletal: reports: Back Pain (R upper back), Joint Pain Integumentary: reports: Lesions (on R hand on medial side) Neurological: reports: No Symptoms Endocrine: reports: No Symptoms Hematology/Lymphatic: reports: No Symptoms Psychiatric: reports: No Symptoms Physical Examination Vital Signs: Vital Signs Temperature 98 F 06/16/17 20:53 Pulse Rate 98 H 06/16/17 20:53 Respiratory Rate 20 06/16/17 20:53 Blood Pressure 151/47 06/16/17 20:53 O2 Sat by Pulse Oximetry (%) 99 06/16/17 20:53 Constitutional: Yes: Well Nourished, Mild Distress Eyes: Yes: PERRL, Ptosis HENT: Yes: WNL, Atraumatic, Normocephalic Neck: Yes: Trachea Midline, Tenderness Cardiovascular: Yes: WNL, Regular Rate and Rhythm, S1, S2. No: JVD, Gallop, Murmur Respiratory: Yes: WNL, Regular, CTA Bilaterally Gastrointestinal: Yes: Normal Bowel Sounds, Soft, Hemorrhoids (external seen), Tenderness ...Rectal Exam: Yes: Guaiac Positive, Hemorrhoids/External Musculoskeletal: Yes: Back Pain (to movement and palpation) Extremities: Yes: WNL Edema: No Peripheral Pulses WNL: Yes Peripheral Pulses: Left Radial: 2+, Right Radial: 2+, Left Doralis Pedis: 2+, Right Dorsalis Pedis: 2+ Integumentary: Yes: WNL Neurological: Yes: WNL, Alert, Oriented, Cran Nerves II-XII Intact. No: Loss of Sensation, Numbness, Paresthesia ...Motor Strength: WNL Psychiatric: Yes: WNL, Alert, Oriented Labs: CBC, BMP 06/16/17 23:40 06/16/17 23:40 Problem List - Problems (1) Anemia Code(s): D64.9 - ANEMIA, UNSPECIFIED Qualifiers: Anemia type: unspecified type Qualified Code(s): D64.9 - Anemia, unspecified (2) Back pain Code(s): M54.9 - DORSALGIA, UNSPECIFIED Qualifiers: Back pain location: thoracic back pain Chronicity: unspecified Back pain laterality: right Qualified Code(s): M54.6 - Pain in thoracic spine (3) Pancreatic cancer Code(s): C25.9 - MALIGNANT NEOPLASM OF PANCREAS, UNSPECIFIED Assessment/Plan Patient is a 76y/o female with a PMHx of HTN, DM, GERD, HLD, choledocholithiasis , pancreatic CA that was admitted with R back pain/shoulder and anemia. R back and shoulder pain- likely musculoskeletal due to decreased ROM, pain with palpation - R shoulder x-ray ordered - In ED, patient received ibuprofen and percocet - pain controlled with IV acetaminophen 1000mg once and acetaminophen 650mg q6h prn Anemia - likely due to GI bleed vs complication due to pancreatic malignancy - H/H 5.4/16.6 - 2 units PRBCs ordered - repeat CBC ordered after transfusion - FOBT positive - iron studies, B12, folate, magnesium - GI consulted, [facility] appreciated - Heme/Onc consulted, Dr. Cote, recs appreciated - Protonix 40mg IV Pancreatic Cancer - f/u outpatient - creon 48,000 daily Ptosis - had outpatient follow up - patient requesting second opinion for ptosis - neurology consulted, Dr. Boucher, recfransisco appreciated HTN - Norvasc 10mg daily DM - ISS F/E/N - NPO - electrolytes within normal limits - replete as necessary DVT PPx - out of bed as tolerated Disposition - observation admission
--- NOTE | 2017-06-17 02:37 | HP ---
CHIEF COMPLAINT: weakness and R shoulder pain HISTORY OF PRESENT ILLNESS: 76 year old female with a PMHx of HTN, DM, GERD, HLD, choledocholithiasis, pancreatic CA (with ERCP x2 and CBD stent placement, completed chemo/radio in early April) who presented with 10/10, nonradiating, R scapular pain and weakness over the last 4-5 days. Patient also reports dizziness and lightheadedness. She took tramadol and tylenol with no relief of symptoms. Patient stated that she has migratory joint pains, sciatica-like pain in the R leg. Patient says she has ptosis of the left eye that started 4-5 days ago which is being worked up by an outpatient neurologist but wants a second opinion. Patient had previously received blood transfusion 2 weeks prior when it was discovered that her H/H was low. Says she had similar symptoms during that time. Patient denies blood in stool, melena, hemoptysis, chest pain, shortness of breath, abd pain, headache, n/v/c/d. Recent Travel: denies PAST MEDICAL HISTORY: per hpi Social History: Smoking: denies Alcohol: denies Drugs: denies Family History: Allergies shellfish derived Allergy (Intermediate, Verified 09/01/16 16:29) Iodinated Contrast- Oral and IV Dye Allergy (Verified 06/17/17 02:29) HOME MEDICATIONS: Home Medications Medication Instructions Recorded Amlodipine Besylate [Norvasc -] 10 mg PO HS 11/23/15 Lipase/Protease/Amylase [Creon Dr 2 each PO TID 09/01/16 24,000 Units Capsule] Esomeprazole Magnesium [Nexium 40 mg PO DAILY 04/22/17 24Hr] Insulin Glargine,Hum.rec.anlog 10 unit SQ HS 04/22/17 [Lantus] Acetaminophen [Tylenol] 650 mg PO QID PRN 06/16/17 Tramadol HCl [Ultram] 50 mg PO ASDIR PRN 06/16/17 REVIEW OF SYSTEMS CONSTITUTIONAL: generalized weakness, malaise Absent: fever, chills, diaphoresis, loss of appetite, weight change HEENT: Absent: rhinorrhea, nasal congestion, throat pain, throat swelling, difficulty swallowing, mouth swelling, ear pain, eye pain, visual changes CARDIOVASCULAR: Absent: chest pain, syncope, palpitations, irregular heart rate, peripheral edema RESPIRATORY: Absent: cough, shortness of breath, dyspnea with exertion, orthopnea, wheezing, stridor, hemoptysis GASTROINTESTINAL: Absent: abdominal pain, abdominal distension, nausea, vomiting, diarrhea, constipation, melena, hematochezia GENITOURINARY: Absent: dysuria, frequency, urgency, hesitancy, hematuria, flank pain, genital pain MUSCULOSKELETAL: Absent: myalgia, arthralgia, joint swelling, back pain, neck pain SKIN: Absent: rash, itching, pallor HEMATOLOGIC/IMMUNOLOGIC: Absent: easy bleeding, easy bruising, lymphadenopathy, frequent infections ENDOCRINE: Absent: unexplained weight gain, unexplained weight loss, heat intolerance, cold intolerance NEUROLOGIC: Absent: headache, focal weakness or paresthesias, dizziness, unsteady gait, seizure, mental status changes, bladder or bowel incontinence PSYCHIATRIC: Absent: anxiety, depression, suicidal or homicidal ideation, hallucinations. PHYSICAL EXAMINATION Vital Signs - 24 hr 06/16/17 20:53 Temperature 98 F Pulse Rate 98 H Respiratory 20 Rate Blood Pressure 151/47 O2 Sat by Pulse 99 Oximetry (%) GENERAL: a/o x 3, lethargic HEAD: Normal with no signs of trauma. EYES: pale conjunctiva, L Eye ptosis EARS, NOSE, THROAT: oropharynx clear without exudates. Moist mucous membranes. NECK: Normal range of motion, supple without lymphadenopathy, JVD, or masses. LUNGS: Breath sounds equal, clear to auscultation bilaterally. No wheezes, and no crackles. No accessory muscle use. HEART: Regular rate and rhythm, normal S1 and S2 without murmur, rub or gallop. ABDOMEN: Soft, nontender, not distended, normoactive bowel sounds, no guarding, no rebound, no masses. UPPER EXTREMITIES: 2+ pulses, warm, well-perfused. No cyanosis. No clubbing. No peripheral edema. BACK: mild diffuse tenderness to the R scapula LOWER EXTREMITIES: 2+ pulses, warm, well-perfused. No calf tenderness. No peripheral edema. NEUROLOGICAL: Cranial nerves II-XII intact. Normal speech. Rectal: external hemorrhoid, nontender, normal tone, bright red blood on finger Laboratory Results - last 24 hr 06/16/17 06/16/17 06/16/17 21:55 23:40 23:40 WBC 9.0 D RBC 1.85 L D Hgb 5.4 L* D Hct 16.6 L D MCV 89.6 MCH 29.1 MCHC 32.5 RDW 15.1 D Plt Count 217 MPV 7.1 L Neutrophils % 85.8 H D Lymphocytes % 5.1 L D Monocytes % 7.9 Eosinophils % 1.0 Basophils % 0.2 PT with INR INR PTT (Actin FS) Sodium 140 Potassium 3.9 Chloride 103 Carbon Dioxide 26 Anion Gap 11 BUN 16 Creatinine 0.5 L Creat Clearance w eGFR > 60 POC Glucometer Random Glucose 155 H Calcium 8.2 L Total Bilirubin 0.3 D AST 14 L ALT 11 L Alkaline Phosphatase 145 H Creatine Kinase Troponin I Total Protein 6.2 L Albumin 2.9 L Urine Color Ltyellow Urine Appearance Slcloudy Urine pH 6.0 Ur Specific [place] 1.013 Urine Protein Negative Urine Glucose (UA) Negative Urine Ketones Negative Urine Blood Negative Urine Nitrite Negative Urine Bilirubin Negative Urine Urobilinogen Negative Ur Leukocyte Esterase Negative Stool Occult Blood Blood Type Antibody Screen Crossmatch 06/16/17 06/17/17 06/17/17 23:45 00:08 00:08 WBC RBC Hgb Hct MCV MCH MCHC RDW Plt Count MPV Neutrophils % Lymphocytes % Monocytes % Eosinophils % Basophils % PT with INR 11.50 INR 1.02 PTT (Actin FS) 24.4 L Sodium Potassium Chloride Carbon Dioxide Anion Gap BUN Creatinine Creat Clearance w eGFR POC Glucometer Random Glucose Calcium Total Bilirubin AST ALT Alkaline Phosphatase Creatine Kinase 20 L Troponin I 0.03 Total Protein Albumin Urine Color Urine Appearance Urine pH Ur Specific [place] Urine Protein Urine Glucose (UA) Urine Ketones Urine Blood Urine Nitrite Urine Bilirubin Urine Urobilinogen Ur Leukocyte Esterase Stool Occult Blood Blood Type B POSITIVE Antibody Screen Negative Crossmatch See Detail 06/17/17 06/17/17 01:43 02:00 WBC RBC Hgb Hct MCV MCH MCHC RDW Plt Count MPV Neutrophils % Lymphocytes % Monocytes % Eosinophils % Basophils % PT with INR INR PTT (Actin FS) Sodium Potassium Chloride Carbon Dioxide Anion Gap BUN Creatinine Creat Clearance w eGFR POC Glucometer [phone] Random Glucose Calcium Total Bilirubin AST ALT Alkaline Phosphatase Creatine Kinase Troponin I Total Protein Albumin Urine Color Urine Appearance Urine pH Ur Specific [place] Urine Protein Urine Glucose (UA) Urine Ketones Urine Blood Urine Nitrite Urine Bilirubin Urine Urobilinogen Ur Leukocyte Esterase Stool Occult Blood Positive Blood Type Antibody Screen Crossmatch ASSESSMENT/PLAN: 76 year old female with a PMHx of HTN, DM, GERD, HLD, choledocholithiasis, pancreatic CA (with ERCP x2 and CBD stent placement, completed chemo/radio in early April) who presented with R upper back pain and weakness. #Anemia -Normocytic/Lower GI Bleed -Hgb 5.4 -Iron studies -Positive FOBT -2 Units PRBC -GI consulted: Dr. Draper -Hemo/onc consulted -b12, folate -keep Hgb >7 -Monitor CBC #R. scapular pain -X ray shoulder -follow up outpatient to rule out mets #Ptosis -had outpatient workup. obtain records -wants second opinion -Neuro consulted: Dr. Boucher #Pancreatic Cancer -FU outpatient heme/onc #DM -BGM -ISS #PPX -hold due to anemia -SCDs -Obs Visit type - Emergency Visit Emergency Visit: Yes ED Registration Date: 06/17/17 Care time: The patient presented to the Emergency Department on the above date and was hospitalized for further evaluation of their emergent condition. - New Patient This patient is new to me today: Yes Date on this admission: 06/17/17 - Critical Care Critical Care patient: No Hospitalist Screening - Colonoscopy Questionnaire Colonoscopy Questionnaire: Colonoscopy Questionnaire - Patient: 50 - 75 years old and never had a screening colonoscopy: Unknown History of colon or rectal polyps, or CA: Unknown History of IBD, Crohn's disease or UC: Unknown History of abdominal radiation therapy as a child: Unknown - Relative: 1 with colon or rectal CA, or polyps at age 60 or younger: Unknown Colon or rectal CA diagnosed at age 45 or younger: Unknown Multiple relatives with colon or rectal CA: Unknown - Outcome: Screening Result: Negative Screen
[2017-06-17] MEDS ORDERED: ACETAMINOPHEN INJECTION 100 ML IVPB ONE (02:54)
[2017-06-17 04:13] VITALS: BMI 18.8
[2017-06-17] MEDS ORDERED: PATIENT'S OWN MEDICATION (NON-FORMULARY) (Lipase/Protease/Amylase [Creon Dr 24,000 Units C PO SCH (06:00)
[2017-06-17] MEDS: INSULIN SLIDING SCALE (NOVOLOG) 1 VIAL SQ SCH ×6 (06:12→23:09)
[2017-06-17 08:18] LABS: BASO % 0.4 % (0-2.0); EOS % 1.6 % (0-4.5); HEMATOCRIT 19.2 % (32.4-45.2); LYMPH % 7.5 % (8-40); MCH 29.6 pg (25.7-33.7); MCHC 33.2 g/dl (32.0-36.0); MEAN CELL VOLUME 89.2 fl (80-96); MEAN PLT VOLUME 6.7 fl (7.5-11.1); MONO % 9.7 % (3.8-10.2); NEUT % 80.8 % (42.8-82.8); PLATELET COUNT 197 K/MM3 (134-434); RBC 2.15 M/mm3 (3.60-5.2); RDW 14.7 % (11.6-15.6)
[2017-06-17 08:28] LABS: INR 1.04 (0.82-1.09); PROTHROMBIN TIME (PATIENT) 11.7 SEC (9.7-13.0)
[2017-06-17 08:50] LABS: ALBUMIN 2.6 g/dl (3.4-5.0); ANION GAP 5 (8-16); BLOOD UREA NITROGEN 14 mg/dL (7-18); CALCIUM 7.9 mg/dL (8.5-10.1); CHLORIDE 107 mmol/L (98-107); CO2 27 mmol/L (21-32); CREATININE 0.4 mg/dL (0.55-1.02); GLUCOSE,RANDOM 114 mg/dL (74-106); MAGNESIUM 2.2 mg/dL (1.8-2.4); PHOSPHOROUS 3.5 mg/dL (2.5-4.9); POTASSIUM 3.8 mmol/L (3.5-5.1); SGOT/AST 12 U/L (15-37); SGPT/ALT 10 U/L (12-78); SODIUM 139 mmol/L (136-145)
[2017-06-17 08:52] LABS: ALK PHOS 131 U/L (45-117); BILIRUBIN,TOTAL 0.5 mg/dL (0.2-1.0); TOT PROT 5.7 g/dl (6.4-8.2)
[2017-06-17 08:59] LABS: HEMOGLOBIN 6.4 GM/dL (10.7-15.3)
--- NOTE | 2017-06-17 09:26 | PN ---
Progress Note, Physician Chief Complaint: AWAKE C/O BEING HUNGRY DENIES FEVERS CHILLS CHART REVIEWED - Current Medication List Current Medications: Active Medications Acetaminophen (Tylenol -) 650 mg PO Q6H PRN PRN Reason: PAIN LEVEL 4 - 6 Amlodipine Besylate (Norvasc -) 10 mg PO HS ALVIN Insulin Aspart (Novolog Vial Sliding Scale -) 1 vial SQ ACHS ALVIN PRN Reason: Protocol Last Admin: 06/17/17 06:17 Dose: Not Given Pancrelipase (Creon Dr 36,000 Units Capsule) 1 cap PO TIDCM ALVIN Pancrelipase (Creon Dr 6,000 Units Capsule) 2 cap PO TIDCM ALVIN Pantoprazole Sodium (Protonix Iv) 40 mg IVPUSH DAILY [facility] - Objective Vital Signs: Vital Signs Temperature 97.9 F 06/17/17 06:44 Pulse Rate 76 06/17/17 06:44 Respiratory Rate 18 06/17/17 06:44 Blood Pressure 129/67 06/17/17 06:44 O2 Sat by Pulse Oximetry (%) 96 06/17/17 03:55 Constitutional: Yes: Mild Distress Eyes: Yes: WNL Neck: Yes: WNL Cardiovascular: Yes: WNL Respiratory: Yes: WNL Gastrointestinal: Yes: WNL Genitourinary: Yes: WNL Edema: No Peripheral Pulses WNL: Yes Integumentary: Yes: WNL Wound/Incision: Yes: Clean/Dry Neurological: Yes: WNL ...Motor Strength: WNL Psychiatric: Yes: Agitated Labs: CBC, BMP 06/17/17 08:05 INR, PTT INR 1.04 (0.82-1.09) 06/17/17 08:05 Problem List - Problems (1) Anemia Code(s): D64.9 - ANEMIA, UNSPECIFIED Qualifiers: Anemia type: unspecified type Qualified Code(s): D64.9 - Anemia, unspecified Assessment/Plan TRANSFUSE PRBC NEEDED CHECK CBC TONIGHT AND AGAIN IN MORNING GI EVAL ONCOLOGY F/U
--- NOTE | 2017-06-17 09:34 | CONSULT ---
Consult - text type - Consultation Consultation Note: Neurology CHIEF COMPLAINT: Ptosis, weakness, R shoulder pain HISTORY OF PRESENT ILLNESS: 76 year old female with a PMHx of HTN, DM, GERD, HLD, choledocholithiasis, pancreatic CA (with ERCP x2 and CBD stent placement, completed chemo/radio in early April) who presented with 10/10, nonradiating, R scapular pain and weakness over the last 4-5 days. Patient also reportsed dizziness and lightheadedness. She took tramadol and tylenol with no relief of symptoms. Patient stated that she has migratory joint pains, sciatica-like pain in the R leg. Patient says she has ptosis of the left eye that started 4-5 days ago which is being worked up by an outpatient neurologist and had CT head which was negative. She also had lab testing for MG and Lambert Eaton. She did not have MRI or MRA and discussed having this with her. Discussed rational to checking for CVA and vascular malformations and was eventually in agreement but wants to do it at [place] as outpatient because all of her imaging records are there. Patient had previously received blood transfusion 2 weeks prior when it was discovered that her H/H was low. Says she had similar symptoms during that time. She does report pain in R shoulder, not likely cervical radiculopathy, but seems musculoskeletal in nature. Recent Travel: denies PAST MEDICAL HISTORY: per hpi Social History: Smoking: denies Alcohol: denies Drugs: denies Family History: Allergies shellfish derived Allergy (Intermediate, Verified 09/01/16 16:29) Iodinated Contrast- Oral and IV Dye Allergy (Verified 06/17/17 02:29) HOME MEDICATIONS: Home Medications Medication Instructions Recorded Amlodipine Besylate [Norvasc -] 10 mg PO HS 11/23/15 Lipase/Protease/Amylase [Creon Dr 2 each PO TID 09/01/16 24,000 Units Capsule] Esomeprazole Magnesium [Nexium 40 mg PO DAILY 04/22/17 24Hr] Insulin Glargine,Hum.rec.anlog 10 unit SQ HS 04/22/17 [Lantus] Acetaminophen [Tylenol] 650 mg PO QID PRN 06/16/17 Tramadol HCl [Ultram] 50 mg PO ASDIR PRN 06/16/17 REVIEW OF SYSTEMS CONSTITUTIONAL: generalized weakness, malaise Absent: fever, chills, diaphoresis, loss of appetite, weight change HEENT: Absent: rhinorrhea, nasal congestion, throat pain, throat swelling, difficulty swallowing, mouth swelling, ear pain, eye pain, visual changes CARDIOVASCULAR: Absent: chest pain, syncope, palpitations, irregular heart rate, peripheral edema RESPIRATORY: Absent: cough, shortness of breath, dyspnea with exertion, orthopnea, wheezing, stridor, hemoptysis GASTROINTESTINAL: Absent: abdominal pain, abdominal distension, nausea, vomiting, diarrhea, constipation, melena, hematochezia GENITOURINARY: Absent: dysuria, frequency, urgency, hesitancy, hematuria, flank pain, genital pain MUSCULOSKELETAL: Absent: myalgia, arthralgia, joint swelling, back pain, neck pain SKIN: Absent: rash, itching, pallor HEMATOLOGIC/IMMUNOLOGIC: Absent: easy bleeding, easy bruising, lymphadenopathy, frequent infections ENDOCRINE: Absent: unexplained weight gain, unexplained weight loss, heat intolerance, cold intolerance NEUROLOGIC: Absent: headache, focal weakness or paresthesias, dizziness, unsteady gait, seizure, mental status changes, bladder or bowel incontinence PSYCHIATRIC: Absent: anxiety, depression, suicidal or homicidal ideation, hallucinations. PHYSICAL EXAMINATION Vital Signs Period Temp Pulse Resp BP Sys/[place] Pulse Ox Last 24 Hr 97.8 F-98.7 F 76-100 16-20 124-151/47-71 96-99 GENERAL: a/o x 3, lethargic HEAD: Normal with no signs of trauma. EYES: pale conjunctiva, L Eye ptosis EARS, NOSE, THROAT: oropharynx clear without exudates. Moist mucous membranes. NECK: Normal range of motion, supple without lymphadenopathy, JVD, or masses. LUNGS: Breath sounds equal, clear to auscultation bilaterally. No wheezes, and no crackles. No accessory muscle use. HEART: Regular rate and rhythm, normal S1 and S2 without murmur, rub or gallop. ABDOMEN: Soft, nontender, not distended, normoactive bowel sounds, no guarding, no rebound, no masses. UPPER EXTREMITIES: 2+ pulses, warm, well-perfused. No cyanosis. No clubbing. No peripheral edema. BACK: mild diffuse tenderness to the R scapula LOWER EXTREMITIES: 2+ pulses, warm, well-perfused. No calf tenderness. No peripheral edema. NEUROLOGICAL: L eye ptosis noted, Normal speech, sensory intact, strenght intact though atrophy and limited by effort, gait deferred Laboratory Results - last 24 hr 06/16/17 06/16/17 06/16/17 21:55 23:40 23:40 WBC 9.0 D RBC 1.85 L D Hgb 5.4 L* D Hct 16.6 L D MCV 89.6 MCH 29.1 MCHC 32.5 RDW 15.1 D Plt Count 217 MPV 7.1 L Neutrophils % 85.8 H D Lymphocytes % 5.1 L D Monocytes % 7.9 Eosinophils % 1.0 Basophils % 0.2 PT with INR INR PTT (Actin FS) Sodium 140 Potassium 3.9 Chloride 103 Carbon Dioxide 26 Anion Gap 11 BUN 16 Creatinine 0.5 L Creat Clearance w eGFR > 60 POC Glucometer Random Glucose 155 H Calcium 8.2 L Total Bilirubin 0.3 D AST 14 L ALT 11 L Alkaline Phosphatase 145 H Creatine Kinase Troponin I Total Protein 6.2 L Albumin 2.9 L Urine Color Ltyellow Urine Appearance Slcloudy Urine pH 6.0 Ur Specific [place] 1.013 Urine Protein Negative Urine Glucose (UA) Negative Urine Ketones Negative Urine Blood Negative Urine Nitrite Negative Urine Bilirubin Negative Urine Urobilinogen Negative Ur Leukocyte Esterase Negative Stool Occult Blood Blood Type Antibody Screen Crossmatch 06/16/17 06/17/17 06/17/17 23:45 00:08 00:08 WBC RBC Hgb Hct MCV MCH MCHC RDW Plt Count MPV Neutrophils % Lymphocytes % Monocytes % Eosinophils % Basophils % PT with INR 11.50 INR 1.02 PTT (Actin FS) 24.4 L Sodium Potassium Chloride Carbon Dioxide Anion Gap BUN Creatinine Creat Clearance w eGFR POC Glucometer Random Glucose Calcium Total Bilirubin AST ALT Alkaline Phosphatase Creatine Kinase 20 L Troponin I 0.03 Total Protein Albumin Urine Color Urine Appearance Urine pH Ur Specific [place] Urine Protein Urine Glucose (UA) Urine Ketones Urine Blood Urine Nitrite Urine Bilirubin Urine Urobilinogen Ur Leukocyte Esterase Stool Occult Blood Blood Type B POSITIVE Antibody Screen Negative Crossmatch See Detail 06/17/17 06/17/17 01:43 02:00 WBC RBC Hgb Hct MCV MCH MCHC RDW Plt Count MPV Neutrophils % Lymphocytes % Monocytes % Eosinophils % Basophils % PT with INR INR PTT (Actin FS) Sodium Potassium Chloride Carbon Dioxide Anion Gap BUN Creatinine Creat Clearance w eGFR POC Glucometer [phone] Random Glucose Calcium Total Bilirubin AST ALT Alkaline Phosphatase Creatine Kinase Troponin I Total Protein Albumin Urine Color Urine Appearance Urine pH Ur Specific [place] Urine Protein Urine Glucose (UA) Urine Ketones Urine Blood Urine Nitrite Urine Bilirubin Urine Urobilinogen Ur Leukocyte Esterase Stool Occult Blood Positive Blood Type Antibody Screen Crossmatch ASSESSMENT/PLAN: 76 year old female with a PMHx of HTN, DM, GERD, HLD, choledocholithiasis, pancreatic CA (with ERCP x2 and CBD stent placement, completed chemo/radio in early April) who presented with 10/10, nonradiating, R scapular pain and weakness over the last 4-5 days. Patient also reportsed dizziness and lightheadedness. She took tramadol and tylenol with no relief of symptoms. Patient stated that she has migratory joint pains, sciatica-like pain in the R leg. Patient says she has ptosis of the left eye that started 4-5 days ago which is being worked up by an outpatient neurologist and had CT head which was negative. She also had lab testing for MG and Lambert Eaton. She did not have MRI or MRA and discussed having this with her. Discussed rational to checking for CVA and vascular malformations and was eventually in agreement but wants to do it at [place] as outpatient because all of her imaging records are there. Patient had previously received blood transfusion 2 weeks prior when it was discovered that her H/H was low. Says she had similar symptoms during that time. She does report pain in R shoulder, not likely cervical radiculopathy, but seems musculoskeletal in nature. Transfuses as needed, followup CBC, Gi evaluation if desired. REcommended MRI and MRA but patient desires as outpatient. INcreased hydration recommended, fall precautions. DVT ppx if not ambulating.
[2017-06-17] MEDS ORDERED: PT OWN MED DRAWER 7, Y5N ONE (09:42)
[2017-06-17] MEDS: LIPASE/PROTEASE/AMYLASE 36,000 UNIT CAPSULE PO SCH ×3 (09:45→18:03)
[2017-06-17] MEDS: LIPASE/PROTEASE/AMYLASE 6,000 UNIT CAPSULE PO SCH ×3 (09:45→18:04)
[2017-06-17] MEDS: PANTOPRAZOLE SODIUM 40 MG VIAL IVPUSH SCH (09:51)
[2017-06-17] MEDS ORDERED: PANTOPRAZOLE 40 MG TABLET (FP) PO SCH (10:00)
--- NOTE | 2017-06-17 10:14 | EKG ---
Test Reason : Blood Pressure : / mmHG Vent. Rate : 092 BPM Atrial Rate : 092 BPM P-R Int : 216 ms QRS Dur : 074 ms QT Int : 374 ms P-R-T Axes : 045 022 059 degrees QTc Int : 462 ms SINUS RHYTHM WITH 1ST DEGREE A-V BLOCK OTHERWISE NORMAL ECG WHEN COMPARED WITH ECG OF 22-APR-2017 15:18, NONSPECIFIC T WAVE ABNORMALITY NO LONGER EVIDENT IN INFERIOR LEADS NONSPECIFIC T WAVE ABNORMALITY NO LONGER EVIDENT IN ANTEROLATERAL LEADS Confirmed by MD JAROD, LISANDRA ([id number]) on 06/17/2017 10:14:37 AM Referred By: Confirmed By:LISANDRA OLIVERA MD
[2017-06-17] MEDS: SODIUM CHLORIDE 1,000 ML IV SCH ×2 (12:40→17:07)
--- NOTE | 2017-06-17 18:34 | CONSULT ---
Consult - text type - Consultation Consultation Note: The patient is a 76 year old female, with a significant past medical history of HTN, HLD, GERD, DM, choledocholithiasis s/p ERCP x 2 and CBD stent, pancreatic CA s/p radiation and oral chemo (completed 02/2017) and duodenal stent who presents to the emergency department with upper back pain and generalized weakness for the past week. Patient reports pain is localized to the scapula, 9/ 10 in severity with no associated symptoms. Patient notes that the pain worsens when she lifts her R arm. Patient was also hospitalized at [facility] recently for workup of anemia and ptosis. No associated numbness/ tingling/weakness. Patient denies chest pain, palpitations, diaphoresis, headache or dizziness. Patient denies fever, chills, abdominal pain, nausea, vomit, diarrhea or constipation. Patient denies dysuria, frequency, urgency or hematuria. Patient denies sick contacts or recent travel. Allergies: shellfish Past surgical history:CBD stent, duodenum stent - Past Medical History Diabetes: Yes GI Disorders: Yes (pancreatic CA with RT, po chemo.) HTN: Yes Hypercholesterolemia: Yes Kidney Stones: Yes - Surgical History Abdominal Surgery: Yes (ercp) (cbd stent) - Suicide/Smoking/Psychosocial Hx Smoking History: Unknown if ever smoked - Past Medical History Allergies/Adverse Reactions: Allergies Allergy/AdvReac Type Severity Reaction Status Date / Time shellfish derived Allergy Intermediate Verified 06/17/17 02:34 Iodinated Contrast- Oral and Allergy Verified 06/17/17 02:29 IV Dye Home Medications: Ambulatory Orders Amlodipine Besylate [Norvasc -] 10 mg PO HS 11/23/15 Lipase/Protease/Amylase [[place] 24,000 Units Capsule] 2 each PO TID 09/01/16 Esomeprazole Magnesium [Nexium 24Hr] 40 mg PO DAILY 04/22/17 Insulin Glargine,Hum.rec.anlog [Lantus] 10 unit SQ HS 04/22/17 Acetaminophen [Tylenol] 650 mg PO QID PRN 06/16/17 Tramadol HCl [Ultram] 50 mg PO ASDIR PRN 06/16/17 Active Medications Generic Name Dose Route Start Last Admin Trade Name Freq PRN Reason Stop Dose Admin Acetaminophen 650 mg 06/17/17 08:00 Tylenol - PO Q6H PRN PAIN LEVEL 4 - 6 Amlodipine Besylate 10 mg 06/17/17 22:00 Norvasc - PO HS ALVIN Sodium Chloride 1,000 mls @ 83 mls/hr 06/17/17 09:30 06/17/17 17:07 Normal Saline - IV 83 mls/hr ASDIR ALVIN Administration Insulin Aspart 1 vial 06/17/17 07:00 06/17/17 16:49 Novolog Vial Sliding Scale - SQ Not Given ACHS ALVIN Protocol Pancrelipase 1 cap 06/17/17 08:00 06/17/17 18:03 Creon 36,000 Units Capsule PO Not Given TIDCM ALVIN Pancrelipase 2 cap 06/17/17 08:00 06/17/17 18:04 Creon 6,000 Units Capsule PO Not Given TIDCM ALVIN Pantoprazole Sodium 40 mg 06/17/17 10:00 06/17/17 09:51 Protonix Iv IVPUSH 40 mg DAILY ALVIN Administration - Vital Signs Last Vital Signs Temp Pulse Resp BP Pulse Ox 98.1 F 90 18 129/54 96 06/17/17 02:35 06/17/17 02:35 06/17/17 02:35 06/17/17 02:35 06/17/17 02:35 - Physical Exam GENERAL: The patient is awake, alert, and fully oriented, LUNGS: Mild crackles at the L base. HEART: Regular rate and rhythm, normal S1 and S2 without murmur, rub or gallop. ABDOMEN: Soft, nontender, BACK: mild diffuse tenderness to the R scapula, EXTREMITIES: Normal range of motion, no edema. A/P 76y F HTN, GERD, choledocholithiasis, recent dx of pancreatic ca (s/p ERCP x2 and CBD stent placement; s/p radiation and xeloda presents with symptomatic anemia s/p 2 units PRBCs GI follow up advancing diet Also with right scapular pain/left eye ptosis Will check MRI brain/ C and T spine Neuro f/u Will discuss with primary oncologist Dr. rocha
--- NOTE | 2017-06-17 19:42 | CON.GI ---
Consult Consult Specialty:: Gastroenterology Referred by:: Dr young - History of Present Illness History of Present Illness: 76 y/o female with pancreatic cancer,s/p CBD metallic stent and duodenal stent inserted by Dr Perez was admitted with neck pain and new onset ptosis. She denies nausea, vomiting and abdominal pain. SHe is presently receiving radiation treatment. SHe was diagnosed to have severe anemia which occurred after the radiation treatment. Of concern is her new onset ptosis. - History Source History Provided By: Patient, Family Member (--) - Past Medical History Cardio/Vascular: Yes: HTN, Hyperlipdemia Gastrointestinal: Yes: Cancer (pancreatic CA (s/p chemo and radiation finished in April)), GERD Hepatobiliary: Yes: Choledocholithiasis Endocrine: Yes: Diabetes Mellitus - Alcohol/Substance Use Hx Alcohol Use: No - Smoking History Smoking history: Unknown if ever smoked Have you smoked in the past 12 months: No Aproximately how many cigarettes per day: 0 Home Medications - Allergies Allergies/Adverse Reactions: Allergies Allergy/AdvReac Type Severity Reaction Status Date / Time shellfish derived Allergy Intermediate Verified 06/17/17 02:34 Iodinated Contrast- Oral and Allergy Verified 06/17/17 02:29 IV Dye - Home Medications Home Medications: Ambulatory Orders Amlodipine Besylate [Norvasc -] 10 mg PO HS 11/23/15 Lipase/Protease/Amylase [Rosa Sanches 24,000 Units Capsule] 2 each PO TID 09/01/16 Esomeprazole Magnesium [Nexium 24Hr] 40 mg PO DAILY 04/22/17 Insulin Glargine,Hum.rec.anlog [Lantus] 10 unit SQ HS 04/22/17 Acetaminophen [Tylenol] 650 mg PO QID PRN 06/16/17 Tramadol HCl [Ultram] 50 mg PO ASDIR PRN 06/16/17 Physical Exam-GI Vital Signs: Vital Signs Temperature 98.1 F 06/17/17 16:30 Pulse Rate 87 06/17/17 16:30 Respiratory Rate 20 06/17/17 16:30 Blood Pressure 140/64 06/17/17 16:30 O2 Sat by Pulse Oximetry (%) 96 06/17/17 03:55 Constitutional: Yes: Well Nourished Eyes: Yes: Conjunctiva Clear HENT: Yes: Atraumatic Neck: Yes: Supple Cardiovascular: Yes: Regular Rate and Rhythm Respiratory: Yes: CTA Bilaterally ...Palpate: Yes: Soft. No: Firm/Rigid, Guarding, Hepatomegaly, Mass, Pulsatile Mass, Splenomegaly, Tenderness Labs: CBC, BMP 06/17/17 08:05 06/17/17 08:05 INR, PTT INR 1.04 (0.82-1.09) 06/17/17 08:05 Problem List - Problems (1) Anemia Assessment/Plan: most likely secondary to radiation vs occult gi bleeding R> transfuse to HGB greater than 9 Code(s): D64.9 - ANEMIA, UNSPECIFIED Qualifiers: Anemia type: unspecified type Qualified Code(s): D64.9 - Anemia, unspecified (2) Pancreatic cancer Assessment/Plan: R> continue radiation soft diet only in view of the presencew of external compression of the duodenum causing compression Code(s): C25.9 - MALIGNANT NEOPLASM OF PANCREAS, UNSPECIFIED
[2017-06-17 20:26] LABS: HEMATOCRIT 28.6 % (32.4-45.2); HEMOGLOBIN 9.6 GM/dL (10.7-15.3); MCH 30.1 pg (25.7-33.7); MCHC 33.6 g/dl (32.0-36.0); MEAN CELL VOLUME 89.6 fl (80-96); MEAN PLT VOLUME 7.4 fl (7.5-11.1); PLATELET COUNT 229 K/MM3 (134-434); RBC 3.19 M/mm3 (3.60-5.2); RDW 14.8 % (11.6-15.6); WHITE BLOOD COUNT 10.2 K/mm3 (4.0-10.0)
--- NOTE | 2017-06-17 20:56 | CONSULT ---
Consult - text type - Consultation Consultation Note: NEUROLOGY CONSULTATION is greatly appreciated: Events reviewed and discussed with Drs. Hurst and Bonny. 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 S/P CBD stents x 2, RT and ChemoRx. On amlodipine, lipases, nexium, insulin and tramadol for pain. Admiotted [facility] around [facility] for anemia requiring 2 units PRBC's. Since then, she has had progressive pain in the right mid-arm, right scapular. Over the last 4 or 5 days she has had left Ptosis without diplopia or visual loss. Breeding Technician suggested "Myasthenia gravis" or "Eaton -Lambert Syndrome." No eye pain. No headache. EXAM: Thin. neck supple. No spinal palpation tenderness. + focal tenderness over the right humerus (Shoulder XRay reviewed and proximal 2/3 of the humerus appears normal). NEURO: Awake, alert, MS/Speech: Normal Left ptosis. left pupil 2mm right 4mm. Full EOM's. Tongue mov'ts and gag are normal. Normal strength, tone and reflexes. Toes downgoing. No FTN dystaxia Sensory normal to vib. Romberg - Gait: Shuffling. R knee clifton. 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 R/O thoracic paraspinal lesion on the left. SUGGEST: Agree completely with MRI scans of Brain, cervical and thoracic spines. Consider Bone scan. Will follow with you. Thank you very much, Jerome Elizondo
[2017-06-17] MEDS: amLODIPine BESYLATE 10 MG TABLET (FP) PO SCH (22:02)
[2017-06-18] MEDS: INSULIN SLIDING SCALE (NOVOLOG) 1 VIAL SQ SCH ×4 (06:02→21:35)
[2017-06-18 07:03] LABS: HEMATOCRIT 25.1 % (32.4-45.2); HEMOGLOBIN 8.6 GM/dL (10.7-15.3); MCH 30.2 pg (25.7-33.7); MCHC 34.1 g/dl (32.0-36.0); MEAN CELL VOLUME 88.6 fl (80-96); MEAN PLT VOLUME 7.5 fl (7.5-11.1); PLATELET COUNT 198 K/MM3 (134-434); RBC 2.83 M/mm3 (3.60-5.2); RDW 14.5 % (11.6-15.6); WHITE BLOOD COUNT 9.4 K/mm3 (4.0-10.0)
[2017-06-18 07:30] LABS: ANION GAP 9 (8-16); BLOOD UREA NITROGEN 10 mg/dL (7-18); CALCIUM 8.2 mg/dL (8.5-10.1); CHLORIDE 104 mmol/L (98-107); CO2 27 mmol/L (21-32); CREATININE 0.3 mg/dL (0.55-1.02); GLUCOSE,RANDOM 108 mg/dL (74-106); POTASSIUM 3.8 mmol/L (3.5-5.1); SODIUM 140 mmol/L (136-145)
[2017-06-18 08:11] LABS: SERUM IRON SATURATION 8 % (15-55); TOTAL IRON BINDING CAPACITY 318 ug/dL (250-450); UIBC 294 ug/dL (118-369)
[2017-06-18] MEDS ORDERED: PT OWN MED DRAWER 7, Y5N ONE ×3 (08:13→17:52)
[2017-06-18] MEDS: ACETAMINOPHEN 325 MG TABLET (FP) PO PRN ×2 (09:15→15:29)
[2017-06-18] MEDS: PANTOPRAZOLE SODIUM 40 MG VIAL IVPUSH SCH (09:16)
[2017-06-18] MEDS: LIPASE/PROTEASE/AMYLASE 36,000 UNIT CAPSULE PO SCH ×3 (09:17→17:19)
[2017-06-18] MEDS: LIPASE/PROTEASE/AMYLASE 6,000 UNIT CAPSULE PO SCH ×3 (09:18→17:19)
--- NOTE | 2017-06-18 11:04 | PN ---
Progress Note, Physician Chief Complaint: ANEMIA PANCREATIC CA History of Present Illness: NAD, in bed wants to eat left eye ptosis Seen by Oncology Also seen by Dr Boucher and Caro- neurology pending MRI Call put out to Dr Isidro- patients outpatient oncologist at [facility] - Current Medication List Current Medications: Active Medications Acetaminophen (Tylenol -) 650 mg PO Q6H PRN PRN Reason: PAIN LEVEL 4 - 6 Last Admin: 06/18/17 09:15 Dose: 650 mg Amlodipine Besylate (Norvasc -) 10 mg PO HS ALVNI Last Admin: 06/17/17 22:02 Dose: Not Given Sodium Chloride (Normal Saline -) 1,000 mls @ 83 mls/hr IV ASDIR [facility] Last Admin: 06/17/17 17:07 Dose: 83 mls/hr Insulin Aspart (Novolog Vial Sliding Scale -) 1 vial SQ ACHS ALVIN PRN Reason: Protocol Last Admin: 06/18/17 06:02 Dose: Not Given Pancrelipase (Creon Dr 36,000 Units Capsule) 1 cap PO TIDCM [facility] Last Admin: 06/18/17 09:17 Dose: 1 cap Pancrelipase (Creon Dr 6,000 Units Capsule) 2 cap PO TIDCM ALVIN Last Admin: 06/18/17 09:18 Dose: 2 cap Pantoprazole Sodium (Protonix Iv) 40 mg IVPUSH DAILY [facility] Last Admin: 06/18/17 09:16 Dose: 40 mg - Objective Vital Signs: Vital Signs Temperature 99 F 06/18/17 05:45 Pulse Rate 90 06/18/17 05:45 Respiratory Rate 18 06/18/17 05:45 Blood Pressure 127/63 06/18/17 05:45 O2 Sat by Pulse Oximetry (%) 96 06/17/17 18:00 Constitutional: Yes: No Distress, Calm, Cachectic Cardiovascular: Yes: Regular Rate and Rhythm Respiratory: Yes: Regular Gastrointestinal: Yes: Soft, Hyperactive Bowel Sounds Musculoskeletal: Yes: Muscle Weakness Extremities: Yes: WNL Edema: No Peripheral Pulses WNL: Yes Neurological: Yes: Alert, Oriented Psychiatric: Yes: Alert, Oriented Labs: CBC, BMP 06/18/17 06:38 06/18/17 06:38 INR, PTT INR 1.04 (0.82-1.09) 06/17/17 08:05 Problem List - Problems (1) Anemia Code(s): D64.9 - ANEMIA, UNSPECIFIED Qualifiers: Anemia type: unspecified type Qualified Code(s): D64.9 - Anemia, unspecified (2) Pancreatic cancer Code(s): C25.9 - MALIGNANT NEOPLASM OF PANCREAS, UNSPECIFIED Assessment/Plan see problem list
[2017-06-18] MEDS ORDERED: INSULIN (NOVOLOG) ASPART 100 UNITS/ML 10ML VIAL ONE ×2 (12:05→17:53)
[2017-06-18] MEDS: SODIUM CHLORIDE 1,000 ML IV SCH (12:22)
[2017-06-18] MEDS: DOCUSATE SODIUM 100 MG CAPSULE (FP) PO SCH (15:29)
[2017-06-18] MEDS: AMINO ACIDS/PROTEIN HYDROLYS 30 ML LIQUID.PKT PO SCH (17:19)
[2017-06-18] MEDS: amLODIPine BESYLATE 10 MG TABLET (FP) PO SCH (21:35)
[2017-06-19] MEDS: ACETAMINOPHEN 325 MG TABLET (FP) PO PRN (02:19)
[2017-06-19] MEDS: INSULIN SLIDING SCALE (NOVOLOG) 1 VIAL SQ SCH ×3 (06:06→16:49)
[2017-06-19] MEDS ORDERED: PT OWN MED DRAWER 7, Y5N ONE (08:34)
[2017-06-19] MEDS: LIPASE/PROTEASE/AMYLASE 36,000 UNIT CAPSULE PO SCH ×3 (08:40→16:50)
[2017-06-19] MEDS: LIPASE/PROTEASE/AMYLASE 6,000 UNIT CAPSULE PO SCH ×3 (08:40→16:50)
[2017-06-19] MEDS: AMINO ACIDS/PROTEIN HYDROLYS 30 ML LIQUID.PKT PO SCH ×2 (08:46→16:50)
[2017-06-19] MEDS: PANTOPRAZOLE SODIUM 40 MG VIAL IVPUSH SCH (09:21)
[2017-06-19] MEDS: DOCUSATE SODIUM 100 MG CAPSULE (FP) PO SCH (09:21)
--- NOTE | 2017-06-19 10:38 | DS ---
Physical Examination Vital Signs: Vital Signs Temperature 98.4 F 06/19/17 08:46 Pulse Rate 89 06/19/17 08:46 Respiratory Rate 20 06/19/17 08:46 Blood Pressure 116/65 06/19/17 08:46 O2 Sat by Pulse Oximetry (%) 96 06/19/17 08:46 Findings/Remarks: AWAKE ALERT EATING REFUSING FURTHER MRI AND WORKUP WOULD LIKE TO HAVE DONE OUTPATIENT PATIENT IS ALERT AND ORIENTED X 3 CAN MAKE HER OWN DECISIONS Constitutional: Yes: No Distress Eyes: Yes: WNL HENT: Yes: WNL, Tonsillar Exudate Cardiovascular: Yes: WNL Respiratory: Yes: WNL Gastrointestinal: Yes: WNL Musculoskeletal: Yes: WNL Extremities: Yes: WNL Edema: No Peripheral Pulses WNL: Yes Integumentary: Yes: WNL Wound/Incision: Yes: Clean/Dry Neurological: Yes: WNL ...Motor Strength: WNL Psychiatric: Yes: Other Labs: CBC, BMP 06/18/17 06:38 06/18/17 06:38 Discharge Summary Reason For Visit: ANEMIA,BACK PAIN Current Active Problems Anemia (Acute) Back pain (Acute) PANCREATIC CANCER Procedures: Principal: MRI BRAIN Hospital Course: TRANSFUSED PRBC, ANEMIA IMPROVED, GI F/U OUTPATIENT ALONG WITH ONCOLOGY. WILL COMPLETE MRI OF CSPINE AND MONITOR H/H WITH CBC TOMORROW MORNING AT HER PMD OFFICE DR ASHLEY NICOLE Condition: Stable - Instructions Diet, Activity, Other Instructions: REG DIET SEE DR ASHLEY NICOLE TOMORROW FOR CBC/LABS MRI CSPINE OPEN MRI OUTPATIENT UNABLE TO LAY DOWN IN MACHINE FOR CLOSED MRI. Disposition: VNS/HOME HEALTH CARE - Home Medications Comprehensive Discharge Medication List: Ambulatory Orders Amlodipine Besylate [Norvasc -] 10 mg PO HS 11/23/15 Lipase/Protease/Amylase [Rosa Sanches 24,000 Units Capsule] 2 each PO TID 09/01/16 Esomeprazole Magnesium [Nexium 24Hr] 40 mg PO DAILY 04/22/17 Insulin Glargine,Hum.rec.anlog [Lantus] 10 unit SQ HS 04/22/17 Acetaminophen [Tylenol] 650 mg PO QID PRN 06/16/17 Tramadol HCl [Ultram] 50 mg PO ASDIR PRN 06/16/17
[2017-06-19] MEDS ORDERED: INSULIN (NOVOLOG) ASPART 100 UNITS/ML 10ML VIAL ONE (11:47)
[2017-06-19] MEDS: SODIUM CHLORIDE 1,000 ML IV SCH (11:52)
[2017-06-19 19:17] VITALS: BP 131/70; PULSE 93; TEMP 98
--- NOTE | 2017-06-27 11:11 | PN ---
Progress Note (short form) - Note Progress Note: Called patient--informed her of MRI brain results. 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 Isidro--who have the MRI reports per patient
== END 2017-06-19 17:43 | disposition home health service (06) | DRG 436 ==
LOC: JER 20:42 → JERBED 06-17 01:35 → OBSVTOIN 06-17 01:35 → INTOOBSV 06-17 01:35 → J4S 06-17 03:25
PROVIDERS: ADMIT Internal Medicine; ATTEND Family Medicine
PROC: 30233N1 Transfusion of Nonautologous Red Blood Cells into Peripheral Vein, Percutaneous Approach (ICD-10-PCS; principal; 2017-06-17)
DX: C25.9 Malignant neoplasm of pancreas, unspecified (principal); R64 Cachexia; Z68.1 Body mass index [BMI] 19.9 or less, adult; J98.11 Atelectasis; D64.9 Anemia, unspecified; E11.9 Type 2 diabetes mellitus without complications; I10 Essential (primary) hypertension; E78.5 Hyperlipidemia, unspecified; K21.9 Gastro-esophageal reflux disease without esophagitis; M54.9 Dorsalgia, unspecified
CPT/HCPCS: 36415; 36430; 70553-TC; 71046-TC-FY; 73030-TC-RT-FY; 80048; 80053; 81003; 82272; 82550; 82607; 82728; 82746; 82962; 83036; 83540; 83550; 83735; 84100; 84466; 84484; 85025; 85027; 85610; 85730; 86850; 86900; 86901; 86922; 93005; 93010; 97116-GP; 97162-GP; 99285-25; J0131; J7030; P9038; P9058